=== PATIENT | male | born 1945 | race Caucasian/White ===

== ENCOUNTER 2018-06-25 05:13 | Inpatient (IN) | payer MEDICARE, BC ==
[2018-06-25 06:54] LABS: Hemoglobin 9.8 g/dL (14.0-18.0); Mean Corpuscular HGB CONC 32.8 g/dL (32.0-36.0); Mean Corpuscular Volume 97.6 fL (78.0-98.0); Mean Platelet Volume 9.6 fL (7.4-10.4); Platelet Count 495 thou/uL (130-400); RBC Distribution Width 15.7 % (11.5-14.5); Red Blood Cell (RBC) Count 3.06 mill/uL (4.70-6.10); White Blood Cell (WBC) Count 27.4 thou/uL (4.8-10.8)
[2018-06-25 07:08] LABS: ALT (SGPT) 165 U/L (8-55); AST (SGOT) 358 U/L (5-34); Albumin 3.7 g/dL (3.4-4.8); Alkaline Phosphatase 108 U/L (40-150); Anion Gap 24 mmol/L (10-20); BUN (Urea Nitrogen) 29 mg/dL (8.4-25.7); Bilirubin, Total 0.5 mg/dL (0.2-1.2); CK (CPK) 457 U/L (30-200); Calc. Creatinine Clearance 0 mL/min (70-130); Calcium 10.2 mg/dL (7.8-10.44); Carbon Dioxide 30 mmol/L (23-31); Chloride 92 mmol/L (98-107); Estimated GFR-MDRD 11; Globulin 3.7 g/dL (2.4-3.5); Glucose 159 mg/dL (83-110); Phosphorus 5.4 mg/dL (2.3-4.7); Potassium 4.5 mmol/L (3.5-5.1); Protein, Total 7.4 g/dL (5.8-8.1); Sodium 141 mmol/L (136-145)
[2018-06-25 07:15] LABS: Band 44 % (5-11); Lymphocytes 4 % (21-51); MDiff Complete? YES; Metamyelocyte 3 % (0-0); Monocytes 3 % (0-10); Myelocyte 1 % (0-0); Neutrophil 45 % (42-75); PLT Morphology Comment Appears Increased; Polychromasia SLIGHT = 2-3 cells (100X) (0-2/hpf); Reflex for Review?? YES; Toxic Granulation SLIGHT; Vacuoles MODERATE
[2018-06-25 08:06] LABS: Troponin I 0.036 ng/mL (< 0.028)
[2018-06-25] MEDS ORDERED: Piperacillin/Tazobactam 4.5 GM VIAL ONE (09:25)
[2018-06-25] MEDS ORDERED: Piperacillin/Tazobactam 4.5 GM in Sodium Chloride 0.9% 100 ML IVPB SCH (09:30)
--- NOTE | 2018-06-25 10:07 | RAD ---
PORTABLE UPRIGHT FRONTAL CHEST RADIOGRAPH: 06/25/2018 HISTORY: Fall. COMPARISON: 12/24/2015 FINDINGS: Midline sternotomy wires and mediastinal clips are present. No pneumothorax or pleural fluid is seen . There is no lobar consolidation or alveolar edema. IMPRESSION: No acute findings. POS: [facility]
[2018-06-25 12:21] LABS: Lactic Acid 2.1 mmol/L (0.5-2.2)
[2018-06-25] MEDS ORDERED: Dextrose 5% in Water 1,000 ML IV PRN (14:01)
[2018-06-25] MEDS ORDERED: Dextrose 50% Abboject 50 ML SYRINGE SLOW IVP PRN (14:01)
[2018-06-25] MEDS ORDERED: HumaLOG 300 UNITS/3 ML VIAL SC PRN (14:01)
[2018-06-25] MEDS ORDERED: Acetaminophen 325 MG TAB PO PRN (14:01)
[2018-06-25] MEDS ORDERED: Ondansetron ODT 4 MG TAB PO PRN (14:01)
[2018-06-25] MEDS ORDERED: hydrALAZINE 20 MG/ML VIAL SLOW IVP PRN (14:01)
[2018-06-25] MEDS ORDERED: VANCOMYCIN IVPB PRN (14:08)
--- NOTE | 2018-06-25 14:22 | HP ---
DATE OF ADMISSION: 06/25/2018 PRIMARY CARE PHYSICIAN: Dr. Turcios. CHIEF COMPLAINT: Severe weakness. HISTORY OF PRESENT ILLNESS: Mr. Keller is a pleasant 73-year-old gentleman that has a history of e nd-stage renal disease on hemodialysis. He also has a history of hypertension and diabetes mellitus. He was in his usual state of health until after dialysis. This past dialysis, he felt very weak an d felt like his legs were just going to give out. He says that he had to basically drag himself back into the house. He thought that it might be his blood sugar, so he took some sugar pills, but it di d not improve and he continued to be extremely weak. As a result, he called EMS and they brought him to the hospital for evaluation. In the evaluation, it was found that he had an elevated white blood cell count at 27,000 and also an elevated lactic acid. There was no evidence of any overt infection such as in the chest. He had been having some abdominal discomfort off and on after further bea mcginnis and his workers compensation analyst had some concerns for bacterial peritonitis and apparently took a culture f rom the peritoneal cavity and it sounds like he may have given him antibiotics IV and possibly intrap eritoneal as well. This sounds like this was done about a week ago and he is being admitted for furt her evaluation and treatment. The patient also mentions having some nausea and vomiting off and on a nd he started having diarrhea while here in the emergency room. Prior to that, he was having constip ation and besides that, he does have the extreme fatigue and some occasional dizziness. Otherwise, n o other complaints. REVIEW OF SYSTEMS: All systems were reviewed and are negative except for that mentioned in the histo ry of present illness. PAST MEDICAL HISTORY: Significant for end-stage renal disease on hemodialysis, coronary artery disea se, cerebrovascular disease, hypertension, diabetes mellitus and hypercholesterolemia. PAST SURGICAL HISTORY: He has had a cholecystectomy, rotator cuff tear and he has had bypass surgery . ALLERGIES: No known drug allergies. FAMILY HISTORY: Significant for father who had deep vein thrombosis or thrombophlebitis and fro m this. SOCIAL HISTORY: He is a former smoker. He had smoked 4 packs a day at one time and has a 40-pack-ye ar history of smoking. Occasional alcohol use. No illicit drug use. He is single and never been ma rried. He is retired from the postal service. CODE STATUS: Full code and his sister, Ms. Neda Anton is his surrogate medical decision maker. MEDICATIONS: His medications are taken from the records in the ER and include glipizide 5 mg daily, simvastatin 20 mg daily, gemfibrozil 600 mg twice a day, losartan 100 mg daily, aspirin 81 mg daily, calcium acetate 667 mg 2 tablets 3 times a day with meals, metoprolol 50 mg daily, vitamin D3 5000 un its daily, amlodipine 10 mg once at bedtime, fluticasone nasal spray, isosorbide mononitrate extended release 30 mg daily. PHYSICAL EXAMINATION: GENERAL: He is awake and alert and oriented. He appears to be in no acute distress. VITAL SIGNS: Blood pressure was 101/53, heart rate 84, respiratory rate of 20, temperature is 98.1, O2 sats 92% on room air. HEENT: Pupils are equal, round and reactive. Extraocular muscles are intact. His sclerae are anict salima. Throat, there is no erythema, no exudates. NECK: No adenopathy, no bruits. LUNGS: He has got basilar crackles on both sides and a patch of E to A change on the left in the mid lung zone area. CARDIOVASCULAR: He had a normal S1, S2. There is no S3 or S4. No murmurs, clicks, no rubs. ABDOMEN: Obese, it is soft. There was no tenderness. I was unable to appreciate any organomegaly; however, his abdomen was quite distended. The peritoneal catheter was in place. There was some bernardo r, but reddish fluid from the peritoneal dialysis catheter. There is no erythema around the site. N egative fluid wave. EXTREMITIES: In his lower extremities, there is no edema. His dorsalis pedis pulses were diminished and I was actually unable to palpate any dorsalis pedis on the right. On the left, it was about 1+ and the left foot seemed to be a little bit warmer than on the right; however, there was no cyanosis. He did have some diminished or slow to sluggish capillary refill, but no cuts or lesions. NEUROLOGICAL: The straight leg raises were negative and again there was no weakness in his muscle st rength. LABORATORY RESULTS: His sodium was 141, his potassium was 4.5, chloride is 92, CO2 is 24, BUN of 29, creatinine of 5.05, glucose is 159, bilirubin is 0.5, AST 358, ALT is 165, creatinine kinase was 457 . Troponin was 0.036. White blood cell count 27.4, hemoglobin 9.8, hematocrit is 29.9, platelet cou nt is 495,000. He had 44% bands. ASSESSMENT AND PLAN: 1. This is a pleasant 73-year-old gentleman who comes with generalized weakness in both of his legs, the etiology of which is unclear; however, we suspect that it is likely due to sepsis. He meets sep sis criteria with elevated white blood cell count and generalized weakness as well as an elevated lac tic acid. His LFTs are also elevated as well. He has a history of having a cholecystectomy. It is possible that the LFTs could be elevated due to sepsis as well. The source is possibly from bacteria l peritonitis. He will be admitted and started on IV antibiotics. Cultures have been taken from his workers compensation analyst and therefore, we will contact him and hopefully he can send the results to us so that we can tailor his antibiotics. The workers compensation analyst corporate travel consultant would like to have the PD catheter removed a nd likely we can culture the PD catheter tip. 2. Elevated liver function tests, again likely related to sepsis; however, we will check a hepatitis panel and he has already had his gallbladder removed. He does not appear to have a cholestatic pict ure as his alkaline phosphatase and bilirubin are within normal limits. 3. End-stage renal disease. We will continue hemodialysis and Dr. Rojas has already been notified . 4. Diabetes mellitus. We will start his usual medications as well as sliding scale insulin. We kaleb l also get PT, OT assessment to evaluate his strength. If he continues to have leg weakness, then we will need to entertain alternative diagnosis such as disease in the lumbar spine, etc.
[2018-06-25] MEDS: Heparin 5,000 UNITS/ML VIAL SC SCH ×2 (15:39→20:26)
[2018-06-25 15:45] VITALS: BMI 25.4
[2018-06-25 16:25] LABS: HBCM Index 0.06 S/CO (0-0.79); HBSAg Index 0.21 S/CO (0-0.99); Hep A IgM AB Non-Reactive (NonReactive); Hep A IgM S/CO 0.09 S/CO (0-0.79); Hep B Surf Ag Non-Reactive S/CO (NonReactive); Hep C IgG Ab Non-Reactive (NonReactive); Hep C Index 0.12 S/CO (0-0.79); Hepatitis B Core IGM Abs Non-Reactive (NonReactive)
[2018-06-25] MEDS ORDERED: Vancomycin HCl 500 MG in Sodium Chloride 0.9% 100 ML IVPB SCH (16:30)
[2018-06-25] MEDS ORDERED: HOLD VANCOMYCIN FOR LEVEL >20 FS SCH (16:30)
[2018-06-25] MEDS ORDERED: Vancomycin HCl 1 GM in Premix Bag 1 BAG IVPB SCH (16:30)
[2018-06-25] MEDS ORDERED: Vancomycin HCl 1.25 GM in Sodium Chloride 0.9% 250 ML 250 ML IVPB SCH (16:30)
[2018-06-25] MEDS: Vancomycin HCl 500 MG in Sodium Chloride 0.9% 100 ML IVPB SCH ×2 (18:41→20:21)
[2018-06-25] MEDS: Piperacillin/Tazobactam 2.25 GM in Sodium Chloride 0.9% 100 ML IVPB SCH (21:30)
--- NOTE | 2018-06-26 00:51 | CON ---
DATE OF CONSULTATION: 06/25/2018 CONSULTING PHYSICIAN: Dr. Leopoldo Ordaz. REASON FOR CONSULTATION: End-stage renal disease evaluation and care. REASON FOR ADMISSION: Weakness. HISTORY OF PRESENT ILLNESS: This is a 73-year-old male with a history of end-stage renal disease, co ronary artery disease, cerebrovascular disease, type 2 diabetes, hypertension, came to the hospital w [facility]. He has dialysis Thursday, and Thursday and Dr. Escudero from [facility]. He does not round her and I was asked to see the patient while he is being treated at [facility]. Denies any fever . He was also having leukocytosis and there was concern for peritoniti s. His PD fluid was sent for cultures. He was given vancomycin and gentamicin as outpatient. No ch est pain, palpitation, no nausea, vomiting, or diarrhea. He denies any abdominal pain or back pain. PAST MEDICAL HISTORY: Positive for end-stage renal disease, coronary artery disease, cerebrovascular disease, hypertension, diabetes, hyperlipidemia. PAST SURGICAL HISTORY: Cholecystectomy, rotator cuff surgery, bypass surgery. HOME MEDICATIONS: Glipizide, simvastatin, gemfibrozil, losartan, aspirin, calcium acetate, metoprolo l, vitamin D3, amlodipine, fluticasone, isosorbide mononitrate. ALLERGIES: No known drug allergies. SOCIAL HISTORY: No smoking, alcohol or illicit drug abuse. He is a former smoker. FAMILY HISTORY: Positive for clots. REVIEW OF SYSTEMS: The following complete review of systems was negative, unless otherwise mentioned in the HPI or below: Constitutional: Weight loss or gain, ability to conduct usual activities. Sk in: Rash, itching. Eyes: Double vision, pain. ENT/Mouth: Nose bleeding, neck stiffness, pain, te nderness. Cardiovascular: Palpitations, dyspnea on exertion, orthopnea. Respiratory: Shortness of breath, wheezing, cough, hemoptysis, fever or night sweats. Gastrointestinal: Poor appetite, abdom inal pain, heartburn, nausea, vomiting, constipation, or diarrhea. Genitourinary: Urgency, frequenc y, dysuria, nocturia. Musculoskeletal: Pain, swelling. Neurologic/Psychiatric: Anxiety, depressio n. Allergy/Immunologic: Skin rash, bleeding tendency. PHYSICAL EXAMINATION: GENERAL: This is a well-built male, in no apparent distress. VITAL SIGNS: Temperature 97.5, pulse 80, respiratory rate 16, blood pressure 105/67. HEENT: Atraumatic, normocephalic. Oral mucosa is moist. NECK: Supple, no masses. CARDIOVASCULAR: S1, S2 heard. Rate and rhythm regular. RESPIRATORY: Clear. GASTROINTESTINAL: Abdomen is soft distended and nontender. MUSCULOSKELETAL: 1+ edema. DERMATOLOGIC: No skin rash. NEUROLOGIC: Alert and awake. PSYCHIATRIC: Normal mood and affect. LABORATORY DATA: Hemoglobin is 9.8. Potassium is 4.5, BUN is 29, creatinine is 5.05. ASSESSMENT AND PLAN: 1. End-stage renal disease. Plan is to continue on dialysis Thursday, and Thursday . 2. Edema, controlled. 3. Hypertension, stable. 4. Anemia. We will add Epogen with dialysis. 5. Leukocytosis. PD fluid culture sent from outpatient, followup the results and continue broad spe ctrum antibiotics. We will monitor vancomycin level. We will continue on dialysis Thursday, and Thursday as tolerated. Thank you for the consult.
[2018-06-26] MEDS: Piperacillin/Tazobactam 2.25 GM in Sodium Chloride 0.9% 100 ML IVPB SCH ×3 (03:54→21:16)
[2018-06-26 05:36] LABS: Anion Gap 21 mmol/L (10-20); BUN (Urea Nitrogen) 48 mg/dL (8.4-25.7); Calc. Creatinine Clearance 11 mL/min (70-130); Calcium 9.3 mg/dL (7.8-10.44); Carbon Dioxide 27 mmol/L (23-31); Chloride 98 mmol/L (98-107); Estimated GFR-MDRD 9; Potassium 3.9 mmol/L (3.5-5.1); Sodium 142 mmol/L (136-145)
[2018-06-26 05:40] LABS: Glucose 46 mg/dL (83-110)
[2018-06-26 06:44] LABS: Band 2 % (5-11); Eosinophils 4 % (0-10); Hemoglobin 8.4 g/dL (14.0-18.0); Hypochromia SLIGHT = 6-15 cells (100X) (0-5/hpf); Lymphocytes 17 % (21-51); MDiff Complete? YES; Mean Corpuscular HGB CONC 31.3 g/dL (32.0-36.0); Mean Corpuscular Hemoglobin 30.5 pg (27.0-31.0); Mean Corpuscular Volume 97.4 fL (78.0-98.0); Mean Platelet Volume 10.2 fL (7.4-10.4); Monocytes 9 % (0-10); Neutrophil 68 % (42-75); PLT Morphology Comment Appears Adequate; Platelet Count 372 thou/uL (130-400); RBC Distribution Width 15.8 % (11.5-14.5); Red Blood Cell (RBC) Count 2.77 mill/uL (4.70-6.10); White Blood Cell (WBC) Count 21.3 thou/uL (4.8-10.8)
[2018-06-26 08:54] LABS: Vancomycin, Random 21.2 ug/mL (See Comment)
[2018-06-26] MEDS ORDERED: Vancomycin HCl 1 GM in Premix Bag 1 BAG IVPB SCH (09:00)
[2018-06-26] MEDS: Heparin 5,000 UNITS/ML VIAL SC SCH ×3 (09:00→21:19)
[2018-06-26] MEDS: Epoetin (ESRD) 20,000 UNITS/ML IVP SCH (10:00)
--- NOTE | 2018-06-26 11:41 | PDOC.PN ---
- Subjective Encounter Start Date: 06/26/18 Encounter Start Time: 11:39 Mr. Vazquez was seen today in follow-up of generalized weakness, and possible Peritonitis. - Objective Resuscitation Status: Resuscitation Status FULL:Full Resuscitation MAR Reviewed: Yes Vital Signs & Weight: Vital Signs (12 hours) Temp Pulse Resp BP Pulse Ox 06/26/18 07:10 97.7 F 83 16 98 06/26/18 07:09 97.7 F 83 16 101/64 98 06/26/18 04:00 97.8 F 79 16 113/68 98 06/26/18 00:00 97.9 F 79 16 96/67 95 Weight Weight 167 lb 9 oz Result Diagrams: 06/26/18 04:37 06/26/18 04:37 Additional Labs: Accuchecks 06/26/18 06/26/18 06/25/18 06:26 05:09 19:50 POC Glucose 93 59 L* 147 H 06/25/18 17:02 POC Glucose 108 Phys Exam - Physical Examination HEENT: PERRLA Respiratory: no wheezing, no rales, no rhonchi, clear to auscultation bilateral Cardiovascular: RRR, no significant murmur, no rub Gastrointestinal: soft, non-tender, positive bowel sounds Musculoskeletal: no edema Neurological: non-focal Dx/Plan (1) Sepsis Code(s): A41.9 - SEPSIS, UNSPECIFIED ORGANISM Status: Acute (2) End stage renal disease on dialysis Code(s): N18.6 - END STAGE RENAL DISEASE; Z99.2 - DEPENDENCE ON RENAL DIALYSIS Status: Chronic (3) Hypertension Code(s): I10 - ESSENTIAL (PRIMARY) HYPERTENSION Status: Chronic (4) Diabetes mellitus type 2 in nonobese Code(s): E11.9 - TYPE 2 DIABETES MELLITUS WITHOUT COMPLICATIONS Status: Chronic - Plan * Sepsis- ? related to Bacterial Peritonitis- I spoke with Dr. Jason Escudero his Mill Attendant, who says the PD cultures are still pending, and he expects them back on Thursday * Removal of PD catheter is recommended- will consult General Surgery for this * DM- he had some episodes of hypoglycemia- will need to encourage oral intake * HTN- blood pressure is stable.
--- NOTE | 2018-06-26 11:53 | PRG ---
DATE OF SERVICE: 06/26/2018 SUBJECTIVE: Patient was seen and examined at bedside and overnight events noted. Patient denies any shortness of breath or chest pain or palpitation. No history of nausea or vomiting or diarrhea or f ever or chills or cramps. OBJECTIVE: GENERAL: This is a well-built male in no apparent distress, seen during dialysis. VITAL SIGNS: Temperature 97.7, pulse 82, respirations 16, blood pressure 101/64. HEENT: Atraumatic, normocephalic. Oral mucosa is moist. NECK: Supple. CARDIOVASCULAR: S1, S2 heard. Rate and rhythm regular. RESPIRATORY: Clear to auscultation. GASTROINTESTINAL: Abdomen is soft. MUSCULOSKELETAL: No tenderness, no edema. DERMATOLOGIC: No skin rash. NEUROLOGIC: Alert and awake and oriented x3. No focal neurologic deficits. Moving all the extremit ies. PSYCHIATRIC: Mood and affect normal. LABORATORY DATA: Potassium is 3.9, BUN is 48, creatinine is 6.3. ASSESSMENT AND PLAN: 1. End-stage renal disease, continue on hemodialysis, Thursday, , Thursday as tolerated. 2. Edema, controlled. 3. Hypertension. 4. Anemia. Continue hemodialysis as tolerated.
[2018-06-26] MEDS: Famotidine 20 MG TAB PO SCH (12:32)
--- NOTE | 2018-06-27 00:06 | CON ---
DATE OF CONSULTATION: 06/26/2018 REASON FOR CONSULTATION: Removal of peritoneal dialysis catheter. HISTORY: Mr. Keller is a 73-year-old man with end-stage renal failure. He was previously on perit saenz dialysis, but has transitioned to hemodialysis with a right-sided fistula in place which is fun ctioning well. He states that he last tried to use his peritoneal dialysis catheter 2 weeks ago, but it was painful and would not infuse. He has undergone revision of this already and his surgeon has told him that he does not think that it can be revised farther. His dentofacial orthopedics dentist is concerned that celestine coates has peritonitis since he had some abdominal pain. Peritoneal cultures have been sent, but these re sults are not available on the computer. The patient denies any abdominal pain at the current time a nd has not had any fevers or chills. He came into the hospital because of feeling weak and he is daxa pected to be septic due to his peritonitis, but he is feeling better since getting IV fluids and anti biotics. PAST MEDICAL HISTORY: End-stage renal disease, coronary artery disease, cerebrovascular disease, hyp ertension, diabetes, and hyperlipidemia. PAST SURGICAL HISTORY: Cholecystectomy, peritoneal dialysis catheter placement and revision, rotator cuff tear, bypass surgery and right AV fistula. ALLERGIES: No known drug allergies. OUTPATIENT MEDICATIONS: Amlodipine, aspirin, PhosLo, glipizide, losartan, metoprolol, and simvastati n. INPATIENT MEDICATIONS: Procrit, Pepcid, sliding scale insulin, subcu heparin, sliding scale vancomyc in, and Zosyn. FAMILY HISTORY: Noncontributory. REVIEW OF SYSTEMS: Ten system review of systems is negative except per HPI as well as occasional edward sea and diarrhea. He states that when he tried to use his peritoneal dialysis catheter, it was very painful for him. SOCIAL HISTORY: He does not use illicit drugs and quit smoking many years ago, but used to be a heav y smoker, only social alcohol use. LABORATORY DATA: Chest x-ray did not show any obvious infiltrates and blood cultures are no growth t o date. White count is still elevated, but has gone from 27,000 to 21,000. Hematocrit 27, platelets 372. Glucose has been intermittently low in the 40s and 50s, but was 119 on his most recent check. Electrolytes are unremarkable. BUN and creatinine are 48 and 6.34. Random vancomycin level this mo rning was 21. PHYSICAL EXAMINATION: VITAL SIGNS: The patient has been afebrile since his admission. Heart rate 90, respirations 18, 95% saturated on nasal cannula O2. Blood pressure 129/78, but has been as low as 98/60. GENERAL: Reve als a healthy appearing elderly man in no acute distress. He is not flushed or toxic in appearance. He is not jaundiced or icteric. HEENT: Unremarkable. NECK: Supple, without lymphadenopathy or thyroid nodules. HEART: Regular in its rate and rhythm without murmurs, rubs or gallops. LUNGS: Clear. ABDOMEN: Soft, nontender and nondistended. His PD catheter is in place and there is no discharge or erythema. EXTREMITIES: Warm and well perfused without edema. He has an excellent thrill in his right forearm AV fistula. NEUROLOGIC: No focal deficits. PSYCHIATRIC: Alert, oriented, and appropriate. ASSESSMENT: Suspected sepsis due to peritoneal dialysis catheter-associated peritonitis. His perito evan dialysis catheter is nonfunctional, and he has converted to hemodialysis, and so his nephrologis t has requested removal of the peritoneal dialysis catheter. I have scheduled this for tomorrow. He is on scheduled antibiotics. The procedure and its inherent risks were discussed with the patient. These include, but are not limited to bleeding, infection, risks of anesthesia, damage to nearby str uctures such as intestine, hernia, and wound healing problems. He understands and accepts these risk s and wishes to proceed. All of his questions were answered.
[2018-06-27] MEDS: Piperacillin/Tazobactam 2.25 GM in Sodium Chloride 0.9% 100 ML IVPB SCH ×3 (04:59→20:53)
[2018-06-27] MEDS: Heparin 5,000 UNITS/ML VIAL SC SCH ×3 (09:00→20:54)
[2018-06-27] MEDS ORDERED: Fentanyl 100 MCG/2 ML VIAL ONE (09:06)
[2018-06-27] MEDS ORDERED: Lidocaine 2% Jelly 5 ML TUBE ONE (09:06)
[2018-06-27] MEDS ORDERED: Sodium Chloride 0.9% 0 ML ONE (09:11)
[2018-06-27] MEDS ORDERED: Bupivacaine/Epinephrine 0.25% 30 ML VIAL ONE (09:11)
[2018-06-27] MEDS ORDERED: Lidocaine 2% 10 ML INJ ONE (09:11)
[2018-06-27 09:41] LABS: Anion Gap 15 mmol/L (10-20); BUN (Urea Nitrogen) 26 mg/dL (8.4-25.7); Calc. Creatinine Clearance 16 mL/min (70-130); Calcium 8.9 mg/dL (7.8-10.44); Carbon Dioxide 27 mmol/L (23-31); Chloride 100 mmol/L (98-107); Estimated GFR-MDRD 13; Glucose 127 mg/dL (83-110); Potassium 4.1 mmol/L (3.5-5.1); Sodium 138 mmol/L (136-145)
[2018-06-27] MEDS ORDERED: Ondansetron HCl/PF 4 MG/2 ML Vial IVP PRN (10:27)
[2018-06-27] MEDS ORDERED: Promethazine HCl 25 MG/ML VIAL IM PRN (10:27)
[2018-06-27] MEDS ORDERED: Promethazine HCl 25 MG/ML VIAL SLOW IVP PRN (10:27)
[2018-06-27 11:17] LABS: Band 4 % (5-11); Eosinophils 4 % (0-10); Hemoglobin 9.2 g/dL (14.0-18.0); Hypochromia SLIGHT = 6-15 cells (100X) (0-5/hpf); Lymphocytes 18 % (21-51); MDiff Complete? YES; Mean Corpuscular HGB CONC 32.3 g/dL (32.0-36.0); Mean Corpuscular Hemoglobin 31.6 pg (27.0-31.0); Mean Corpuscular Volume 97.7 fL (78.0-98.0); Mean Platelet Volume 9.9 fL (7.4-10.4); Monocytes 6 % (0-10); Neutrophil 68 % (42-75); PLT Morphology Comment Appears Adequate; Platelet Count 392 thou/uL (130-400); Polychromasia SLIGHT = 2-3 cells (100X) (0-2/hpf); RBC Distribution Width 15.8 % (11.5-14.5); Red Blood Cell (RBC) Count 2.91 mill/uL (4.70-6.10); White Blood Cell (WBC) Count 13.5 thou/uL (4.8-10.8)
[2018-06-27] MEDS: Famotidine 20 MG TAB PO SCH (11:23)
[2018-06-27] MEDS ORDERED: Triple Antibiotic Oint 1 GM Packet TOP PRN (11:28)
--- NOTE | 2018-06-27 13:54 | PRG ---
DATE OF SERVICE: 06/27/2018. SUBJECTIVE: Patient was seen and examined at bedside and overnight events noted. Patient denies any shortness of breath or chest pain or palpitation. No history of nausea or vomiting or diarrhea or f ever or chills or cramps. OBJECTIVE: GENERAL: This is a well-built male in no apparent distress. VITAL SIGNS: Temperature 97.7, pulse 93, respiration 18, blood pressure 122/70. HEENT: Atraumatic, normocephalic. Oral mucosa is moist. NECK: Supple. CARDIOVASCULAR: S1, S2 heard. Rate and rhythm regular. RESPIRATORY: Clear to auscultation. GASTROINTESTINAL: Abdomen is soft. MUSCULOSKELETAL: No tenderness, no edema. DERMATOLOGIC: No skin rash. NEUROLOGIC: Alert and awake and oriented x3. No focal neurologic deficits. Moving all the extremit ies. PSYCHIATRIC: Mood and affect normal. LABORATORY DATA: Potassium is 4.1, BUN 26, creatinine is 4.4. ASSESSMENT AND PLAN: 1. End-stage renal disease. Continue on hemodialysis Thursday, , and Thursday. 2. Edema, . 3. Hypertension, stable. 4. Anemia. Plan is to continue on dialysis as tolerated.
[2018-06-27] MEDS ORDERED: Lidocaine 1% PF 5 ML VIAL ONE (14:19)
[2018-06-27] MEDS ORDERED: Ondansetron HCl/PF 4 MG/2 ML Vial ONE (14:19)
[2018-06-27] MEDS ORDERED: PROPOFOL 200 MG/20 ML VIAL ONE (14:19)
[2018-06-27] MEDS ORDERED: ePHEDrine/0.9% NaCl/PF SYRINGE 50 mg/10 ml ONE (14:19)
[2018-06-27] MEDS ORDERED: PHENYLEPHRINE-NS 100 MCG/ML 10 ML SYRINGE ONE (14:19)
--- NOTE | 2018-06-27 14:57 | PDOC.PN ---
- Subjective Encounter Start Date: 06/27/18 Encounter Start Time: 14:56 Mr. Keller was seen today in follow-up of generalized weakness. He says he is doing better, and has less abdominal pain, and is feeling stronger. - Objective Resuscitation Status: Resuscitation Status FULL:Full Resuscitation MAR Reviewed: Yes Vital Signs & Weight: Vital Signs (12 hours) Temp Pulse Resp BP Pulse Ox 06/27/18 12:00 104/65 06/27/18 11:20 97.7 F 88 18 103/62 94 L 06/27/18 07:20 97.7 F 93 16 96 06/27/18 07:08 97.7 F 93 16 122/70 96 06/27/18 04:44 98.6 F 89 20 95/60 100 Weight Weight 167 lb 9 oz I&O: 06/26/18 06/27/18 06/28/18 06:59 06:59 06:59 Intake Total 1030 Output Total 0 Balance 1030 Result Diagrams: 06/27/18 08:52 06/27/18 08:52 Additional Labs: Accuchecks 06/27/18 06/27/18 06/26/18 11:39 04:47 16:32 POC Glucose 121 H 197 H 119 H Phys Exam - Physical Examination HEENT: PERRLA Respiratory: no wheezing, no rales, no rhonchi, clear to auscultation bilateral Cardiovascular: RRR, no significant murmur, no rub Gastrointestinal: soft, non-tender, positive bowel sounds Musculoskeletal: no edema Dx/Plan (1) Sepsis Code(s): A41.9 - SEPSIS, UNSPECIFIED ORGANISM Status: Acute (2) End stage renal disease on dialysis Code(s): N18.6 - END STAGE RENAL DISEASE; Z99.2 - DEPENDENCE ON RENAL DIALYSIS Status: Chronic (3) Hypertension Code(s): I10 - ESSENTIAL (PRIMARY) HYPERTENSION Status: Chronic (4) Diabetes mellitus type 2 in nonobese Code(s): E11.9 - TYPE 2 DIABETES MELLITUS WITHOUT COMPLICATIONS Status: Chronic - Plan * Sepsis- Presumed from bacterial peritonitis- his WBC count is continuing to go down * Hopefully culture results will be available tomorrow * The PD catheter has been removed * Continue PT/OT * HTN- blood pressure is stable * DM- blood glucose is stable.
[2018-06-28] MEDS: Piperacillin/Tazobactam 2.25 GM in Sodium Chloride 0.9% 100 ML IVPB SCH ×3 (04:59→21:01)
[2018-06-28 06:18] LABS: Anion Gap 20 mmol/L (10-20); BUN (Urea Nitrogen) 36 mg/dL (8.4-25.7); Calc. Creatinine Clearance 12 mL/min (70-130); Calcium 8.4 mg/dL (7.8-10.44); Carbon Dioxide 21 mmol/L (23-31); Chloride 102 mmol/L (98-107); Estimated GFR-MDRD 9; Glucose 130 mg/dL (83-110); Potassium 3.7 mmol/L (3.5-5.1); Sodium 139 mmol/L (136-145)
[2018-06-28 07:06] LABS: Hemoglobin 8.6 g/dL (14.0-18.0); Mean Corpuscular HGB CONC 33.9 g/dL (32.0-36.0); Mean Corpuscular Hemoglobin 33.3 pg (27.0-31.0); Mean Corpuscular Volume 98.2 fL (78.0-98.0); Mean Platelet Volume 9.5 fL (7.4-10.4); Platelet Count 352 thou/uL (130-400); RBC Distribution Width 15.9 % (11.5-14.5); Red Blood Cell (RBC) Count 2.57 mill/uL (4.70-6.10); White Blood Cell (WBC) Count 10.7 thou/uL (4.8-10.8)
[2018-06-28] MEDS: Famotidine 20 MG TAB PO SCH (08:03)
[2018-06-28] MEDS: Heparin 5,000 UNITS/ML VIAL SC SCH ×3 (08:03→21:05)
[2018-06-28 08:07] LABS: Band 5 % (5-11); Eosinophils 7 % (0-10); Lymphocytes 20 % (21-51); MDiff Complete? YES; Metamyelocyte 1 % (0-0); Monocytes 5 % (0-10); Myelocyte 3 % (0-0); Neutrophil 58 % (42-75); PLT Morphology Comment Appears Adequate; Polychromasia MODERATE = 3-4 cells (100X) (0-2/hpf); Promyelocytes 1 % (0-0)
--- NOTE | 2018-06-28 10:51 | PRG ---
DATE OF SERVICE: 06/28/2018 SUBJECTIVE: A 73-year-old gentleman being seen for end-stage renal disease. The patient denies any nausea, vomiting or chest pain. PHYSICAL EXAMINATION: GENERAL: Patient is awake, alert. VITAL SIGNS: Afebrile, pulse 92, breathing 16, blood pressure 146/76. OBJECTIVE: See above. Awake, alert, in no acute distress. GENERAL APPEARANCE AND MENTAL STATUS: Fair. HEAD/NECK: Normocephalic. Atraumatic. EYES: EOMI. No deformity. EARS: Clear. No ulcers. NOSE: Intact. No lesions. MOUTH: Clear. No discharge. THROAT: Clear. No exudate. LUNGS: Clear. No crackles. CARDIAC: S1, S2. No rub. ABDOMEN: Benign. BS+. GENITALIA/RECTUM: Call absent. BACK/EXTREMITIES: Edema 0+ Ulcer- NEUROLOGICAL: Alert and motor intact. SKIN: Rash- Bruise- LYMPHATICS: Edema- Ulcer- LABORATORY: Hemoglobin 8.6. ASSESSMENT AND RECOMMENDATIONS: 1. Stage 6 chronic kidney disease. Plan hemodialysis. 2. Hypertension, stable. 3. Anemia, stable. 4. Medication based on glomerular filtration rate are appropriate.
--- NOTE | 2018-06-28 17:10 | PDOC.PN ---
- Subjective Encounter Start Date: 06/28/18 Encounter Start Time: 17:05 Mr. Keller was seen today in follow-up of Leunocytosis and generalized weakness. He says he feels fine. Much less weak. - Objective Resuscitation Status: Resuscitation Status FULL:Full Resuscitation MAR Reviewed: Yes Vital Signs & Weight: Vital Signs (12 hours) Temp Pulse Resp BP Pulse Ox 06/28/18 16:25 98.6 F 95 18 147/75 H 98 06/28/18 11:36 98.1 F 94 18 138/77 98 06/28/18 08:03 98.3 F 92 20 100 06/28/18 07:16 98.3 F 92 20 146/76 H 100 Weight Weight 167 lb 9 oz I&O: 06/27/18 06/28/18 06/29/18 06:59 06:59 06:59 Intake Total 1030 440 Output Total 0 Balance 1030 440 Result Diagrams: 06/28/18 05:53 06/28/18 05:53 Additional Labs: Accuchecks 06/28/18 06/28/18 06/27/18 10:39 04:28 21:03 POC Glucose 133 H 148 H 166 H Phys Exam - Physical Examination HEENT: PERRLA Respiratory: no wheezing, no rales, no rhonchi, clear to auscultation bilateral Cardiovascular: RRR, no significant murmur, no rub Gastrointestinal: soft, non-tender, positive bowel sounds Musculoskeletal: no edema Dx/Plan (1) Sepsis Code(s): A41.9 - SEPSIS, UNSPECIFIED ORGANISM Status: Acute (2) End stage renal disease on dialysis Code(s): N18.6 - END STAGE RENAL DISEASE; Z99.2 - DEPENDENCE ON RENAL DIALYSIS Status: Chronic (3) Hypertension Code(s): I10 - ESSENTIAL (PRIMARY) HYPERTENSION Status: Chronic (4) Diabetes mellitus type 2 in nonobese Code(s): E11.9 - TYPE 2 DIABETES MELLITUS WITHOUT COMPLICATIONS Status: Chronic - Plan * Leukocytosis and Generalized weakness- I called to speak with Dr. Escudero regarding the Cultures from the dialsylate, and unfortunately they were not revealing in that there was too much blood to run any type of results We are therefore not sure if he actually has/had Peritonitis, and if so what organism. For this reason will obtain an ID consult. * C. Diff screen was negative * HTN - blood pressure is stable * DM- blood glucose is stable
--- NOTE | 2018-06-29 02:42 | PRG ---
DATE OF SERVICE: 06/28/2018 Mr. Keller is postoperative day #1 to removal of his peritoneal dialysis catheter. He is feeling w ell and having minimal pain at incision site. He does have packing and the incision and he is going to follow up in clinic on Thursday for removal of the packing and a wound check. From a surgical [facility], he is ready for discharge.
[2018-06-29] MEDS: Piperacillin/Tazobactam 2.25 GM in Sodium Chloride 0.9% 100 ML IVPB SCH ×3 (05:20→20:17)
--- NOTE | 2018-06-29 07:41 | CON ---
DATE OF CONSULTATION: 06/28/2018 REASON FOR CONSULTATION: Possible peritonitis. HISTORY OF PRESENT ILLNESS: A 73-year-old patient who has a history of coronary artery disease, hype rtension, type 2 diabetes mellitus, and end-stage renal disease, currently on hemodialysis through a right upper extremity AV fistula. The patient had a PD catheter insertion this year at [facility] in [place], had to be revised recently because of entrapment and poor dialytic perf ormance and pain. The surgical report was reviewed. The catheter was flushed at the dialysis center , but was not draining. Also, there was an exudate within the catheter as well noted. The procedure was carried out via laparoscopy. Apparently there was some redness as well around the insertion sit e. During the procedure, there were some adhesions noted encasing the catheter in the lower abdomina l wall and there was an intensive inflammatory reaction around the catheter itself. The small bowel adhesions were bluntly cleared and then the catheter was pulled from where it was and freed completel y. Some fatty exudate was stripped from the catheter and catheter was flushed and placed in the ante rior pelvis. This procedure was carried out on 06/14/2018. After that, the patient felt progressive weakness in lower extremities with inability to maintain his position and bear weight and ambulate. He took some ____ tablets, but that did not fix the symptoms and EMS was activated. The patient de nied any fever or chills. Denied any abdominal pain, no genitourinary symptoms, no diarrhea, no blee ding. No headaches. PAST MEDICAL HISTORY: Interstitial lung disease secondary to type 2 diabetes mellitus, coronary adrienne ry disease, prior CVA, hypertension and previous AV fistula placement, PD catheter placement and repo sitioning and had a cholecystectomy in 09/2017 with a small area of perforation. ALLERGIES: None. FAMILY HISTORY: Venous thrombosis. SOCIAL HISTORY: Former smoker, drinks occasionally and is , lives alone, used to work for [employer]. CURRENT MEDICATIONS: Tylenol, dextrose, Procrit, Pepcid, glucagon, heparin, Apresoline, insulin, van comycin and sliding scale and Zosyn. PHYSICAL EXAMINATION: VITAL SIGNS: The patient has remained afebrile throughout the hospital stay. Blood pressure 140/70, pulse 95, respirations 18, O2 saturation 98%. SKIN: Examination shows the ports where the PD catheter was inserted and removal was accomplished. The patient has a peripheral IV access. No lymphadenopathy. HEENT: Ocular movements are conjugate. Sclerae white. Pupils are equal. Oral cavity normal. NECK: Supple. LUNGS: With symmetric clear breath sounds. HEART: S1, S2, regular rate. Soft aortic murmur. No S3. ABDOMEN: Soft, nontender, nondistended. No bladder distention, no organomegaly, no ascites. EXTREMITIES: No joint inflammatory activity noted. Pulses 1+ in dorsalis pedis. Moves all extremit ies equally. NEUROLOGIC: Cognitive function appears to be intact. LABORATORY DATA: White cell count 27,000 down to 10.7, hemoglobin 9.8, platelets were 495 down to 35 2, 45% neutrophils and 44% bands down to 58 and 5 at this time. Sodium 139, creatinine 5.95, AST 358 , ALT 165, alkaline phosphatase 108. Total bilirubin 0.5. Creatinine kinase 457. TSH was 1.2, albu min 3.7, globulin 3.7. Troponin 0.036. Toxicology with random vancomycin and serology with negative hepatitis serology. Microbiology: Two sets of venous blood samples negative at 48 hours. C. diff antigen toxin negative. I called the dialysis center and there was no samples submitted from the per itoneal dialysis fluid apparently. Imaging studies included chest x-ray with no acute findings. ASSESSMENT: 1. Type 2 diabetes. 2. Coronary artery disease. 3. End-stage renal disease on hemodialysis through an AV fistula. 4. Recently placed PD catheter which had to be repositioned just a few days ago because of malfuncti on with entrapment and adhesions noted during the evaluation. 5. Weakness in lower extremities without fever or abdominal pain which led to admission. 6. Neutrophilia. 7. Previous cholecystectomy in September which had some perforation. DISCUSSION: Differential diagnosis includes intra-abdominal inflammatory process, which was not symp tomatic because of diabetic neuropathy versus an alternate process, for example some form of myopathy causing muscle weakness. Bacteremia from an alternate site appears to be less likely. We will at t his point order a CT of abdomen and pelvis with contrast, oral and IV, repeat CPK to see if there is resolution of the elevation in levels detected. If the patient remains with elevated CPK then we kaleb l have to consider the possible myopathy, if not then it was just a rhabdomyolysis associated with th e acute illness. If the blood cultures remain negative and a CT of the abdomen and pelvis is normal , then I would recommend discontinuation of antimicrobial therapy.
[2018-06-29] MEDS: Heparin 5,000 UNITS/ML VIAL SC SCH ×3 (08:40→20:17)
[2018-06-29] MEDS: Famotidine 20 MG TAB PO SCH (08:40)
[2018-06-29 10:32] LABS: Vancomycin, Trough 13.6 ug/mL
[2018-06-29] MEDS: Vancomycin HCl 750 MG in Sodium Chloride 0.9% 250 ML 250 ML IVPB SCH (11:01)
--- NOTE | 2018-06-29 13:04 | PRG ---
DATE OF SERVICE: 06/29/2018 SUBJECTIVE: This is a 73-year-old gentleman being seen for end-stage renal disease. The patient den ies any nausea, vomiting or chest pain. PHYSICAL EXAMINATION: GENERAL: The patient is awake and alert. VITAL SIGNS: Afebrile, pulse 92, breathing 16, blood pressure ____. GENERAL APPEARANCE AND MENTAL STATUS: Fair. HEAD/NECK: Normocephalic. Atraumatic. EYES: EOMI. No deformity. EARS: Clear. No ulcers. NOSE: Intact. No lesions. MOUTH: Clear. No discharge. THROAT: Clear. No exudate. LUNGS: Clear. No crackles. CARDIAC: S1, S2. No rub. ABDOMEN: Benign. BS+. GENITALIA/RECTUM: Call absent. BACK/EXTREMITIES: Edema 0+. Ulcer-. NEUROLOGICAL: The patient is nonverbal. SKIN: Rash-. Bruise-. LYMPHATICS: Edema-. Ulcer-. LABORATORY DATA: Showed hemoglobin 8.6. ASSESSMENT AND RECOMMENDATIONS: ____ chronic kidney disease. Plan hemodialysis. Hypertension, stab le. Anemia, stable. Medication based on glomerular filtration rate are appropriate.
--- NOTE | 2018-06-29 14:59 | PDOC.PN ---
- Subjective Encounter Start Date: 06/29/18 Encounter Start Time: 14:56 Mr. Keller was seen today in follow-up. He does not have any complaints except that he feels a little weak. - Objective Resuscitation Status: Resuscitation Status FULL:Full Resuscitation MAR Reviewed: Yes Vital Signs & Weight: Vital Signs (12 hours) Temp Pulse Resp BP Pulse Ox 06/29/18 12:59 98.6 F 104 H 16 156/71 H 92 L 06/29/18 08:00 97.7 F 98 16 99 06/29/18 07:22 97.7 F 98 16 152/62 H 99 Weight Weight 167 lb 9 oz I&O: 06/28/18 06/29/18 06/30/18 06:59 06:59 06:59 Intake Total 440 1140 Balance 440 1140 Result Diagrams: 06/28/18 05:53 06/28/18 05:53 Additional Labs: Accuchecks 06/29/18 06/29/18 06/28/18 12:56 05:23 19:59 POC Glucose 95 121 H 130 H 06/28/18 16:24 POC Glucose 135 H Phys Exam - Physical Examination HEENT: PERRLA Respiratory: no wheezing, no rales, no rhonchi, clear to auscultation bilateral Cardiovascular: RRR, no significant murmur Gastrointestinal: soft, no distention, positive bowel sounds Musculoskeletal: no edema Dx/Plan (1) Sepsis Code(s): A41.9 - SEPSIS, UNSPECIFIED ORGANISM Status: Acute (2) End stage renal disease on dialysis Code(s): N18.6 - END STAGE RENAL DISEASE; Z99.2 - DEPENDENCE ON RENAL DIALYSIS Status: Chronic (3) Hypertension Code(s): I10 - ESSENTIAL (PRIMARY) HYPERTENSION Status: Chronic (4) Diabetes mellitus type 2 in nonobese Code(s): E11.9 - TYPE 2 DIABETES MELLITUS WITHOUT COMPLICATIONS Status: Chronic - Plan * Leukocytosis, and Generalized weakness- ? etiology- CT scan of the abdomen has been ordered * Weakness today- likely mildly volume depleted after dialysis * HTN- blood pressure is slightly ed- will monitor * DM- blood glucose -stable.
[2018-06-29] MEDS: Epoetin (ESRD) 20,000 UNITS/ML IVP SCH (15:24)
[2018-06-29] MEDS ORDERED: Epoetin (ESRD) 10,000 UNITS/ML VIAL SC SCH (16:45)
[2018-06-29] MEDS ORDERED: Epoetin (ESRD) 20,000 UNITS/ML SC SCH (17:15)
[2018-06-29] MEDS: HumaLOG 300 UNITS/3 ML VIAL SC PRN (17:35)
--- NOTE | 2018-06-29 20:19 | PDOC.GSPN ---
Surgery Progress Note: Subj - Subjective Narrative: Patient feels fine. He is a little bit sore at his incisions but otherwise is not having any abdominal pain. No nausea vomiting or diarrhea. No fever. White count was 10.7 yesterday. Abdominal exam is benign. No additional drainage from the PD catheter removal sites. He states that he is staying in the hospital because he needs to have a repeat CT, but clinically his abdomen is benign. I will plan on removing the osvaldo tomorrow. From a surgical standpoint he is ready for discharge. Surgery Progress Note: Obj - Vital signs Vital signs: Vital Signs - Most Recent Temp Pulse Resp BP Pulse Ox 98.0 F 104 H 16 168/81 H 97 06/29/18 19:35 06/29/18 19:35 06/29/18 19:35 06/29/18 19:35 06/29/18 19:35 Surgery Progress Note: Results - Labs Result Diagrams: 06/28/18 05:53 06/28/18 05:53 Lab results: Laboratory Results - last 24 hr 06/29/18 06/29/18 06/29/18 10:13 12:56 16:51 POC Glucose 95 205 H Vancomycin Trough 13.6
--- NOTE | 2018-06-29 21:08 | PDOC.OP ---
Operative Note - Operative Note Operative Note: PROCEDURE: Removal of peritoneal dialysis catheter DATE OF PROCEDURE: 06/27/2018 SURGEON: Piero Hope M.D. PREOPERATIVE DIAGNOSES: Peritoneal dialysis catheter associated peritonitis POSTOPERATIVE DIAGNOSIS: Peritoneal dialysis catheter associated peritonitis HISTORY: Patient with malfunctioning peritoneal dialysis catheter which has already been revised once and is not functioning. He has pain with infusion of dialysate and came to the hospital with suspicion of sepsis. His traveling secretary has requested removal of the dialysis catheter. Currently he denies any abdominal pain. PROCEDURE IN DETAIL: After informed consent was obtained and appropriate preoperative antibiotics continued patient was taken to the operating room he was placed in supine position and anesthesia was administered. He was prepped and draped in standard sterile fashion and local anesthesia infused the skin and subcutaneous tissues at the peritoneal dialysis catheter exit site. Dissection was carried down to the subcutaneous cuff which was dissected free. The inner cuff appeared to underlie a scar beneath the umbilicus quite some distance from the exit site so additional local anesthesia was infused at that location and a counterincision made. Dissection was carried down to the internal cuff which was dissected free of the tissues just deep to the rectus sheath. The catheter was withdrawn and discarded. There was no peritoneal fluid within the wound and the catheter was full of clot. The rectus sheath was repaired with Vicryl suture under direct vision. Both wounds were copiously irrigated. Packing was placed into both wounds and the skin incisions were partially closed. Sterile dressings were placed and the patient was taken to recovery room in good condition. Estimated blood loss was minimal. There were no complications. There were no specimens.
[2018-06-30] MEDS: Piperacillin/Tazobactam 2.25 GM in Sodium Chloride 0.9% 100 ML IVPB SCH ×3 (04:21→20:16)
[2018-06-30] MEDS: Heparin 5,000 UNITS/ML VIAL SC SCH ×3 (08:18→20:16)
[2018-06-30] MEDS: Famotidine 20 MG TAB PO SCH (08:18)
--- NOTE | 2018-06-30 09:34 | CT ---
CT ABDOMEN WITH CONTRAST: CT PELVIS WITH CONTRAST: HISTORY: Peritonitis. Dialysis patient. Leukocytosis. COMPARISON: None. TECHNIQUE: CT abdomen and pelvis is performed with IV and oral contrast. Coronal reformatted images are submitt ed. FINDINGS: ABDOMEN: Linear opacities in the lung bases, along with more focal interstitial and alveolar opaciti es are noted. Findings may represent scar and atelectasis with small superimposed alveolar infiltrat es. Heart size is normal. There are coronary calcifications. The descending thoracic aorta and abd ominal aorta demonstrate atherosclerosis. No aneurysm or dissection. No periaortic fat stranding. The portal vein is patent. Absent gallbladder. There is calcification of the splenic artery, as well as branches off the celiac artery, along the co urse of the pancreas. The pancreatic parenchyma, adrenal glands, and spleen are unremarkable. Hypoa ttenuation of the liver due to hepatic steatosis without discrete mass. Symmetric enhancement of the kidneys. Bilaterally, no obstructive uropathy. There are bilateral non obstructing intrarenal calculi. Symmetric attenuation of the psoas muscles. There is a nonspecific, mildly enlarged mesenteric lymph node, measuring 0.8 x 0.8 cm. Additional sc attered mesenteric lymph nodes are noted. No mesenteric mass, lymphadenopathy, or free air. There i s fluid in both paracolic gutters. There is evidence of mesenteric fluid predominantly in the right lower quadrant. There is a peripherally enhancing, centrally hypodense lesion in the right lower cele drant mesentery, measuring 3.3 x 4.1 cm. There is a second focus with peripheral enhancement and thi ckened peripheral soft tissue in the right lower quadrant, measuring 2.9 x 1.8 cm. There is a third focus, measuring 2.7 x 0.8 cm, with similar imaging features. There is subcutaneous fat stranding an d air in the ventral abdominal wall, along the midline and left aspect. There is fullness of the mucosa, involving the posterior gastric cardia, which may represent inadequa te distention. Underlying mass lesion cannot be completely excluded. Nonemergent endoscopy is recom mended. Small bowel loops are mildly prominent and fluid filled. There is mild thickening of the sm all bowel mucosa. The ileocecal junction is normal. A normal caliber appendix is identified. Contr ast and fecal material throughout a nondistended, nondilated colon. Occasional diverticula but no di verticulitis. PELVIS: Small amount of free fluid in the pelvis. No mass, lymphadenopathy, or free air. Unremarkable urinary bladder. Evaluation is limited by lack of complete distention. Remote compression fracture at the L3 level, with sclerosis of the superior endplate. IMPRESSION: 1. At least three discrete, peripherally enhancing, centrally hypodense fluid collections in the rig ht lower quadrant mesentery, compatible with multifocal infected fluid collections/abscesses. Given the intricacy of the lesions, with respect to the adjacent bowel, percutaneous abscess drainage is no t recommended at this time. 2. Scattered mesenteric small lymph nodes, which may, in part, be reactive. 3. Questionable mass in the gastric cardia. Nonemergent endoscopy is recommended. POS: JOVANY
--- NOTE | 2018-06-30 11:20 | PRG ---
DATE OF SERVICE: 06/30/2018 SUBJECTIVE: A 73-year-old male being seen for end-stage renal disease. The patient denies any nause a, vomiting or chest pain. PHYSICAL EXAMINATION: GENERAL: Awake, alert. VITAL SIGNS: Afebrile, pulse 91, breathing 16, blood pressure 167/81. OBJECTIVE: See above. Awake, alert, in no acute distress. GENERAL APPEARANCE AND MENTAL STATUS: Fair. HEAD/NECK: Normocephalic. Atraumatic. EYES: EOMI. No deformity. EARS: Clear. No ulcers. NOSE: Intact. No lesions. MOUTH: Clear. No discharge. THROAT: Clear. No exudate. LUNGS: Clear. No crackles. CARDIAC: S1, S2. No rub. ABDOMEN: Benign. BS+. GENITALIA/RECTUM: Call absent. BACK/EXTREMITIES: Edema 0+ Ulcer- NEUROLOGICAL: Alert and motor intact. SKIN: Rash- Bruise- LYMPHATICS: Edema- Ulcer- LABORATORY: Hemoglobin 8.6. ASSESSMENT AND PLAN: 1. Stage 6 chronic kidney disease. We will plan hemodialysis. 2. Hypertension, stable. 3. Anemia, stable. 4. Medication based on glomerular filtration rate are appropriate.
[2018-06-30] MEDS: HumaLOG 300 UNITS/3 ML VIAL SC PRN (12:48)
--- NOTE | 2018-06-30 14:29 | PDOC.PN ---
- Subjective Encounter Start Date: 06/30/18 (f/u sepsis) Encounter Start Time: 14:27 Subjective: Pt reports he's ready to go home. Some weakness -: but walking around. Some pain in the right lower abdomen. -: 3-4 loose stools per day. - Objective Resuscitation Status: Resuscitation Status FULL:Full Resuscitation Vital Signs & Weight: Vital Signs (12 hours) Temp Pulse Resp BP Pulse Ox 06/30/18 08:17 98.0 F 91 16 167/81 H 100 06/30/18 08:00 98.0 F 91 16 100 Weight Weight 167 lb 9 oz I&O: 06/29/18 06/30/18 07/01/18 06:59 06:59 06:59 Intake Total 1140 540 Output Total 4000 Balance 1140 -3460 Result Diagrams: 06/28/18 05:53 06/28/18 05:53 Additional Labs: Accuchecks 06/30/18 06/30/18 06/29/18 11:37 04:19 19:40 POC Glucose 193 H 110 83 06/29/18 16:51 POC Glucose 205 H Phys Exam - Physical Examination Constitutional: NAD Respiratory: no wheezing, no rales, no rhonchi, clear to auscultation bilateral Cardiovascular: RRR, no significant murmur Gastrointestinal: soft, non-tender, no distention, positive bowel sounds Musculoskeletal: no edema Neurological: non-focal, moves all 4 limbs Psychiatric: normal affect Skin: no rash Dx/Plan (1) Sepsis Code(s): A41.9 - SEPSIS, UNSPECIFIED ORGANISM Status: Acute Qualifiers: Sepsis type: sepsis due to unspecified organism Qualified Code(s): A41.9 - Sepsis, unspecified organism (2) Anemia Code(s): D64.9 - ANEMIA, UNSPECIFIED Status: Chronic Qualifiers: Anemia type: due to chronic kidney disease Chronic kidney disease stage: on chronic dialysis Qualified Code(s): N18.6 - End stage renal disease; D63.1 - Anemia in chronic kidney disease; D63.1 - Anemia in chronic kidney disease; Z99.2 - Dependence on renal dialysis; Z99.2 - Dependence on renal dialysis; Z99.2 - Dependence on renal dialysis; Z99.2 - Dependence on renal dialysis (3) Dyslipidemia Code(s): E78.5 - HYPERLIPIDEMIA, UNSPECIFIED Status: Chronic (4) Neuropathy Code(s): G62.9 - POLYNEUROPATHY, UNSPECIFIED Status: Chronic (5) Coronary artery disease Code(s): I25.10 - ATHSCL HEART DISEASE OF [place] CORONARY ARTERY W/O ANG PCTRS Status: Chronic (6) History of stroke Code(s): Z86.73 - PRSNL HX OF TIA (TIA), AND CEREB INFRC W/O RESID DEFICITS Status: Chronic (7) Elevated liver function tests Code(s): R94.5 - ABNORMAL RESULTS OF LIVER FUNCTION STUDIES Status: Acute (8) Diabetes mellitus type 2 in nonobese Code(s): E11.9 - TYPE 2 DIABETES MELLITUS WITHOUT COMPLICATIONS Status: Chronic (9) End stage renal disease on dialysis Code(s): N18.6 - END STAGE RENAL DISEASE; Z99.2 - DEPENDENCE ON RENAL DIALYSIS Status: Chronic (10) Hypertension Code(s): I10 - ESSENTIAL (PRIMARY) HYPERTENSION Status: Chronic - Plan * Appreciate Gen Surg - CT obtained which shows fluid collections in the RLQ - will await Dr. Willett's assessment for this * Apprecite ID - pt is on Vanc and Zosyn, add probiotic * Appreciate Nephro - HD on T, Th, Sat * * bp not controlled - add back home metoprolol and half dose of home amlodipine with hold parameters for each. * * Diarrhea - add probiotic, c diff was negative * * dvt prophy - heparin * gi prophy - not indicated * code status full * * discussed with patient that CT abnormality needs to be addressed in addition to determination on antibiotics before considering discharge. He demonstratyes understanding and agrees * * pt remains at high risk in current condition.
--- NOTE | 2018-06-30 14:54 | PDOC.GSPN ---
Surgery Progress Note: Subj - Subjective Narrative: Patient feels fine. His dressings were changed and the packing removed today. He has minimal sada-incisional tenderness and only serosanguineous drainage from the packing sites. He is to leave the Tegaderm dressing on for 2 or 3 days and then can remove it and just place antibiotic ointment and a Band-Aid at the 2 incisions. He did have several small isolated intra-abdominal abscesses on his CT scan today, but given his benign abdominal exam and stable clinical status I think that these can be treated with antibiotics alone. The largest one was 3.3 x 4.1 cm. If he deteriorates clinically then laparoscopic drainage could be considered but he may well have significant adhesions from his recent peritoneal dialysis and he would be at higher risk for needing an open procedure so I think that the risks outweigh the benefits currently. I will leave the choice of antibiotics and induration to Dr. Ventura. He can follow up with me in a couple weeks or with his established dialysis surgeon. Surgery Progress Note: Obj - Vital signs Vital signs: Vital Signs - Most Recent Temp Pulse Resp BP Pulse Ox 98.0 F 91 16 167/81 H 100 06/30/18 08:17 06/30/18 08:17 06/30/18 08:17 06/30/18 08:17 06/30/18 08:17 Surgery Progress Note: Results - Labs Result Diagrams: 06/28/18 05:53 06/28/18 05:53 Lab results: Laboratory Results - last 24 hr 06/30/18 06/30/18 04:19 11:37 POC Glucose 110 193 H
--- NOTE | 2018-06-30 17:18 | PRG ---
DATE OF SERVICE: 06/30/2018 SUBJECTIVE: Mr. Keller is feeling a little bit of pain in the right lower quadrant of his abdomen. No headaches, no respiratory symptoms, no vomiting, no diarrhea. PHYSICAL EXAMINATION: VITAL SIGNS: T-max 98 to 99.2, blood pressure 167/81, pulse 91, respirations 16. GENERAL: Appears in no distress. Awake and oriented. LUNGS: Clear. HEART: S1, S2, regular rate. No S3, S4. ABDOMEN: Soft with mild tenderness in the right lower quadrant. No ascites. No organomegaly. LABORATORY DATA: White cell count 10.7, hemoglobin 8.6, platelets 352,000. Microbiology with no new findings. IMAGING: Abdomen and pelvis CT, 3 discrete peripheral enhancing hypodense fluid collections in the r ight lower quadrant in the mesentery. ASSESSMENT AND DISCUSSION: Type 2 diabetes, coronary artery disease and end-stage renal disease with hemodialysis. Previously placed PD catheter with complications. Repositioning in [place], now entrapment and fever, chills, weakness. The patient now has had the PD catheter removed and in v iew of the fluid collections, would continue antimicrobials with vancomycin as well as oral ciproflox acin and vancomycin sliding scale. Continue treatment course for another 2-3 weeks. May need to fol lowup CT scan to verify resolution.
[2018-06-30] MEDS: Calcium Acetate 667 MG CAP PO SCH (17:27)
[2018-06-30] MEDS: Metoprolol Tartrate 50 MG TAB PO SCH (20:16)
[2018-06-30] MEDS ORDERED: Amlodipine 5 MG TAB PO SCH (21:00)
[2018-06-30] MEDS ORDERED: Atorvastatin Calcium 10 MG TAB PO SCH (21:00)
[2018-07-01] MEDS: Piperacillin/Tazobactam 2.25 GM in Sodium Chloride 0.9% 100 ML IVPB SCH ×2 (04:59→13:01)
[2018-07-01 07:22] LABS: Hemoglobin 9.2 g/dL (14.0-18.0); Mean Corpuscular HGB CONC 34.9 g/dL (32.0-36.0); Mean Corpuscular Hemoglobin 33.1 pg (27.0-31.0); Mean Corpuscular Volume 94.9 fL (78.0-98.0); Platelet Count 366 thou/uL (130-400); RBC Distribution Width 16.3 % (11.5-14.5); Red Blood Cell (RBC) Count 2.77 mill/uL (4.70-6.10); White Blood Cell (WBC) Count 14.5 thou/uL (4.8-10.8)
[2018-07-01 07:24] VITALS: BP 148/72; TEMP 98.9
[2018-07-01 07:37] LABS: Anion Gap 25 mmol/L (10-20); BUN (Urea Nitrogen) 32 mg/dL (8.4-25.7); Calc. Creatinine Clearance 10 mL/min (70-130); Calcium 8.8 mg/dL (7.8-10.44); Carbon Dioxide 17 mmol/L (23-31); Chloride 101 mmol/L (98-107); Estimated GFR-MDRD 8; Glucose 101 mg/dL (83-110); Potassium 4.1 mmol/L (3.5-5.1); Sodium 139 mmol/L (136-145)
[2018-07-01 07:47] LABS: Band 3 % (5-11); Eosinophils 9 % (0-10); Large Platelets SLIGHT; Lymphocytes 21 % (21-51); MDiff Complete? YES; Metamyelocyte 1 % (0-0); Monocytes 2 % (0-10); Myelocyte 2 % (0-0); Neutrophil 62 % (42-75); PLT Morphology Comment Appears Adequate; Polychromasia SLIGHT = 2-3 cells (100X) (0-2/hpf)
[2018-07-01] MEDS: Famotidine 20 MG TAB PO SCH (08:01)
[2018-07-01] MEDS: Heparin 5,000 UNITS/ML VIAL SC SCH (08:02)
[2018-07-01] MEDS: Metoprolol Tartrate 50 MG TAB PO SCH (08:02)
[2018-07-01] MEDS: Calcium Acetate 667 MG CAP PO SCH ×2 (08:07→13:01)
[2018-07-01] MEDS ORDERED: Triple Antibiotic Oint 1 GM Packet TOP SCH (09:00)
[2018-07-01] MEDS ORDERED: Saccharomyces boulardii 250 MG CAP PO SCH (09:00)
[2018-07-01] MEDS ORDERED: Aspirin 81 mg Enteric Coated Tablet PO SCH (09:00)
[2018-07-01] MEDS: Epoetin (ESRD) 20,000 UNITS/ML IVP SCH (09:45)
[2018-07-01 10:02] LABS: Vancomycin, Trough 13.2 ug/mL
[2018-07-01] MEDS: Vancomycin HCl 750 MG in Sodium Chloride 0.9% 250 ML 250 ML IVPB SCH (10:59)
--- NOTE | 2018-07-01 11:42 | PRG ---
DATE OF SERVICE: 07/01/2018 SUBJECTIVE: This is a 73-year-old gentleman being seen for end-stage renal disease. The patient den ies any nausea, vomiting or chest pain. OBJECTIVE: GENERAL: The patient is awake and alert. VITAL SIGNS: Afebrile, pulse 77, breathing at 16, blood pressure 140/77. HEAD/NECK: Normocephalic. Atraumatic. EYES: EOMI. No deformity. EARS: Clear. No ulcers. NOSE: Intact. No lesions. MOUTH: Clear. No discharge. THROAT: Clear. No exudate. LUNGS: Clear. No crackles. CARDIAC: S1, S2. No rub. ABDOMEN: Benign. BS+. GENITALIA/RECTUM: Call absent. BACK/EXTREMITIES: Edema 0+ Ulcer-. NEUROLOGICAL: Alert and motor intact. SKIN: Rash- Bruise- LYMPHATICS: Edema- Ulcer-. LABORATORY DATA: Show hemoglobin 9.2. ASSESSMENT AND RECOMMENDATIONS: 1. Stage 6 chronic kidney disease, stable. 2. Hypertension, stable. 3. Anemia, stable. Discharge planning is in progress.
--- NOTE | 2018-07-02 00:55 | DIS ---
DATE OF ADMISSION: 06/25/2018 DATE OF DISCHARGE: 07/01/2018 CONSULTANTS: 1. Dr. Hope of General Surgery. 2. Dr. Ventura of Infectious Disease. 3. Dr. Carlson of Nephrology. PROCEDURES PERFORMED: 1. Removal of peritoneal dialysis catheter. 2. Hemodialysis. FINAL DIAGNOSES: 1. Sepsis secondary to intra-abdominal abscess in the right lower quadrant. 2. End-stage renal disease, on hemodialysis. 3. Hypertension. 4. Diabetes mellitus. 5. Chronic normocytic anemia. 6. History of stroke 7. Elevated liver function tests 8. Neuropathy MEDICATIONS: Reconciled at discharge. NEW MEDICATIONS: 1. Ciprofloxacin 250 mg b.i.d., prescription provided for 28 days. 2. Florastor 1 capsule daily, prescription provided for 60 days. MEDICATIONS TO CONTINUE: 1. Norvasc 10 mg at night. 2. Aspirin 81 mg daily. 3. PhosLo 667 mg capsule 2 capsules t.i.d. with meals. 4. Losartan 100 mg daily. 5. Metoprolol tartrate 50 mg b.i.d. 6. Simvastatin 20 mg at bedtime. 7. Glipizide 5 mg daily. FOLLOWUP: 1. Follow up with Dr. Hope in 2 weeks for reevaluation of the wound, and ordering of the follow up CT scan in 3 weeks. 2. Follow up with hemodialysis as scheduled for tomorrow. He will receive IV vancomycin with hemodialysis for the next 4 weeks. 3. Follow up with Dr. Escudero at [facility] as previously directed. 4. Follow up with the primary care provider within 2 weeks to review this hospitalization and address any other needs. WOUND CARE: Triple antibiotic for the next 10 days and cover with a Band-Aid. Follow up with Dr. Hope as noted above. DIET: Renal prudent diet and carbohydrate consistent . HISTORY OF PRESENT ILLNESS: Mr. Keller is a 73-year-old male who presented to the emergency room after feeling weak after dialysis. He thought it might be his blood sugar and took some sugar pills; however, did not improve. EMS was called, and in the ER, he was found to have a white count of 27,000 and elevated lactic acid. He had a peritoneal dialysis catheter in place, was started on IV antibiotics and Hospitalist called for admission. HOSPITAL COURSE: The patient has been managed with Zosyn and vancomycin, following the blood cultures are negative at 5 days. He has had loose stools and C. diff study was performed that was also negative. He underwent a CT of the abdomen and pelvis on 06/30 which showed at least three discrete peripheral enhancing hypodense fluid collections in the right lower quadrant, compatible with multifocal infected fluid collections/abscess. Percutaneous drainage was not recommended. In discussion with Dr. Hope of General Surgery, Surgery was also not recommended, patient should be treated with IV antibiotics. The hemodialysis catheter; however, was removed and patient tolerated this well. The patient is overall feeling well, reports his strength is back, is having loose stools, but states that it is tolerable. He does meet criteria for discharge to home. In discussion with Dr. Ventura, he will have 4 weeks of oral ciprofloxacin, vancomycin IV, sliding scale with dialysis. He will need a repeat CT scan in 3 weeks, which Dr. Hope states that she can order a followup as well as followup with Dr. Ventura in the clinic after treatment. No medication change in the patient's usual medications, which were continued in the hospital. PHYSICAL EXAMINATION: VITAL SIGNS: On day of discharge, his blood pressure 148/72, temperature 98.9, pulse 77, respirations 16, saturation 100% on room air. GENERAL: Awake, alert, responsive, in no apparent distress, able to speak in regular sentences. LUNGS: Clear to auscultation bilateral. HEART: Normal S1, S2, regular rate and rhythm, no audible murmurs. ABDOMEN: Soft with present bowel sounds. Mild tenderness to palpation in the right lower quadrant. No rebound or guarding. EXTREMITIES: No clubbing, cyanosis, or edema. CALLE FINDINGS AND TEST RESULTS: 1. CBC today 14.5, 9.2, 26.3, 366. Of note, white blood cell count was 27.4 on 06/25/2018. 2. Chemistry today 139, 4.1, 101, 17, 32, 6.71, 101. 3. Hepatitis screen was negative. 4. CT abdomen and pelvis performed yesterday showed the three peripheral enhancing hypodense fluid collections in the right lower quadrant mesenteric compatible with multifocal infected fluid collection/abscess. With respect to the adjacent bowel percutaneous abscess, drain is not recommended, scattered mesenteric small lymph nodes, questionable mass in the gastric cardia nonemergent, endoscopy is recommended. 5. Chest x-ray performed on 06/25/2018 negative. 6. Blood cultures 06/25/2018 x 2 negative. 7. Clostridium difficile testing negative. CODE STATUS: FULL. DISCHARGE DISPOSITION: Home. I reviewed with the patient this hospitalization, the new medications, the return for care precautions, and the importance of followup. He demonstrates understanding. Total time coordinating discharge is 40 minutes. FRANCISCO
--- NOTE | 2018-07-02 09:30 | PQF ---
JACKMAKAYLA FINLEY [id number] CLINICAL DOCUMENTATION CLARIFICATION FORM: POST DISCHARGE DATE: 07/02/2018 ATTN: Dr. Slater Please exercise your independent, professional judgment in responding to the clarification form. Clinical indicators are provided on the bottom of this form for your review Please check appropriate box(es): [ x ] Sepsis due to: ( ] Intra-abdominal abscess due to peritoneal dialysis catheter [ ] Intra-abdominal abscess only [ ] Other (please specify) [ x ] Unable to determine if dialysis catheter was the source [ ] Other diagnosis (please specify) [ ] Unable to determine In addition, please specify: Present on Admission (POA): [ ] Yes [ ] No [ ] Unable to determine For continuity of documentation, please document condition throughout progress notes and discharge summary. Thank You. CLINICAL INDICATORS - SIGNS / SYMPTOMS / LABS Per H&P: Sepsis with source possibly from bacterial peritonitis. Severe weakness. Per discharge summary: Sepsis secondary to intra-abdominal abscess in the right lower quadrant. CT of the abdomen/pelvis on 06/30 showed three discrete peripheral enhancing hypodense fluid collections in the right lower quadrant compatible with multifocal infected fluid collections/abscess. RISK FACTORS (per H&P/progress notes) Peritoneal dialysis catheter. TREATMENTS: (per procedure note/consultation/medications/microbiology) Removal of peritoneal dialysis catheter 06/27. . Blood cultures ID Consult IV Zosyn. IV Vancomycin. IV Fluids (This form is maintained as a part of the permanent medical record) 2014 [employer]. All Rights Reserved [email or web address] [phone] FRANCISCO
== END 2018-07-01 16:01 | disposition home or self-care (01) | DRG 853 ==
LOC: ERS 05:13 → ERHOLD 10:14 → T4-A 13:59
PROVIDERS: ADMIT Internal Medicine; ATTEND Internal Medicine
PROC: 5A1D70Z Performance of Urinary Filtration, Intermittent, Less than 6 Hours Per Day (ICD-10-PCS; 2018-06-26)
PROC: 0WPG03Z Removal of Infusion Device from Peritoneal Cavity, Open Approach (ICD-10-PCS; principal; 2018-06-27)
PROC: 5A1D70Z Performance of Urinary Filtration, Intermittent, Less than 6 Hours Per Day (ICD-10-PCS; 2018-06-29)
PROC: 5A1D70Z Performance of Urinary Filtration, Intermittent, Less than 6 Hours Per Day (ICD-10-PCS; 2018-07-01)
DX: A41.9 Sepsis, unspecified organism (principal); K65.1 Peritoneal abscess; N18.6 End stage renal disease; I12.0 Hypertensive chronic kidney disease with stage 5 chronic kidney disease or end stage renal disease; E11.22 Type 2 diabetes mellitus with diabetic chronic kidney disease; E11.42 Type 2 diabetes mellitus with diabetic polyneuropathy; E11.649 Type 2 diabetes mellitus with hypoglycemia without coma; D63.1 Anemia in chronic kidney disease; I25.10 Atherosclerotic heart disease of native coronary artery without angina pectoris; E78.5 Hyperlipidemia, unspecified; R94.5 Abnormal results of liver function studies; Z99.2 Dependence on renal dialysis; Z86.73 Personal history of transient ischemic attack (TIA), and cerebral infarction without residual deficits; Z87.891 Personal history of nicotine dependence; Z79.84 Long term (current) use of oral hypoglycemic drugs; Z79.82 Long term (current) use of aspirin; Z79.899 Other long term (current) drug therapy
CPT/HCPCS: 36415; 36416; 71045; 74177; 80048; 80053; 80074; 80202; 82550; 83605; 83735; 84100; 84443; 84484; 85025; 85060; 87040; 87324; 87449; 90935; 93005; 96361; 96365; 96367; A4216; G0257; G8978-GP-CJ; G8979-GP-CJ; G8980-GP-CJ; G8987-GO-CI; G8988-GO-CI; G8989-GO-CI; J1642; J1644; J2001; J2405; J2543; J2704; J3010; J3370; J7050; Q4081

== ENCOUNTER 2020-01-05 12:47 | Inpatient (IN) | payer MEDICARE, BC ==
[2020-01-05] MEDS ORDERED: Ketamine 50 MG/ML (10ML VIAL) ONE (12:53)
[2020-01-05] MEDS ORDERED: Rocuronium Bromide 10 MG/ML (10ML VIAL) ONE (12:54)
[2020-01-05] MEDS ORDERED: EPINEPHrine 1 MG/10 ML Abboject SYRINGE ONE (12:58)
[2020-01-05 13:27] LABS: Mean Corpuscular HGB CONC 31.9 g/dL (32.0-36.0); Mean Corpuscular Hemoglobin 32.3 pg (27.0-31.0); Mean Platelet Volume 12.5 fL (7.4-10.4); Platelet Count 222 thou/uL (130-400); RBC Distribution Width 13.6 % (11.5-14.5); Red Blood Cell (RBC) Count 2.78 mill/uL (4.70-6.10); White Blood Cell (WBC) Count 11.4 thou/uL (4.8-10.8)
[2020-01-05 13:33] LABS: PTT 32.1 SEC (22.9-36.1); Prothrombin Time 22.6 SEC (12.0-14.7)
[2020-01-05 13:40] LABS: Actual Bicarbonate (HCO3a) 12.7 mEq/L (22-28); Analyzer IN Cardio ER; Base Excess (BEa) -14.3 mEq/L (-2.0 to +3.0); CO2 Tension 33.5 mmHg (35.0-45.0); Calcium, Ionized 1.05 mmol/L (1.12-1.30); Carboxyhemoglobin (COHb) 0.3 gm% (0.0-3.0); Hemoglobin (Hb) 9.3 g/dL (14.0-18.0); O2 Tension (PaO2) 137.1 mmHg (> 70.0); Potassium - ABG Lab 6.04 mmol/L (3.70-5.30)
--- NOTE | 2020-01-05 13:41 | RAD ---
XR Chest 1 View Portable HISTORY: Respiratory failure, dyspnea COMPARISON: 06/25/2018 FINDINGS: There are changes of median sternotomy. Endotracheal tube tip at the level of the clavicula r heads. A left internal jugular central venous catheter is seen with tip in the projection of the SVC. The heart size normal. The lungs are expanded without lobar consolidation, pneumothoraces or lar ge effusions.
[2020-01-05 13:42] LABS: ALV-art Gradient 227.435 (0-20); Puncture Site RBA
[2020-01-05 13:49] LABS: Band 31 % (5-11); Large Platelets SLIGHT; Lymphocytes 7 % (21-51); MDiff Complete? YES; Macrocytosis SLIGHT = 6-15 cells (100X) (0-5/hpf); Monocytes 7 % (0-10); Neutrophil 55 % (42-75); Platelet Morphology Comment Appears Adequate; Polychromasia SLIGHT = 2-3 cells (100X) (0-2/hpf)
[2020-01-05 13:52] LABS: ALT (SGPT) 55 U/L (8-55); AST (SGOT) 94 U/L (5-34); Alkaline Phosphatase 64 U/L (40-110); Anion Gap 37 mmol/L (10-20); BUN (Urea Nitrogen) 123 mg/dL (8.4-25.7); Bilirubin, Total 0.6 mg/dL (0.2-1.2); Calc. Creatinine Clearance 0 mL/min (70-130); Calcium 8.3 mg/dL (7.8-10.44); Carbon Dioxide 11 mmol/L (23-31); Chloride 104 mmol/L (98-107); Estimated GFR-MDRD 5; Globulin 2.8 g/dL (2.4-3.5); Glucose 94 mg/dL (83-110); Potassium 6.3 mmol/L (3.5-5.1); Protein, Total 5.8 g/dL (5.8-8.1); Sodium 146 mmol/L (136-145)
[2020-01-05 14:15] LABS: CKMB 18.3 ng/mL (0-6.6)
--- NOTE | 2020-01-05 14:29 | CT ---
CT OF BRAIN PERFORMED WITHOUT CONTRAST ENHANCEMENT: Date: 01/05/2020 HISTORY: Altered mental status. COMPARISON: 12/24/2015 exam. FINDINGS: There is generalized ventricular and sulcal prominence. Encephalomalacia change to the left occipital lobe is again noted. There are no signs of intracerebral hemorrhage or extra-axial fluid collections . Mastoid air cells are clear. There is mucosal change within the ethmoid air cells. IMPRESSION: No acute intracranial abnormalities. Stable exam. POS: JOVANY
[2020-01-05] MEDS ORDERED: fentaNYL Citrate/PF 2,000 MCG in Sodium Chloride 0.9% 60 ML IV SCH ×2 (14:32→17:46)
--- NOTE | 2020-01-05 14:41 | RAD ---
Exam: 1 view abdomen HISTORY: Evaluate OG tube placement. FINDINGS: Orogastric tube appears to be in the left hemithorax/left hemiabdomen. Exact position canno t be confirmed on this exam. Additional imaging is recommended. IMPRESSION: Additional imaging is recommended. Results discussed with Dr. Jaeger on 01/05/2020 at 2:40 PM Code CR Transcribed Date/Time: 01/05/2020 2:42 PM
--- NOTE | 2020-01-05 15:34 | PDOC.HHP ---
Hospitalist HPI - History of Present Illness Altered Mental Status History of Present Illness: Mr. Engel is a 74 year old man with a PMHx of ESRD, T2DM, CAD, CVA, HTN & HLD who is brought to the ED by EMS with Altered Mental Status. EMS reports that the patient had been missing for several days before his family called the police to do a wellness check in the patient's home because his dialysis clinic reported that he had missed two days of dialysis. Police broke through the window and found the patient on the ground breathing but unresponsive and with vomit around his mouth and in his airway. At this time his GCS was 4 (open eyes) , BP was 85/60, HR was 150, Glucose was 40 and Temp was 95 F. The patient was intubated and underwent synchronized cardioversion with conversion to sinus rhythm with a pulse of 104. ED Course: The patient underwent placement of a central line. EKG showed peaked T waves. Troponin was 0.191. Labs were significant for WBC 11.4, Hb 9, Na 146, potassium 6.3, creatinine 10.58, BNP of 293,troponin of 0.191, CKMB 18.3, lactate of 7.6. ABG showed pH of 7.2, pCO2 of 33. The patient received sodium bicarb, calcium chloride and D50 which increased his blood glucose to 81. He was intubated with ketamine, rocuronium and given 1L normal saline. Nephrology was consulted who plan to do emergent dialysis. Chest X ray showed no acute disease. CT brain showed no acute abnormalities. Abdominal X ray for OG tube placement was inadequate. Hospitalist ROS - Review of Systems ROS unobtainable: due to endotracheal tube Hospitalist History - Past Medical History Source: old records Cardiac: reports: CAD, HTN Pulmonary: reports: CVA/TIA/stroke ROLLING ATTENDANT: reports: CVA Heme/Onc: reports: Anemia NOS Renal/: reports: Other (ESRD) Endocrine: reports: Diabetes (T2) - Past Surgical History Other Surgical History: Rotator cuff tear CABG Cholecystectomy - Family History Other Family History: Per chart review, father had DVT and thrombophlebitis - Social History Smoking Status: Former smoker (40 pack year history of smoking in the past) - Exam General - other findings: Unresponsive on ventilator. Off sedation Eye: PERRL. negative: anicteric sclera ENT: normocephalic atraumatic ENT - other findings: Vomit present around mouth Neck: supple, no JVD, no carotid bruit Heart: RRR, no murmur, no gallops, no rubs, normal peripheral pulses Respiratory: CTAB Respiratory - other findings: On ventilator Gastrointestinal: soft, non-tender, non-distended, no palpable masses Extremities: no cyanosis, no clubbing, no edema Skin: normal turgor, no lesions, no rashes Hospitalist Results - Labs Result Diagrams: 01/05/20 12:50 01/05/20 12:50 Lab results: WBC 11.4 thou/uL (4.8-10.8) H 01/05/20 12:50 Hgb 9.0 g/dL (14.0-18.0) L 01/05/20 12:50 Hct 28.1 % (42.0-52.0) L 01/05/20 12:50 MCV 101.0 fL (78.0-98.0) H 01/05/20 12:50 Plt Count 222 thou/uL (130-400) 01/05/20 12:50 Band Neuts % (Manual) 31 % (5-11) H 01/05/20 12:50 ABG pH 7.20 (7.35-7.45) L* 01/05/20 13:32 ABG pCO2 33.5 mmHg (35.0-45.0) L 01/05/20 13:32 ABG pO2 137.1 mmHg (> 70.0) H 01/05/20 13:32 Sodium 146 mmol/L (136-145) H 01/05/20 12:50 Potassium 6.3 mmol/L (3.5-5.1) H 01/05/20 12:50 Chloride 104 mmol/L (98-107) 01/05/20 12:50 Carbon Dioxide 11 mmol/L (23-31) L 01/05/20 12:50 BUN 123 mg/dL (8.4-25.7) H 01/05/20 12:50 Creatinine 10.58 mg/dL (0.7-1.3) H 01/05/20 12:50 Glucose 94 mg/dL (83-110) 01/05/20 12:50 Lactic Acid 7.6 mmol/L (0.5-2.2) H* 01/05/20 12:50 Calcium 8.3 mg/dL (7.8-10.44) 01/05/20 12:50 Total Bilirubin 0.6 mg/dL (0.2-1.2) 01/05/20 12:50 AST 94 U/L (5-34) H 01/05/20 12:50 ALT 55 U/L (8-55) 01/05/20 12:50 Alkaline Phosphatase 64 U/L (40-110) 01/05/20 12:50 CK-MB (CK-2) 18.3 ng/mL (0-6.6) H* 01/05/20 12:50 Troponin I 0.191 ng/mL (< 0.028) H 01/05/20 12:50 B-Natriuretic Peptide 293.8 pg/mL (0-100) H 01/05/20 12:50 Serum Total Protein 5.8 g/dL (5.8-8.1) 01/05/20 12:50 Albumin 3.0 g/dL (3.4-4.8) L 01/05/20 12:50 - EKG Interpretation EKG: EKG: SVT, inferior subendocardial injury, possibly anterolateral subendocardial injury Hospitalist H&P A/P - Plan Plan: Chest X ray: no acute disease CT brain: no acute disease Abdominal X ray: no acute disease This is a 74 year old male wit history of ESRD on dialysis who was found unresponsive at home after missing dialysis for a few days #Acute encephalopathy secondary to severe metabolic acidosis from missed dialysis #Respiratory acidosis #Hypernatremai #Hyperkalemia - s/p intubation. ABG showed PH 7.2, bicarb 10, pCo2 of 33. Patient is currently doing well with current vent settings. Will continue, repeat blood gas after dialysis - sodium was 146, likely hypervolemic from missed dialysis - potassium 6.3, s/p bicarbonate and calcium chloride. Will recheck BMP after dialysis - currently weaned off sedation #CAD s/p CABG #Hypertension - continue metoprolol - hold malodipine, losartan due to relative hypotension - continue statin #Type II diabetes - will do fingersticks q6 hours - insulin sliding scale Elevated troponin - likely from missed dialysis - will check ECHO - continue to trend troponin #Leukocytosis - WBC of 11, blood cultures sent - on IV zosyn empirically - chest Xray normal - will monitor #Macrocytic anemia - Hb 9, MCV 101, check B12/folate/TSH in the am Code status: assume full code DVT prophylaxis: heparin SC
[2020-01-05] MEDS ORDERED: Dextrose 5% in Water 1,000 ML IV PRN (15:43)
[2020-01-05] MEDS ORDERED: Dextrose 50% Abboject 50 ML SYRINGE SLOW IVP PRN (15:43)
[2020-01-05 16:47] LABS: Lactic Acid 1.7 mmol/L (0.5-2.2)
[2020-01-05] MEDS ORDERED: Ampicillin/Sulbactam 3 GM in Sodium Chloride 0.9% 100 ML IVPB SCH ×2 (17:00→22:00)
[2020-01-05 17:14] LABS: Troponin I 0.367 ng/mL (< 0.028)
[2020-01-05] MEDS ORDERED: Ventilator Sedation Protocol 1 EACH FS SCH (17:30)
[2020-01-05] MEDS ORDERED: CCU Electrolyte Replacement 1 EACH IVPB ONE (17:30)
[2020-01-05] MEDS ORDERED: Propofol BOLUS 1,000 MG/100 ML VIAL IV PRN (17:46)
[2020-01-05] MEDS ORDERED: Lorazepam 2 MG/ML VIAL SLOW IVP PRN (17:46)
[2020-01-05] MEDS ORDERED: Fentanyl BOLUS 250 ML IVPB PRN (17:46)
[2020-01-05] MEDS ORDERED: Morphine 2 MG/ML SYRINGE SLOW IVP PRN ×2 (17:46→18:27)
[2020-01-05] MEDS ORDERED: DISCONTINUE PREVIOUS NARCOTIC PAIN MEDICATIONS AND BENZODIAZEPINES FS SCH (17:46)
[2020-01-05] MEDS ORDERED: Propofol 1,000 MG/100 ML VIAL IV PRN (17:46)
--- NOTE | 2020-01-05 17:48 | CON ---
DATE OF CONSULTATION: 01/05/2020 CONSULTING PHYSICIAN: Dr. Jaeger. REASON FOR CONSULTATION: End-stage renal disease, altered mentation, hyperkalemia. REASON FOR ADMISSION: Found down. HISTORY OF PRESENT ILLNESS: This is a 74-year-old male with history of end-stage renal disease, type-2 diabetes, coronary artery disease, CVA, came to the hospital with altered mentation. The patient was actually found down at home. The patient missed dialysis for few days and had a wellness check and police found him down at his home and vomitus around and was brought to the hospital. The patient is currently in ICU, intubated. He was found to have potassium of 6.3, BUN of 123, unresponsive, and Nephrology consulted. The patient does get regular dialysis at [facility] under the care of Dr. Escudero from [facility], and since they are not covering the [facility], we were called to arrange his dialysis and manage his end-stage renal disease. PAST MEDICAL HISTORY: Positive for; 1. End-stage renal disease, on hemodialysis. 2. Type-2 diabetes. 3. Coronary artery disease. 4. CVA. 5. Hypertension. 6. Hyperlipidemia. PAST SURGICAL HISTORY: Dialysis access placement. HOME MEDICATIONS: Reviewed. ALLERGIES: NO KNOWN DRUG ALLERGIES. SOCIAL HISTORY: Not available. FAMILY HISTORY: Not available. REVIEW OF SYSTEMS: Could not be obtained as he is intubated. PHYSICAL EXAMINATION: GENERAL: This is a well-built male, seen in ICU, intubated. VITAL SIGNS: Temperature 95.5, pulse 89, respiratory rate 18, blood pressure 119/50. HEENT: Intubated. CV: S1, S2 heard. RESPIRATORY: Clear. GI: Abdomen is soft. MUSCULOSKELETAL: No edema. DERMATOLOGIC: No skin rash. NEUROLOGIC: Intubated. LABORATORY DATA: Hemoglobin is 9.0. Potassium is 6.3, BUN is 123, creatinine is 10.5. ASSESSMENT AND PLAN: 1. End-stage renal disease, on hemodialysis. Plan is to do emergent dialysis for hyperkalemia, severe acidosis, and severe hyperkalemia. 2. Hypernatremia. 3. Anemia. 4. Leukocytosis. 5. Acute hypoxic respiratory failure, intubated. 6. Hypoalbuminemia. 7. Hypertension. 8. Lactic acidosis, we will monitor. Plan is to do emergent dialysis, dialysis nurse notified. We will use 2K bath and run for 4 hours. Plan to have emergent dialysis. Thank you for the consult. We will follow the case along with you. Job ID: [id number]
[2020-01-05] MEDS ORDERED: Digoxin 0.5 MG/2 ML AMP SLOW IVP SCH (20:00)
[2020-01-05] MEDS ORDERED: Amiodarone 450 MG, Admixture Fee 1 EACH in Dextrose 5% in Water 250 ML IVPB SCH (20:00)
[2020-01-05] MEDS: Piperacillin/Tazobactam 2.25 GM in Sodium Chloride 0.9% 100 ML IVPB SCH (21:29)
[2020-01-05] MEDS: Atorvastatin Calcium 10 MG TAB PO SCH (21:40)
[2020-01-05] MEDS: Heparin 5,000 UNITS/ML VIAL SC SCH (21:40)
[2020-01-05] MEDS: Metoprolol Tartrate 50 MG TAB PO SCH (21:40)
[2020-01-05] MEDS: Amlodipine 10 MG TAB PO SCH (21:40)
[2020-01-05] MEDS: Doxazosin 2 MG TAB PO SCH (21:41)
[2020-01-05 21:45] LABS: CKMB 32.3 ng/mL (0-6.6)
[2020-01-06] MEDS ORDERED: Sodium Chloride 0.9% 500 ML IV SCH (01:30)
[2020-01-06] MEDS: Piperacillin/Tazobactam 2.25 GM in Sodium Chloride 0.9% 100 ML IVPB SCH ×3 (03:07→20:02)
[2020-01-06 03:53] LABS: Anion Gap 28 mmol/L (10-20); BUN (Urea Nitrogen) 79 mg/dL (8.4-25.7); Calc. Creatinine Clearance 10 mL/min (70-130); Calcium 8.1 mg/dL (7.8-10.44); Carbon Dioxide 19 mmol/L (23-31); Chloride 99 mmol/L (98-107); Estimated GFR-MDRD 8; Glucose 99 mg/dL (83-110); Potassium 5.5 mmol/L (3.5-5.1); Sodium 140 mmol/L (136-145)
[2020-01-06 06:47] LABS: Actual Bicarbonate (HCO3a) 18.6 mEq/L (22-28); Base Excess (BEa) -5.1 mEq/L (-2.0 to +3.0); CO2 Tension 29.8 mmHg (35.0-45.0); Calcium, Ionized 0.99 mmol/L (1.12-1.30); Hemoglobin (Hb) 10.8 g/dL (14.0-18.0); O2 Tension (PaO2) 72.9 mmHg (> 70.0); Potassium - ABG Lab 5.47 mmol/L (3.70-5.30); pH, Arterial 7.41 (7.35-7.45)
[2020-01-06 06:56] LABS: Puncture Site RBRACH
[2020-01-06] MEDS: Gemfibrozil 600 MG TAB PO SCH ×2 (08:40→17:10)
[2020-01-06] MEDS: Calcium Acetate 667 MG CAP PO SCH ×3 (08:40→17:10)
--- NOTE | 2020-01-06 09:01 | PRG ---
DATE OF SERVICE: 01/06/2020 SUBJECTIVE: The patient was seen and examined in ICU, intubated, and blood pressure is better. OBJECTIVE: GENERAL: This is a well-built male, intubated, seen in ICU. VITAL SIGNS: Temperature 98.0, pulse 64, respiratory rate 19, and blood pressure 119/35. HEENT: Intubated. CARDIOVASCULAR: S1 and S2 heard. RESPIRATORY: Clear anteriorly. GASTROINTESTINAL: Abdomen is soft. MUSCULOSKELETAL: No edema. DERMATOLOGIC: No skin rash. NEUROLOGICAL: Intubated. LABORATORY DATA: Hemoglobin 9.0. Potassium 5.5, BUN is 79, and creatinine is 7.01. ASSESSMENT AND PLAN: 1. End-stage renal disease, had a partial dialysis yesterday and could not tolerate very well due to tachycardia. Seems to be in much stable condition today. Blood pressure is also stable. Plan is to have another 3 hours of dialysis with low blood flow rate of 300 mL/minute. We will attempt not to have any ultrafiltration given the previous experience. We will continue to follow. We will also try to use albumin if he have any hemodynamic instability during dialysis. 2. Hypernatremia, better. 3. Hyperkalemia, severe, but is much better. 4. Anemia. 5. Leukocytosis. 6. Acute hypoxic respiratory failure, intubated. 7. Hypoalbuminemia. 8. Hypertension. 9. Lactic acidosis. Overall seems to be stable to have dialysis today and given hyperkalemia, plan to have a gentle dialysis today. We will follow if not able to have ultrafiltration. Job ID: [id number]
[2020-01-06] MEDS: Sevelamer Carbonate 800 MG TAB PO SCH ×3 (09:17→17:29)
[2020-01-06] MEDS: Aspirin 81 mg Enteric Coated Tablet PO SCH (09:19)
[2020-01-06] MEDS: Metoprolol Tartrate 50 MG TAB PO SCH ×2 (09:19→20:53)
[2020-01-06] MEDS: Heparin 5,000 UNITS/ML VIAL SC SCH ×3 (09:19→20:03)
[2020-01-06] MEDS: Famotidine/PF 20 mg/2ml Vial SLOW IVP SCH (09:19)
--- NOTE | 2020-01-06 10:07 | RAD ---
PORTABLE CHEST: Date: 01/06/2020 PROVIDED CLINICAL HISTORY: Respiratory insufficiency. FINDINGS: Comparison with 01/05/2020. There has been interval removal of the external defibrillator pad overlying the right upper chest. Th ere is parenchymal opacity in the right upper lung zone, now apparent. Lungs appear otherwise clear. Additional significant interval change with respect to the prior examination is not apparent. IMPRESSION: Right upper lung zone parenchymal opacity is now apparent. Findings may reflect pneumonia. Other etio logies are not excluded. Follow-up is recommended. POS: OFF
--- NOTE | 2020-01-06 10:57 | PDOC.HOSPP ---
- Subjective Encounter Date: 01/06/20 Encounter Time: 10:54 Subjective: THe patient is still on the ventilator. He opens his eyes to name and squeezed on left hand, but got fatigued on right hand. - Objective Vital Signs & Weight: Vital Signs (12 hours) Temp Pulse Resp BP Pulse Ox 01/06/20 10:00 23 H 01/06/20 08:00 98.7 F 23 H 100 01/06/20 07:24 64 01/06/20 06:23 72 01/06/20 06:00 23 H 01/06/20 04:00 98.0 F 23 H 01/06/20 02:33 72 83/41 L 01/06/20 02:00 23 H 01/06/20 00:00 98.2 F 24 H Weight Weight 154 lb 5.177 oz Most Recent Monitor Data Heart Rate from ECG 62 NIBP 112/43 NIBP BP-Mean 66 Respiration from ECG 23 SpO2 100 I&O: 01/05/20 01/06/20 01/07/20 06:59 06:59 06:59 Intake Total 793.5 629.1 Output Total 475 30 Balance 318.5 599.1 Result Diagrams: 01/06/20 11:15 01/06/20 03:00 Additional Labs: Accuchecks 01/06/20 01/06/20 01/05/20 09:44 01:48 20:31 POC Glucose 104 89 106 01/05/20 01/05/20 17:21 12:55 POC Glucose 110 81 Hospitalist ROS - Review of Systems ROS unobtainable: due to endotracheal tube - Medication Medications: Active Medications Generic Name Dose Route Start Last Admin Trade Name Lashonda PRN Reason Stop Dose Admin Albumin Human 12.5 gm 01/06/20 09:00 01/06/20 09:16 Albumin 5% IVPB 01/07/20 12:00 12.5 gm NOW LESTER Administration Amlodipine Besylate 10 mg 01/05/20 21:00 01/05/20 21:40 Norvasc PO 10 mg HS LESTER Administration Aspirin 81 mg 01/06/20 09:00 01/06/20 09:19 Ecotrin PO 81 mg DAILY LESTER Administration Atorvastatin Calcium 10 mg 01/05/20 21:00 01/05/20 21:40 Lipitor PO 10 mg HS LESTER Administration Calcium Acetate 667 mg 01/06/20 08:00 01/06/20 08:40 Phoslo PO 667 mg TID-WM LESTER Administration Doxazosin Mesylate 2 mg 01/05/20 21:00 01/05/20 21:41 Cardura PO 2 mg HS LESTER Administration Famotidine 20 mg 01/06/20 09:00 01/06/20 09:19 Pepcid SLOW IVP 20 mg DAILY LESTER Administration Gemfibrozil 600 mg 01/06/20 07:30 01/06/20 08:40 Lopid PO 600 mg BID-AC LESTER Administration Heparin Sodium (Porcine) 5,000 units 01/05/20 21:00 01/06/20 09:19 Heparin SC 5,000 units TID LESTER Administration Piperacillin Sod/Tazobactam 100 mls @ 200 mls/hr 01/05/20 20:00 01/06/20 03: 07 Sod 2.25 gm/ Sodium Chloride IVPB 100 mls 0400,1200,2000 LESTER Administration Metoprolol Tartrate 50 mg 01/05/20 21:00 01/06/20 09:19 Lopressor PO Not Given BID LESTER Sevelamer Carbonate 800 mg 01/06/20 08:00 01/06/20 09:17 Renvela PO Not Given TID-WM LESTER - Exam General - other findings: intubated, not responsive Eye: PERRL ENT: normocephalic atraumatic, no oropharyngeal lesions Neck: supple, no JVD Heart: RRR, no murmur, no gallops, no rubs Respiratory: CTAB, no wheezes, no rales, no ronchi Gastrointestinal: soft, non-tender, non-distended, normal bowel sounds Extremities: no cyanosis, no clubbing, no edema Skin: normal turgor, no lesions, no rashes Neurological: cranial nerve grossly intact, no focal deficits, no new deficit Neurological - other findings: patient squeezes on left hand, but was weak on right due to fatigue. Hosp A/P - Plan This is a 74 year old male with history of ESRD on dialysis who was found unresponsive at home after missing dialysis for a few days #Acute encephalopathy secondary to severe metabolic acidosis from missed dialysis - improving #Respiratory acidosis - resolved #Hypernatremia - resolved #Hyperkalemia - s/p intubation. ABG showed PH 7.2, bicarb 10, pCo2 of 33. Repeat blood gas shows improvement - hypernatremia resolved with dialysis - potassium down to 5.5, plan to do another dialysis session today without ultrafiltration. Repeat BMP after #CAD s/p CABG #Hypertension - continue metoprolol and amlodipine - hold a losartan due to relative hypotension - continue statin #Type II diabetes - fingersticks q6 hours - insulin sliding scale Elevated troponin - likely from missed dialysis, type II NSTEMI - will check ECHO - troponin are still trending up and CKMB elevated - cardiology is consulted, continue supportive care #Leukocytosis - WBC of 11, blood cultures are negative - on IV zosyn empirically with improvement . Charles - chest Xray normal - will monitor #Macrocytic anemia - Hb 9, MCV 101, B12 normal - check folate in am and TSH
[2020-01-06 11:29] LABS: Hemoglobin 8.6 g/dL (14.0-18.0); Mean Corpuscular HGB CONC 33.4 g/dL (32.0-36.0); Mean Corpuscular Hemoglobin 32.7 pg (27.0-31.0); Mean Corpuscular Volume 98.1 fL (78.0-98.0); Mean Platelet Volume 11.1 fL (7.4-10.4); Platelet Count 168 thou/uL (130-400); RBC Distribution Width 13.5 % (11.5-14.5); Red Blood Cell (RBC) Count 2.62 mill/uL (4.70-6.10); White Blood Cell (WBC) Count 5.8 thou/uL (4.8-10.8)
[2020-01-06] MEDS ORDERED: Refresh Lacri-lube Opth Oint 7 GM TUBE EA EYE PRN (12:22)
[2020-01-06 12:31] LABS: CKMB 23.7 ng/mL (0-6.6)
[2020-01-06 12:32] LABS: HBSAg Index 0.23 S/CO (0-0.99); Hep B Surf Ag Non-Reactive S/CO (NonReactive)
--- NOTE | 2020-01-06 15:48 | CON ---
DATE OF CONSULTATION: 01/06/2020 REASON FOR CONSULTATION: Elevated troponin. HISTORY OF PRESENT ILLNESS: Mr. Keller is a 74-year-old gentleman who was found down while at home. The history is not obtainable. He has no and no children. History is obtained from his brother and sister who both live out of town. Apparently, he did undergo dialysis on Thursday with missed dialysis on Thursday and . I felt he was likely down since that time. Police were summoned. The patient was once found. He is currently not responsive to voice or following commands. PAST MEDICAL HISTORY: Diabetes mellitus, CVA, hypertension, end-stage renal disease. ALLERGIES: NONE. SOCIAL HISTORY: Unobtainable. CURRENT MEDICATIONS: 1. Losartan. 2. Amlodipine. 3. Hydralazine. 4. Metoprolol. 5. Zocor. 6. Renvela. 7. Imdur. 8. Gemfibrozil. 9. Glipizide. 10. PhosLo. 11. Cardura. 12. Aspirin. REVIEW OF SYSTEMS: Unobtainable. PHYSICAL EXAMINATION: GENERAL: The patient is intubated and sedated. Not following commands. VITAL SIGNS: Blood pressure 122/34, pulse 68, and respirations 20. NEUROLOGIC: The patient is alert and oriented x3 with no focal neurologic deficits. HEENT: Sclerae without icterus. Mouth has moist mucous membranes with normal pallor. NECK: No JVD. Carotid upstroke brisk. No bruits bilaterally. LUNGS: Clear to auscultation with unlabored respirations. BACK: No scoliosis or kyphosis. CARDIAC: Regular rate and rhythm with normal S1 and S2. No S3 or S4 noted. No significant rubs, murmurs, thrills, or gallops noted throughout the precordium. PMI is not displaced. There is no parasternal heave. ABDOMEN: Soft, nontender, nondistended. No peritoneal signs present. No hepatosplenomegaly. No abnormal striae. EXTREMITIES: 2+ femoral and 2+ dorsalis pedis pulses. No cyanosis, clubbing, or edema. SKIN: No gross abnormalities. PERTINENT LABORATORY DATA: Hemoglobin 8.6, creatinine 7.0, troponin 2.1, CK-MB of 23. EKG, no acute ST-T wave changes noted. IMPRESSION: 1. Elevated troponin. 2. [id number] arrest. 3. Respiratory failure. 4. End-stage renal disease. 5. Hyperkalemia. RECOMMENDATIONS: Details of the recent demise are unknown. At this point, we will continue current course. He is currently on antibiotic therapy. He is undergoing dialysis. He likely has underlying coronary artery disease. Elevated troponin, likely type 2 PA from recent arrest. At this point, we will continue with conservative therapy. Discussed this with the family and they understand. May consider other options if Mr. Keller does improve neurologically, but otherwise we will treat conservatively. Continue heparin over 24 hours. Job ID: [id number]
[2020-01-06] MEDS: SYSTANE 3.5 GM TUBE EA EYE PRN (19:11)
[2020-01-06 19:15] LABS: Anion Gap 22 mmol/L (10-20); BUN (Urea Nitrogen) 41 mg/dL (8.4-25.7); Calc. Creatinine Clearance 16 mL/min (70-130); Calcium 8.3 mg/dL (7.8-10.44); Carbon Dioxide 23 mmol/L (23-31); Chloride 101 mmol/L (98-107); Estimated GFR-MDRD 15; Glucose 82 mg/dL (83-110); Potassium 4.5 mmol/L (3.5-5.1); Sodium 141 mmol/L (136-145)
[2020-01-06] MEDS: Atorvastatin Calcium 10 MG TAB PO SCH (20:02)
[2020-01-06] MEDS: Amlodipine 10 MG TAB PO SCH (20:53)
[2020-01-06] MEDS: Doxazosin 2 MG TAB PO SCH (20:53)
[2020-01-07] MEDS: Piperacillin/Tazobactam 2.25 GM in Sodium Chloride 0.9% 100 ML IVPB SCH ×3 (03:55→21:04)
[2020-01-07 04:11] LABS: Hemoglobin 8.4 g/dL (14.0-18.0); Mean Corpuscular HGB CONC 33.7 g/dL (32.0-36.0); Mean Corpuscular Hemoglobin 33.4 pg (27.0-31.0); Mean Platelet Volume 11.6 fL (7.4-10.4); Platelet Count 173 thou/uL (130-400); RBC Distribution Width 13.5 % (11.5-14.5); Red Blood Cell (RBC) Count 2.53 mill/uL (4.70-6.10); White Blood Cell (WBC) Count 7.1 thou/uL (4.8-10.8)
[2020-01-07 07:05] LABS: Actual Bicarbonate (HCO3a) 20.3 mEq/L (22-28); Base Excess (BEa) -3.3 mEq/L (-2.0 to +3.0); Calcium, Ionized 1.08 mmol/L (1.12-1.30); Carboxyhemoglobin (COHb) 1.5 gm% (0.0-3.0); Hemoglobin (Hb) 8.4 g/dL (14.0-18.0); O2 Tension (PaO2) 83.4 mmHg (> 70.0); Potassium - ABG Lab 4.38 mmol/L (3.70-5.30); pH, Arterial 7.44 (7.35-7.45)
[2020-01-07 07:07] LABS: Puncture Site LB
[2020-01-07] MEDS: Gemfibrozil 600 MG TAB PO SCH ×2 (08:28→16:13)
[2020-01-07] MEDS: SYSTANE 3.5 GM TUBE EA EYE PRN (08:29)
[2020-01-07] MEDS: Heparin 5,000 UNITS/ML VIAL SC SCH ×3 (08:32→21:04)
[2020-01-07] MEDS: Famotidine/PF 20 mg/2ml Vial SLOW IVP SCH (08:32)
[2020-01-07] MEDS: Aspirin 81 mg Enteric Coated Tablet PO SCH (08:33)
[2020-01-07] MEDS: Calcium Acetate 667 MG CAP PO SCH ×3 (08:33→16:13)
[2020-01-07] MEDS: Sevelamer Carbonate 800 MG TAB PO SCH ×3 (08:33→17:08)
[2020-01-07] MEDS: Metoprolol Tartrate 50 MG TAB PO SCH ×2 (08:34→21:06)
[2020-01-07 11:37] LABS: #Lymphocytes 0.6 thou/uL (1.20-3.40); #Monocytes 0.9 thou/uL (0.11-0.59); #Neutrophils 6.4 thou/uL (1.40-6.50); %Eosinophils 0.3 % (0.0-10.0); %Monocytes 10.9 % (0.0-10.0); %Neutrophils 80.8 % (42.0-75.0); Hemoglobin 8.4 g/dL (14.0-18.0); Mean Corpuscular HGB CONC 32.9 g/dL (32.0-36.0); Mean Corpuscular Hemoglobin 33.3 pg (27.0-31.0); Mean Platelet Volume 11.7 fL (7.4-10.4); Platelet Count 166 thou/uL (130-400); RBC Distribution Width 13.5 % (11.5-14.5); Red Blood Cell (RBC) Count 2.52 mill/uL (4.70-6.10); White Blood Cell (WBC) Count 7.9 thou/uL (4.8-10.8)
[2020-01-07 11:53] LABS: Anion Gap 23 mmol/L (10-20); BUN (Urea Nitrogen) 58 mg/dL (8.4-25.7); Calc. Creatinine Clearance 13 mL/min (70-130); Calcium 8.4 mg/dL (7.8-10.44); Carbon Dioxide 20 mmol/L (23-31); Chloride 101 mmol/L (98-107); Estimated GFR-MDRD 11; Glucose 85 mg/dL (83-110); Potassium 4.6 mmol/L (3.5-5.1); Sodium 139 mmol/L (136-145)
--- NOTE | 2020-01-07 12:44 | PDOC.CPN ---
- Subjective Date: 01/07/20 Time: 12:44 Interval history: Still intubated. Following commands this am - Objective Allergies/Adverse Reactions: Allergies Allergy/AdvReac Type Severity Reaction Status Date / Time No Known Allergies Allergy Verified 06/25/18 15:47 Visit Medications: Current Medications Amlodipine Besylate (Norvasc) 10 mg PO HS [facility] Last Admin: 01/06/20 20:53 Dose: Not Given Aspirin (Ecotrin) 81 mg PO DAILY [facility] Last Admin: 01/07/20 08:33 Dose: 81 mg Atorvastatin Calcium (Lipitor) 10 mg PO HS [facility] Last Admin: 01/06/20 20:02 Dose: 10 mg Calcium Acetate (Phoslo) 667 mg PO TID-[facility] Last Admin: 01/07/20 08:33 Dose: 667 mg Dextrose/Water (Dextrose 50%) 25 gm SLOW IVP PRN PRN PRN Reason: Hypoglycemia Doxazosin Mesylate (Cardura) 2 mg PO [facility] Last Admin: 01/06/20 20:53 Dose: Not Given Famotidine (Pepcid) 20 mg SLOW IVP DAILY [facility] Last Admin: 01/07/20 08:32 Dose: 20 mg Gemfibrozil (Lopid) 600 mg PO BID-AC [facility] Last Admin: 01/07/20 08:28 Dose: 600 mg Glucagon (Glucagon) 1 mg IM PRN PRN PRN Reason: Hypoglycemia Heparin Sodium (Porcine) (Heparin) 5,000 units SC TID [facility] Last Admin: 01/07/20 08:32 Dose: 5,000 units Dextrose/Water (D5w) 1,000 mls @ 0 mls/hr IV .Q0M PRN PRN Reason: Hypoglycemia Fentanyl Citrate 2,000 mcg/ (Sodium Chloride) 100 mls @ 0 mls/hr IV INF [facility]; Protocol Stop: 02/04/20 17:46 Fentanyl Citrate (Fentanyl Bolus) 250 mls @ 0 mls/hr IVPB PRN PRN PRN Reason: Breakthrough pain/agitation Stop: 02/04/20 17:46 Piperacillin Sod/Tazobactam (Sod 2.25 gm/ Sodium Chloride) 100 mls @ 200 mls/ hr IVPB 0400,1200,2000 [facility] Last Admin: 01/07/20 03:55 Dose: 100 mls Amiodarone HCl 450 mg/Miscellaneous Medication 1 each/ Dextrose/Water 259 mls @ 0 mls/hr IVPB INF [facility]; Protocol Insulin Human Lispro (Humalog) 0 units SC .MILD SLIDING SCALE PRN PRN Reason: Mild Correctional Scale Lorazepam (Ativan) 2 mg SLOW IVP Q1H PRN PRN Reason: Breakthrough agitation Stop: 02/04/20 17:46 Metoprolol Tartrate (Lopressor) 50 mg PO BID [facility] Last Admin: 01/07/20 08:34 Dose: Not Given Mineral Oil/White Petrolatum (Systane Nighttime Eye Ointment) 0 gm EA EYE Q6H PRN PRN Reason: Dry Eyes Last Admin: 01/07/20 08:29 Dose: 1 each Morphine Sulfate (Morphine) 2 mg SLOW IVP Q4H PRN PRN Reason: Moderate Pain (4-6) Discontinue Previous Narcotic Pain Medications And Benzodiazepines 1 each FS .ONE [facility] Stop: 02/04/20 17:46 Propofol (Diprivan) 1,000 mg IV INF PRN; Protocol PRN Reason: TO ACHIEVE GOAL RASS Stop: 02/04/20 17:46 Propofol (Diprivan Bolus) 20 mg IV Q5MIN PRN PRN Reason: BREAKTHROUGH AGITATION Stop: 02/04/20 17:46 Sevelamer Carbonate (Renvela) 800 mg PO TID-WM [facility] Last Admin: 01/07/20 08:33 Dose: Not Given Sodium Chloride (Flush - Normal Saline) 10 ml IVF PRN PRN PRN Reason: Saline Flush Vital Signs & Weight: Vital Signs Temp Pulse Resp BP Pulse Ox 01/07/20 10:00 20 01/07/20 07:43 100 01/07/20 07:39 18 01/07/20 07:00 98.9 F 01/07/20 06:46 69 130/42 L 01/07/20 06:00 20 01/07/20 04:00 98.3 F 17 01/07/20 02:25 70 117/48 L 01/07/20 02:00 16 01/07/20 00:00 98.6 F 17 Admit Weight 165 lb 12.602 oz Weight 157 lb 6.561 oz - Physical Exam General: no apparent distress Neck: no masses Cardiac: no murmur, regular rate, regular rhythm Lungs: normal exam Abdomen: soft Musculoskeletal: no pain - Labs Result Diagrams: 01/07/20 11:16 01/07/20 11:16 Troponin/CKMB CK-MB (CK-2) 23.7 ng/mL (0-6.6) H* 01/06/20 11:15 Troponin I 2.139 ng/mL (< 0.028) H* 01/06/20 11:15 - Assessment/Plan Assessment/Plan: Respiraotry arrest ESRD Hyperkalemia Neurologically improving slowly No new CV changes K level normalized after dialysis Elevated troponin secondary to demand ishcemia Will follow
--- NOTE | 2020-01-07 13:12 | PRG ---
DATE OF SERVICE: 01/07/2020 SUBJECTIVE: Patient was seen and examined in ICU, intubated. OBJECTIVE: GENERAL: This is a well-built male, intubated. VITAL SIGNS: Temperature 95. Pulse 82. Respiratory rate 18. Blood pressure 117/56. HEENT: Intubated. CARDIOVASCULAR: S1, S2 heard. RESPIRATORY: Clear. GASTROINTESTINAL: Abdomen is soft. MUSCULOSKELETAL: No edema. DERMATOLOGIC: No skin rash. NEUROLOGIC: Intubated. LABORATORY DATA: Hemoglobin is 8.4, potassium 4.6, BUN is 58, and creatinine is 5.9. ASSESSMENT AND PLAN: 1. End-stage renal disease. Plan to have dialysis today. 2. Hypernatremia. 3. Hyperkalemia, better. 4. Leukocytosis. 5. Acute hypoxic respiratory failure, intubated. 6. Hypoalbuminemia. 7. Hypertension. 8. Lactic acidosis. 9. Plan to have dialysis today as tolerated. We will plan for 3 hours today and then continue TTS as tolerated. Limit fluid intake. Job ID: [id number]
--- NOTE | 2020-01-07 14:51 | PDOC.HOSPP ---
- Subjective Encounter Date: 01/07/20 Subjective: Non-verbal. Intubated. Discussed with nurse and patient's brother. He has been increasingly awake. Following commands. - Objective Vital Signs & Weight: Vital Signs (12 hours) Temp Pulse Resp BP Pulse Ox 01/07/20 13:48 86 108/53 L 01/07/20 12:00 98.5 F 14 01/07/20 10:00 20 01/07/20 07:43 100 01/07/20 07:39 18 01/07/20 07:00 98.9 F 01/07/20 06:46 69 130/42 L 01/07/20 06:00 20 01/07/20 04:00 98.3 F 17 Weight Admit Weight 165 lb 12.602 oz Weight 157 lb 6.561 oz Most Recent Monitor Data Heart Rate from ECG 68 NIBP 117/56 NIBP BP-Mean 76 Respiration from ECG 0 SpO2 99 I&O: 01/06/20 01/07/20 01/08/20 06:59 06:59 06:59 Intake Total 793.5 3349.9 440 Output Total 475 70 10 Balance 318.5 3279.9 430 Result Diagrams: 01/07/20 11:16 01/07/20 11:16 Additional Labs: Accuchecks 01/07/20 01/07/20 01/07/20 11:25 08:08 03:57 POC Glucose 92 84 78 01/07/20 01/06/20 01/06/20 00:10 20:03 17:28 POC Glucose 85 78 93 Hospitalist ROS - Medication Medications: Active Medications Generic Name Dose Route Start Last Admin Trade Name Lashonda PRN Reason Stop Dose Admin Amlodipine Besylate 10 mg 01/05/20 21:00 01/06/20 20:53 Norvasc PO Not Given HS [facility] Aspirin 81 mg 01/06/20 09:00 01/07/20 08:33 Ecotrin PO 81 mg DAILY [facility] Administration Atorvastatin Calcium 10 mg 01/05/20 21:00 01/06/20 20:02 Lipitor PO 10 mg HS [facility] Administration Calcium Acetate 667 mg 01/06/20 08:00 01/07/20 11:28 Phoslo PO 667 mg TID-WM [facility] Administration Doxazosin Mesylate 2 mg 01/05/20 21:00 01/06/20 20:53 Cardura PO Not Given HS [facility] Famotidine 20 mg 01/06/20 09:00 01/07/20 08:32 Pepcid SLOW IVP 20 mg DAILY [facility] Administration Gemfibrozil 600 mg 01/06/20 07:30 01/07/20 08:28 Lopid PO 600 mg BID-AC [facility] Administration Heparin Sodium (Porcine) 5,000 units 01/05/20 21:00 01/07/20 08:32 Heparin SC 5,000 units TID [facility] Administration Piperacillin Sod/Tazobactam 100 mls @ 200 mls/hr 01/05/20 20:00 01/07/20 11: 26 Sod 2.25 gm/ Sodium Chloride IVPB 100 mls 0400,1200,2000 [facility] Administration Metoprolol Tartrate 50 mg 01/05/20 21:00 01/07/20 08:34 Lopressor PO Not Given BID [facility] Mineral Oil/White Petrolatum 0 gm 01/06/20 15:30 01/07/20 08:29 Systane Nighttime Eye Ointment EA EYE 1 each Q6H PRN Administration Dry Eyes Sevelamer Carbonate 800 mg 01/06/20 08:00 01/07/20 11:27 Renvela PO Not Given TID-WM [facility] - Exam General Appearance: NAD, awake alert Heart: RRR, no murmur, no gallops, no rubs, normal peripheral pulses, II/IV Respiratory: CTAB, no wheezes, no rales, no ronchi, normal chest expansion, no tachypnea, normal percussion Gastrointestinal: soft, non-tender, non-distended, normal bowel sounds, no palpable masses, no hepatomegaly, no splenomegaly, no bruit Skin: normal turgor Hosp A/P (1) Acute metabolic encephalopathy Code(s): G93.41 - METABOLIC ENCEPHALOPATHY Status: Acute (2) Acute respiratory failure with hypoxia Code(s): J96.01 - ACUTE RESPIRATORY FAILURE WITH HYPOXIA Status: Acute (3) Hyperkalemia Code(s): E87.5 - HYPERKALEMIA Status: Acute (4) Metabolic acidosis Code(s): E87.2 - ACIDOSIS Status: Acute (5) Coronary artery disease Code(s): I25.10 - ATHSCL HEART DISEASE OF [place] CORONARY ARTERY W/O ANG PCTRS Status: Chronic (6) End stage renal disease on dialysis Code(s): N18.6 - END STAGE RENAL DISEASE; Z99.2 - DEPENDENCE ON RENAL DIALYSIS Status: Chronic (7) Hypertension Code(s): I10 - ESSENTIAL (PRIMARY) HYPERTENSION Status: Chronic (8) Anemia Code(s): D64.9 - ANEMIA, UNSPECIFIED Status: Chronic Qualifiers: Anemia type: due to chronic kidney disease Chronic kidney disease stage: on chronic dialysis Qualified Code(s): N18.6 - End stage renal disease; D63.1 - Anemia in chronic kidney disease; D63.1 - Anemia in chronic kidney disease; Z99.2 - Dependence on renal dialysis; Z99.2 - Dependence on renal dialysis; Z99.2 - Dependence on renal dialysis; Z99.2 - Dependence on renal dialysis - Plan Daily dialysis with ultrafiltration per nephrology. Seems to be cognitively improving. Sedation being weaned. Following commands. Mobilizing secretions. Metabolically improved.
[2020-01-07] MEDS: EPOETIN ALFA-EPBX (ESRD) 10,000 UNIT/ML VIAL IVP SCH (17:44)
[2020-01-07] MEDS: Atorvastatin Calcium 10 MG TAB PO SCH (21:04)
[2020-01-07] MEDS: Doxazosin 2 MG TAB PO SCH (21:05)
[2020-01-07] MEDS: Amlodipine 10 MG TAB PO SCH (21:05)
[2020-01-08] MEDS: Piperacillin/Tazobactam 2.25 GM in Sodium Chloride 0.9% 100 ML IVPB SCH ×3 (04:18→20:53)
[2020-01-08] MEDS: HumaLOG 300 UNITS/3 ML VIAL SC PRN ×2 (04:26→18:41)
[2020-01-08 04:32] LABS: #Eosinphils 0.1 thou/uL (0.0-0.7); #Lymphocytes 0.9 thou/uL (1.20-3.40); #Monocytes 0.9 thou/uL (0.11-0.59); #Neutrophils 7.2 thou/uL (1.40-6.50); %Eosinophils 0.7 % (0.0-10.0); %Lymphocytes 9.7 % (21.0-51.0); %Monocytes 10.1 % (0.0-10.0); %Neutrophils 79.5 % (42.0-75.0); Hemoglobin 8.1 g/dL (14.0-18.0); Mean Corpuscular HGB CONC 34.1 g/dL (32.0-36.0); Mean Corpuscular Hemoglobin 33.6 pg (27.0-31.0); Mean Corpuscular Volume 98.5 fL (78.0-98.0); Mean Platelet Volume 11.6 fL (7.4-10.4); Platelet Count 164 thou/uL (130-400); RBC Distribution Width 13.2 % (11.5-14.5); Red Blood Cell (RBC) Count 2.41 mill/uL (4.70-6.10)
[2020-01-08 04:50] LABS: Anion Gap 16 mmol/L (10-20); BUN (Urea Nitrogen) 36 mg/dL (8.4-25.7); Calc. Creatinine Clearance 18 mL/min (70-130); Calcium 8.6 mg/dL (7.8-10.44); Carbon Dioxide 28 mmol/L (23-31); Chloride 100 mmol/L (98-107); Estimated GFR-MDRD 17; Glucose 153 mg/dL (83-110); Potassium 3.7 mmol/L (3.5-5.1); Sodium 140 mmol/L (136-145)
[2020-01-08 07:40] LABS: Actual Bicarbonate (HCO3a) 27.1 mEq/L (22-28); Base Excess (BEa) 4.1 mEq/L (-2.0 to +3.0); CO2 Tension 33.7 mmHg (35.0-45.0); Calcium, Ionized 1.09 mmol/L (1.12-1.30); Carboxyhemoglobin (COHb) 1.7 gm% (0.0-3.0); O2 Tension (PaO2) 70.7 mmHg (> 70.0); Potassium - ABG Lab 3.42 mmol/L (3.70-5.30); pH, Arterial 7.52 (7.35-7.45)
[2020-01-08 07:48] LABS: ALV-art Gradient 51.165 (0-20); Puncture Site LB
[2020-01-08] MEDS: Heparin 5,000 UNITS/ML VIAL SC SCH ×3 (08:19→20:54)
[2020-01-08] MEDS: Calcium Acetate 667 MG CAP PO SCH ×3 (08:19→17:10)
[2020-01-08] MEDS: Gemfibrozil 600 MG TAB PO SCH ×2 (08:19→17:10)
[2020-01-08] MEDS: Sevelamer Carbonate 800 MG TAB PO SCH ×3 (08:20→17:10)
[2020-01-08] MEDS: Aspirin 81 mg Enteric Coated Tablet PO SCH (08:20)
[2020-01-08] MEDS: Famotidine/PF 20 mg/2ml Vial SLOW IVP SCH (08:20)
--- NOTE | 2020-01-08 08:42 | PDOC.CPN ---
- Subjective Date: 01/08/20 Time: 08:38 Interval history: Pt is more awake today but still with metabolic encephalopathy - Objective Allergies/Adverse Reactions: Allergies Allergy/AdvReac Type Severity Reaction Status Date / Time No Known Allergies Allergy Verified 06/25/18 15:47 Visit Medications: Current Medications Amlodipine Besylate (Norvasc) 10 mg PO HS [facility] Last Admin: 01/07/20 21:05 Dose: Not Given Aspirin (Ecotrin) 81 mg PO DAILY [facility] Last Admin: 01/08/20 08:20 Dose: 81 mg Atorvastatin Calcium (Lipitor) 10 mg PO HS [facility] Last Admin: 01/07/20 21:04 Dose: 10 mg Calcium Acetate (Phoslo) 667 mg PO TID-WM [facility] Last Admin: 01/08/20 08:19 Dose: 667 mg Dextrose/Water (Dextrose 50%) 25 gm SLOW IVP PRN PRN PRN Reason: Hypoglycemia Doxazosin Mesylate (Cardura) 2 mg PO [facility] Last Admin: 01/07/20 21:05 Dose: Not Given Epoetin Tab-epbx (Retacrit) 10,000 unit IVP TuTa [facility] Last Admin: 01/07/20 17:44 Dose: 10,000 unit Famotidine (Pepcid) 20 mg SLOW IVP DAILY [facility] Last Admin: 01/08/20 08:20 Dose: 20 mg Gemfibrozil (Lopid) 600 mg PO BID-AC [facility] Last Admin: 01/08/20 08:19 Dose: 600 mg Glucagon (Glucagon) 1 mg IM PRN PRN PRN Reason: Hypoglycemia Heparin Sodium (Porcine) (Heparin) 5,000 units SC TID [facility] Last Admin: 01/08/20 08:19 Dose: 5,000 units Dextrose/Water (D5w) 1,000 mls @ 0 mls/hr IV .Q0M PRN PRN Reason: Hypoglycemia Fentanyl Citrate 2,000 mcg/ (Sodium Chloride) 100 mls @ 0 mls/hr IV INF [facility]; Protocol Stop: 02/04/20 17:46 Fentanyl Citrate (Fentanyl Bolus) 250 mls @ 0 mls/hr IVPB PRN PRN PRN Reason: Breakthrough pain/agitation Stop: 02/04/20 17:46 Piperacillin Sod/Tazobactam (Sod 2.25 gm/ Sodium Chloride) 100 mls @ 200 mls/ hr IVPB 0400,1200,2000 [facility] Last Admin: 01/08/20 04:18 Dose: 100 mls Amiodarone HCl 450 mg/Miscellaneous Medication 1 each/ Dextrose/Water 259 mls @ 0 mls/hr IVPB INF [facility]; Protocol Insulin Human Lispro (Humalog) 0 units SC .MILD SLIDING SCALE PRN PRN Reason: Mild Correctional Scale Last Admin: 01/08/20 04:26 Dose: 2 unit Lorazepam (Ativan) 2 mg SLOW IVP Q1H PRN PRN Reason: Breakthrough agitation Stop: 02/04/20 17:46 Metoprolol Tartrate (Lopressor) 50 mg PO BID [facility] Last Admin: 01/07/20 21:06 Dose: Not Given Mineral Oil/White Petrolatum (Systane Nighttime Eye Ointment) 0 gm EA EYE Q6H PRN PRN Reason: Dry Eyes Last Admin: 01/07/20 08:29 Dose: 1 each Morphine Sulfate (Morphine) 2 mg SLOW IVP Q4H PRN PRN Reason: Moderate Pain (4-6) Discontinue Previous Narcotic Pain Medications And Benzodiazepines 1 each FS .ONE [facility] Stop: 02/04/20 17:46 Propofol (Diprivan) 1,000 mg IV INF PRN; Protocol PRN Reason: TO ACHIEVE GOAL RASS Stop: 02/04/20 17:46 Propofol (Diprivan Bolus) 20 mg IV Q5MIN PRN PRN Reason: BREAKTHROUGH AGITATION Stop: 02/04/20 17:46 Sevelamer Carbonate (Renvela) 800 mg PO TID-WM [facility] Last Admin: 01/08/20 08:20 Dose: 800 mg Sodium Chloride (Flush - Normal Saline) 10 ml IVF PRN PRN PRN Reason: Saline Flush Vital Signs & Weight: Vital Signs Temp Pulse Resp BP 01/08/20 08:00 100.6 F H 01/08/20 07:19 94 152/74 H 01/08/20 06:00 18 01/08/20 04:00 98.6 F 21 H 01/08/20 02:54 98 93/48 L 01/08/20 02:00 17 01/08/20 00:00 98.6 F 15 01/07/20 22:18 102 H 113/54 L 02/08/20 22:00 17 01/07/20 21:05 117 H 147/62 H Admit Weight 165 lb 12.602 oz Weight 156 lb 8.451 oz - Physical Exam General: no apparent distress Neck: no masses, no bruit Cardiac: regular rate, regular rhythm Lungs: normal exam Neuro: grossly intact Abdomen: no masses - Labs Result Diagrams: 01/08/20 04:24 01/08/20 04:24 Troponin/CKMB CK-MB (CK-2) 23.7 ng/mL (0-6.6) H* 01/06/20 11:15 Troponin I 2.139 ng/mL (< 0.028) H* 01/06/20 11:15 - Assessment/Plan Assessment/Plan: Respiraotry arrest ESRD Hyperkalemia PLAN 01/08 See below Slowly improving May need angio prior to DC vs stress testing Neurologically improving slowly No new CV changes K level normalized after dialysis Elevated troponin secondary to demand ishcemia Will follow
[2020-01-08] MEDS: Metoprolol Tartrate 50 MG TAB PO SCH ×2 (09:37→22:43)
[2020-01-08] MEDS ORDERED: DC Sedation Protocol FS ONE (09:53)
--- NOTE | 2020-01-08 10:14 | RAD ---
EXAM: Portable chest PROVIDED CLINICAL HISTORY: Respiratory insufficiency COMPARISON: None FINDINGS: Left IJ central catheter tip is now directed cephalad, and overlies expected location of brachiocepha lic confluence. Additional significant interval change with respect to the prior examination is not apparent. IMPRESSION: As above.
--- NOTE | 2020-01-08 10:26 | PRG ---
DATE OF SERVICE: 01/08/2020 SUBJECTIVE: Brandon Keller is a 74-year-old gentleman, who remains encephalopathic in the ICU, but his brother says he is a little bit more responsive. OBJECTIVE: VITAL SIGNS: His pulse 106, blood pressure 144/68, saturations 100%, and respirations 18. CHEST: Decreased breath sounds. No wheezing. CARDIAC: Normal S1 and S2. No gallops. ABDOMEN: No masses. LABORATORY DATA: White count 9000, H and H 8 and 23, and platelet count 163. PO2 of 70, pCO2 33, pH 7.52 at a rate of 8. His creatinine is 3. ASSESSMENT: Metabolic encephalopathy, renal failure, congestive heart failure, aspiration pneumonia, and severe deconditioning. PLAN: Wean and extubate. Continue amiodarone. Discontinue sedation. Dialysis tomorrow. One-half hour of critical care time. Job ID: [id number]
--- NOTE | 2020-01-08 11:42 | PDOC.HOSPP ---
- Subjective Encounter Date: 01/08/20 Subjective: Extubated this morning a little over an hour ago. Still a little encephalopathic and non-verbal. - Objective Vital Signs & Weight: Vital Signs (12 hours) Temp Pulse Resp BP Pulse Ox 01/08/20 10:21 100 01/08/20 10:18 103 H 20 100 01/08/20 08:00 100.6 F H 01/08/20 07:19 94 152/74 H 01/08/20 06:00 18 01/08/20 04:00 98.6 F 21 H 01/08/20 02:54 98 93/48 L 01/08/20 02:00 17 01/08/20 00:00 98.6 F 15 Weight Admit Weight 165 lb 12.602 oz Weight 156 lb 8.451 oz Most Recent Monitor Data Heart Rate from ECG 103 NIBP 148/63 NIBP BP-Mean 91 Respiration from ECG 25 SpO2 99 I&O: 01/07/20 01/08/20 01/09/20 06:59 06:59 06:59 Intake Total 3349.9 1493.1 120 Output Total 70 97 10 Balance 3279.9 1396.1 110 Result Diagrams: 01/08/20 04:24 01/08/20 04:24 Additional Labs: Accuchecks 01/08/20 01/08/20 01/07/20 04:20 00:32 20:23 POC Glucose 163 H 141 H 115 H 01/07/20 16:24 POC Glucose 124 H Hospitalist ROS - Medication Medications: Active Medications Generic Name Dose Route Start Last Admin Trade Name Freq PRN Reason Stop Dose Admin Amlodipine Besylate 10 mg 01/05/20 21:00 01/07/20 21:05 Norvasc PO Not Given HS [facility] Aspirin 81 mg 01/06/20 09:00 01/08/20 08:20 Ecotrin PO 81 mg DAILY [facility] Administration Atorvastatin Calcium 10 mg 01/05/20 21:00 01/07/20 21:04 Lipitor PO 10 mg HS [facility] Administration Calcium Acetate 667 mg 01/06/20 08:00 01/08/20 08:19 Phoslo PO 667 mg TID-WM [facility] Administration Doxazosin Mesylate 2 mg 01/05/20 21:00 01/07/20 21:05 Cardura PO Not Given HS [facility] Epoetin Tab-epbx 10,000 unit 01/07/20 12:45 01/07/20 17:44 Retacrit IVP 10,000 unit TuThSa [facility] Administration Famotidine 20 mg 01/06/20 09:00 01/08/20 08:20 Pepcid SLOW IVP 20 mg DAILY [facility] Administration Gemfibrozil 600 mg 01/06/20 07:30 01/08/20 08:19 Lopid PO 600 mg BID-AC [facility] Administration Heparin Sodium (Porcine) 5,000 units 01/05/20 21:00 01/08/20 08:19 Heparin SC 5,000 units TID [facility] Administration Piperacillin Sod/Tazobactam 100 mls @ 200 mls/hr 01/05/20 20:00 01/08/20 04: 18 Sod 2.25 gm/ Sodium Chloride IVPB 100 mls 0400,1200,2000 [facility] Administration Insulin Human Lispro 0 units 01/05/20 15:43 01/08/20 04:26 Humalog SC 2 unit .MILD SLIDING SCALE PRN Administration Mild Correctional Scale Metoprolol Tartrate 50 mg 01/05/20 21:00 01/08/20 09:37 Lopressor PO Not Given BID [facility] Mineral Oil/White Petrolatum 0 gm 01/06/20 15:30 01/07/20 08:29 Systane Nighttime Eye Ointment EA EYE 1 each Q6H PRN Administration Dry Eyes Sevelamer Carbonate 800 mg 01/06/20 08:00 01/08/20 08:20 Renvela PO 800 mg TID-WM [facility] Administration - Exam General Appearance: NAD General - other findings: Awake. Encephalopathic. Heart: RRR, no gallops, no rubs, normal peripheral pulses, II/IV Respiratory: CTAB, no wheezes, no rales, no ronchi Respiratory - other findings: Upper airway rales. Gastrointestinal: soft, non-tender, non-distended, normal bowel sounds, no palpable masses, no hepatomegaly, no splenomegaly, no bruit Extremities - other findings: Puffy edema of hands. Musculoskeletal: generalized weakness Psychiatric - other findings: Encephalpathic. Hosp A/P (1) Acute metabolic encephalopathy Code(s): G93.41 - METABOLIC ENCEPHALOPATHY Status: Acute (2) Acute respiratory failure with hypoxia Code(s): J96.01 - ACUTE RESPIRATORY FAILURE WITH HYPOXIA Status: Acute (3) Hyperkalemia Code(s): E87.5 - HYPERKALEMIA Status: Acute (4) Metabolic acidosis Code(s): E87.2 - ACIDOSIS Status: Acute (5) Coronary artery disease Code(s): I25.10 - ATHSCL HEART DISEASE OF [place] CORONARY ARTERY W/O ANG PCTRS Status: Chronic (6) End stage renal disease on dialysis Code(s): N18.6 - END STAGE RENAL DISEASE; Z99.2 - DEPENDENCE ON RENAL DIALYSIS Status: Chronic (7) Hypertension Code(s): I10 - ESSENTIAL (PRIMARY) HYPERTENSION Status: Chronic (8) Anemia Code(s): D64.9 - ANEMIA, UNSPECIFIED Status: Chronic Qualifiers: Anemia type: due to chronic kidney disease Chronic kidney disease stage: on chronic dialysis Qualified Code(s): N18.6 - End stage renal disease; D63.1 - Anemia in chronic kidney disease; D63.1 - Anemia in chronic kidney disease; Z99.2 - Dependence on renal dialysis; Z99.2 - Dependence on renal dialysis; Z99.2 - Dependence on renal dialysis; Z99.2 - Dependence on renal dialysis - Plan Likely uremic encephalopathy. Dialysis with ultrafiltration per nephrology. Skippping today. Seems to be cognitively improving overall. Not much better today. Did not follow commands for me, but did for his brother. Mobilizing secretions, but poorly. Metabolically improved. Give a little more time off the vent to see how his mentation improves. Does not appear to localize and neuro deficits. If he does not improve significantly, may need MRI when more stable.
[2020-01-08] MEDS ORDERED: Acetaminophen 650 MG/20.3 ML UDCUP PER TUBE PRN (15:45)
[2020-01-08] MEDS: Atorvastatin Calcium 10 MG TAB PO SCH (20:53)
[2020-01-08] MEDS: Amlodipine 10 MG TAB PO SCH (22:43)
[2020-01-08] MEDS: Doxazosin 2 MG TAB PO SCH (22:43)
[2020-01-09] MEDS: Amlodipine 10 MG TAB PO SCH ×2 (00:05→21:15)
[2020-01-09] MEDS: Piperacillin/Tazobactam 2.25 GM in Sodium Chloride 0.9% 100 ML IVPB SCH ×3 (04:44→21:35)
[2020-01-09] MEDS: HumaLOG 300 UNITS/3 ML VIAL SC PRN ×3 (06:06→21:16)
[2020-01-09 06:15] LABS: #Eosinphils 0.1 thou/uL (0.0-0.7); #Lymphocytes 0.8 thou/uL (1.20-3.40); #Neutrophils 9.6 thou/uL (1.40-6.50); %Basophils 0.1 % (0.0-1.0); %Eosinophils 0.6 % (0.0-10.0); %Lymphocytes 6.5 % (21.0-51.0); %Monocytes 8.6 % (0.0-10.0); %Neutrophils 84.2 % (42.0-75.0); Mean Corpuscular HGB CONC 34.6 g/dL (32.0-36.0); Mean Corpuscular Hemoglobin 33.9 pg (27.0-31.0); Mean Platelet Volume 10.7 fL (7.4-10.4); Platelet Count 154 thou/uL (130-400); RBC Distribution Width 13.5 % (11.5-14.5); Red Blood Cell (RBC) Count 2.35 mill/uL (4.70-6.10); White Blood Cell (WBC) Count 11.4 thou/uL (4.8-10.8)
[2020-01-09 06:34] LABS: Anion Gap 18 mmol/L (10-20); BUN (Urea Nitrogen) 55 mg/dL (8.4-25.7); Calc. Creatinine Clearance 12 mL/min (70-130); Calcium 8.6 mg/dL (7.8-10.44); Carbon Dioxide 27 mmol/L (23-31); Chloride 102 mmol/L (98-107); Estimated GFR-MDRD 11; Glucose 163 mg/dL (83-110); Potassium 3.6 mmol/L (3.5-5.1); Sodium 143 mmol/L (136-145)
[2020-01-09] MEDS: Metoprolol Tartrate 50 MG TAB PO SCH ×2 (08:05→21:14)
[2020-01-09] MEDS: Sevelamer Carbonate 800 MG TAB PO SCH ×3 (08:05→16:42)
[2020-01-09] MEDS: Aspirin 81 mg Enteric Coated Tablet PO SCH (08:05)
[2020-01-09] MEDS: Calcium Acetate 667 MG CAP PO SCH ×3 (08:05→16:42)
[2020-01-09] MEDS: Heparin 5,000 UNITS/ML VIAL SC SCH ×3 (08:06→21:15)
[2020-01-09] MEDS: Famotidine 20 MG TAB PER TUBE SCH (08:09)
--- NOTE | 2020-01-09 08:18 | PRG ---
DATE OF SERVICE: 01/07/2020 SUBJECTIVE: Brandon Keller is a 74-year-old gentleman left intubated on the vent. Dialyzed yesterday. He is on low-dose sedation. OBJECTIVE: VITAL SIGNS: His pulse is 82, blood pressure is 111/72, sats are 99%, and respirations 14. CHEST: Decreased breath sounds. No wheezing. CARDIAC: Normal S1 and S2. No gallops. ABDOMEN: No masses. LABORATORY DATA: His PO2 is 83, pCO2 of 31, pH 7.44. White count 7000. hemoglobin 8, hematocrit 25. Chemistries show creatinine 3.96. His chemistry shows creatinine of 3.96. IMPRESSION: [id number] cardiopulmonary arrest, respiratory failure, end-stage renal disease, encephalopathy, possibly hypoxic. PLAN: Hold sedation. Continue dialysis. We will wean and extubate if he is stable in the meantime, empiric antibiotics and supportive care. One-half hour of critical time. Job ID: [id number]
[2020-01-09] MEDS: Gemfibrozil 600 MG TAB PO SCH ×2 (08:23→16:42)
--- NOTE | 2020-01-09 11:19 | PRG ---
DATE OF SERVICE: 01/08/2020 SUBJECTIVE: The patient was seen at 7 ICU. His family was at the bedside. The patient was extubated this morning, but remains not very responsive, somewhat gurgling sounds. OBJECTIVE: GENERAL: This is a well-built male, still not very responsive. VITAL SIGNS: Temperature 100.6, pulse 103, respiratory rate 25, blood pressure 148/63. HEENT: Atraumatic, normocephalic. NECK: Supple. CVS: S1-S2 heard. RESPIRATORY: Clear. GI: Abdomen is soft. MUSCULOSKELETAL: DERMATOLOGIC: NEUROLOGIC: Somnolent. Potassium 3.7, BUN is 36, and creatinine is 3.5. ASSESSMENT AND PLAN: 1. End-stage renal disease. No acute indication for dialysis. We will continue dialysis Thursday, , and Thursday. 2. Fluid overload, better. Limit fluid intake and salt due to his edema. 3. History of hypertension. 4. Hyperkalemia, better. Overall, the patient got extubated, neurological status is being evaluated and monitored. We will continue dialysis as tolerated. Job ID: [id number]
--- NOTE | 2020-01-09 11:44 | PRG ---
DATE OF SERVICE: 01/09/2020 SUBJECTIVE: This is a 74-year-old gentleman, being seen for end-stage renal disease. The patient remains confused. OBJECTIVE: GENERAL: The patient is resting. VITAL SIGNS: Pulse 85, breathing 16, blood pressure 130/61. GENERAL APPEARANCE AND MENTAL STATUS: Fair. HEAD/NECK: Normocephalic. Atraumatic. EYES: EOMI. No deformity. EARS: Clear. No ulcers. NOSE: Intact. No lesions. MOUTH: Clear. No discharge. THROAT: Clear. No exudate. LUNGS: Clear. No crackles. CARDIAC: S1, S2. No rub. ABDOMEN: Benign. Bowel sounds positive. GENITALIA/RECTUM: Call absent. BACK/EXTREMITIES: Edema 0+. NEUROLOGICAL: The patient is resting. SKIN: LYMPHATICS: LABORATORY DATA: Reviewed. ASSESSMENT AND PLAN: 1. Stage 6 chronic kidney disease. Plan dialysis today. 2. Hypertension, stable. 3. Anemia, stable. 4. Medication based on GFR, appropriate. 5. Prognosis is poor. Job ID: [id number]
--- NOTE | 2020-01-09 13:26 | PRG ---
DATE OF SERVICE: 01/09/2020 SERVICE: Pulmonary Medicine. INTERVAL HISTORY: The patient is doing okay overnight. He tolerated extubation just fine. Yesterday morning, he was completely obtunded and sleepy. In the afternoon, he woke up, was conversive. He was able to follow all commands, neurologically he was intact. Overnight, he did not sleep very well and this morning, he is once again super sleepy. That being said, vital signs and hemodynamics remained stable. He has been weaned down to room air and there has been no interval change in his condition otherwise. PHYSICAL EXAMINATION: VITAL SIGNS: Afebrile currently with a T-max of 100.6 yesterday morning. Pulse is 78, blood pressure 135/56, respirations 18, and saturation 100%, currently on room air. GENERAL: The patient is somnolent. He follows some simple commands. He looks like he is in no apparent distress. HEENT: Normocephalic and atraumatic. Sclerae white. Conjunctivae pink. Oral mucosa is moist without lesions. LUNGS: Decent air entry. Minimal rhonchi are present. He has a good cough. Crackles are not appreciated in bibasilar regions. HEART: Normal rate. Regular. ABDOMEN: Soft, nontender, and nondistended. Bowel sounds are positive. MUSCULOSKELETAL: No cyanosis or clubbing. No pitting in the bilateral lower extremities. NEUROLOGIC: Grossly nonfocal. He moves all 4 extremities to command, and withdraws from noxious stimuli. He sticks out his tongue, which is midline. Cranial nerves 2 through 12 are grossly intact. LABORATORY DATA: WBC 11.4, hemoglobin 8.0, platelets 154,000. Neutrophil count is 84%. INR 2.0. Creatinine 5.26 and gently up trending. BUN 55, improved dramatically compared to presentation. Basic metabolic profile is otherwise unremarkable. Blood cultures x2 are negative. ASSESSMENT: 1. Acute hypoxic respiratory failure, resolved. 2. Metabolic encephalopathy. 3. Delirium, suspected. 4. End-stage renal disease, on dialysis. DISCUSSION AND PLAN: Supportive care will be continued. Call catheter will be removed. We will continue empiric antibiotics for the time being, but can likely deescalate in 24 hours should all culture results be negative. At this point, he is stable for transition out of the ICU to the telemetry unit. Wound care will be involved as he has an unstageable lesion on his backside which was present on admission. Pulmonary will follow. Job ID: [id number]
[2020-01-09 15:10] LABS: Hematocrit 32.6 % (37.5-51.0); RBC Folate Test Component 1491 ng/mL (>498)
--- NOTE | 2020-01-09 16:26 | MRI ---
EXAM: MRI of the brain without contrast HISTORY: Found down after missing dialysis. History of stroke. COMPARISON: 01/09/2003 TECHNIQUE: Multiplanar multisequence MR images were obtained of the brain without IV contrast. FINDINGS: Encephalomalacia seen in the left occipital lobe. No restricted diffusion. No hydronephrosis. No extra-axial fluid collection or intracranial hemorrhage. The expected flow voids are present. Corpus callosum, pituitary, and craniocervical junction are within normal limits. The calvarium and overlying soft tissues are unremarkable. Fluid is seen in the bilateral mastoid air cells. Mucosal thickening is seen in the left maxillary an d ethmoid sinuses. IMPRESSION: Remote left [employer] distribution infarction without acute intracranial abnormality
--- NOTE | 2020-01-09 16:54 | PDOC.HOSPP ---
- Subjective Encounter Date: 01/09/20 Subjective: Doing about the same per nurse. Slightly less responsive today. - Objective Vital Signs & Weight: Vital Signs (12 hours) Temp Pulse Ox 01/09/20 12:00 99.0 F 01/09/20 08:00 99.7 F H 98 01/09/20 07:43 100 Weight Admit Weight 165 lb 12.602 oz Weight 159 lb 2.78 oz Most Recent Monitor Data Heart Rate from ECG 85 NIBP 145/79 NIBP BP-Mean 101 Respiration from ECG 12 SpO2 97 I&O: 01/08/20 01/09/20 01/10/20 06:59 06:59 06:59 Intake Total 1493.1 1732 150 Output Total 97 415 241 Balance 1396.1 1317 -91 Result Diagrams: 01/09/20 06:00 01/09/20 06:00 Additional Labs: Accuchecks 01/09/20 01/09/20 01/09/20 11:56 06:08 00:01 POC Glucose 165 H 179 H 149 H 01/08/20 18:44 POC Glucose 156 H Hospitalist ROS - Medication Medications: Active Medications Generic Name Dose Route Start Last Admin Trade Name Freq PRN Reason Stop Dose Admin Amlodipine Besylate 10 mg 01/05/20 21:00 01/09/20 00:05 Norvasc PO 10 mg HS [facility] Administration Aspirin 81 mg 01/06/20 09:00 01/09/20 08:05 Ecotrin PO 81 mg DAILY [facility] Administration Atorvastatin Calcium 10 mg 01/05/20 21:00 01/08/20 20:53 Lipitor PO 10 mg HS [facility] Administration Calcium Acetate 667 mg 01/06/20 08:00 01/09/20 16:42 Phoslo PO 667 mg TID-WM [facility] Administration Doxazosin Mesylate 2 mg 01/05/20 21:00 01/08/20 22:43 Cardura PO Not Given HS [facility] Epoetin Tab-epbx 10,000 unit 01/07/20 12:45 01/07/20 17:44 Retacrit IVP 10,000 unit TuThSa [facility] Administration Famotidine 20 mg 01/09/20 09:00 01/09/20 08:09 Pepcid PER TUBE 20 mg DAILY [facility] Administration Gemfibrozil 600 mg 01/06/20 07:30 01/09/20 16:42 Lopid PO 600 mg BID-AC [facility] Administration Heparin Sodium (Porcine) 5,000 units 01/05/20 21:00 01/09/20 14:20 Heparin SC 5,000 units TID [facility] Administration Piperacillin Sod/Tazobactam 100 mls @ 200 mls/hr 01/05/20 20:00 01/09/20 11: 45 Sod 2.25 gm/ Sodium Chloride IVPB 100 mls 0400,1200,2000 [facility] Administration Insulin Human Lispro 0 units 01/05/20 15:43 01/09/20 11:53 Humalog SC 2 unit .MILD SLIDING SCALE PRN Administration Mild Correctional Scale Metoprolol Tartrate 75 mg 01/08/20 21:00 01/09/20 08:05 Lopressor PO 75 mg BID [facility] Administration Mineral Oil/White Petrolatum 0 gm 01/06/20 15:30 01/07/20 08:29 Systane Nighttime Eye Ointment EA EYE 1 each Q6H PRN Administration Dry Eyes Sevelamer Carbonate 800 mg 01/06/20 08:00 01/09/20 16:42 Renvela PO 800 mg TID-WM [facility] Administration - Exam General Appearance: NAD, awake alert Heart: RRR, no murmur, no gallops, no rubs, normal peripheral pulses Respiratory: CTAB, no wheezes, no rales, no ronchi, normal chest expansion, no tachypnea, normal percussion Gastrointestinal: soft, non-tender, non-distended, normal bowel sounds, no palpable masses, no hepatomegaly, no splenomegaly, no bruit Extremities - other findings: Generalized edema of the extremities. Skin: normal turgor Psychiatric: lethargic Psychiatric - other findings: Does not follow commands. Does move ext spontaneously, but not much. Hosp A/P (1) Acute metabolic encephalopathy Code(s): G93.41 - METABOLIC ENCEPHALOPATHY Status: Acute (2) Acute respiratory failure with hypoxia Code(s): J96.01 - ACUTE RESPIRATORY FAILURE WITH HYPOXIA Status: Acute (3) Hyperkalemia Code(s): E87.5 - HYPERKALEMIA Status: Acute (4) Metabolic acidosis Code(s): E87.2 - ACIDOSIS Status: Resolved (5) Coronary artery disease Code(s): I25.10 - ATHSCL HEART DISEASE OF [place] CORONARY ARTERY W/O ANG PCTRS Status: Chronic (6) End stage renal disease on dialysis Code(s): N18.6 - END STAGE RENAL DISEASE; Z99.2 - DEPENDENCE ON RENAL DIALYSIS Status: Chronic (7) Hypertension Code(s): I10 - ESSENTIAL (PRIMARY) HYPERTENSION Status: Chronic (8) Anemia Code(s): D64.9 - ANEMIA, UNSPECIFIED Status: Chronic Qualifiers: Anemia type: due to chronic kidney disease Chronic kidney disease stage: on chronic dialysis Qualified Code(s): N18.6 - End stage renal disease; D63.1 - Anemia in chronic kidney disease; D63.1 - Anemia in chronic kidney disease; Z99.2 - Dependence on renal dialysis; Z99.2 - Dependence on renal dialysis; Z99.2 - Dependence on renal dialysis; Z99.2 - Dependence on renal dialysis - Plan Likely uremic encephalopathy. Dialysis with ultrafiltration per nephrology. Skipping again today. Seems to be cognitively worsening. Did not follow commands for me. Less responsive. MRI brain. Neurology consult. Mobilizing secretions, but poorly. Metabolically improved.
[2020-01-09] MEDS: Atorvastatin Calcium 10 MG TAB PO SCH (21:15)
[2020-01-09] MEDS: Doxazosin 2 MG TAB PO SCH (21:15)
[2020-01-10] MEDS: Piperacillin/Tazobactam 2.25 GM in Sodium Chloride 0.9% 100 ML IVPB SCH ×3 (04:38→21:44)
[2020-01-10 06:01] LABS: Anion Gap 18 mmol/L (10-20); BUN (Urea Nitrogen) 77 mg/dL (8.4-25.7); Calc. Creatinine Clearance 10 mL/min (70-130); Calcium 8.8 mg/dL (7.8-10.44); Carbon Dioxide 25 mmol/L (23-31); Chloride 102 mmol/L (98-107); Estimated GFR-MDRD 9; Glucose 191 mg/dL (83-110); Potassium 3.5 mmol/L (3.5-5.1); Sodium 141 mmol/L (136-145)
[2020-01-10 06:22] LABS: Hemoglobin 8.1 g/dL (14.0-18.0); Mean Corpuscular HGB CONC 34.2 g/dL (32.0-36.0); Mean Corpuscular Volume 99.2 fL (78.0-98.0); Mean Platelet Volume 11.7 fL (7.4-10.4); Platelet Count 167 thou/uL (130-400); RBC Distribution Width 13.7 % (11.5-14.5); Red Blood Cell (RBC) Count 2.39 mill/uL (4.70-6.10); White Blood Cell (WBC) Count 12.8 thou/uL (4.8-10.8)
[2020-01-10] MEDS: HumaLOG 300 UNITS/3 ML VIAL SC PRN ×2 (06:37→19:14)
[2020-01-10 06:39] LABS: Band 1 % (5-11); Eosinophils 1 % (0-10); Lymphocytes 7 % (21-51); MDiff Complete? YES; Metamyelocyte 1 % (0-0); Monocytes 6 % (0-10); Neutrophil 84 % (42-75); Platelet Morphology Comment Appears Adequate
--- NOTE | 2020-01-10 08:21 | PDOC.CPN ---
- Subjective Date: 01/10/20 Time: 13:52 Interval history: No changes noted. Pt continues with metabolic encephalopathy - Objective Allergies/Adverse Reactions: Allergies Allergy/AdvReac Type Severity Reaction Status Date / Time No Known Allergies Allergy Verified 06/25/18 15:47 Visit Medications: Current Medications Acetaminophen (Tylenol Elixir) 650 mg PER TUBE Q6H PRN PRN Reason: TEMP >/= 100.3 Amlodipine Besylate (Norvasc) 10 mg PO [facility] Last Admin: 01/09/20 21:15 Dose: 10 mg Aspirin (Ecotrin) 81 mg PO DAILY [facility] Last Admin: 01/09/20 08:05 Dose: 81 mg Atorvastatin Calcium (Lipitor) 10 mg PO HS [facility] Last Admin: 01/09/20 21:15 Dose: 10 mg Calcium Acetate (Phoslo) 667 mg PO TID-[facility] Last Admin: 01/09/20 16:42 Dose: 667 mg Dextrose/Water (Dextrose 50%) 25 gm SLOW IVP PRN PRN PRN Reason: Hypoglycemia Doxazosin Mesylate (Cardura) 2 mg PO [facility] Last Admin: 01/09/20 21:15 Dose: 2 mg Epoetin Tab-epbx (Retacrit) 10,000 unit IVP TuThSa [facility] Last Admin: 01/07/20 17:44 Dose: 10,000 unit Famotidine (Pepcid) 20 mg PER TUBE DAILY [facility] Last Admin: 01/09/20 08:09 Dose: 20 mg Gemfibrozil (Lopid) 600 mg PO BID-AC [facility] Last Admin: 01/09/20 16:42 Dose: 600 mg Glucagon (Glucagon) 1 mg IM PRN PRN PRN Reason: Hypoglycemia Heparin Sodium (Porcine) (Heparin) 5,000 units SC TID [facility] Last Admin: 01/09/20 21:15 Dose: 5,000 units Dextrose/Water (D5w) 1,000 mls @ 0 mls/hr IV .Q0M PRN PRN Reason: Hypoglycemia Piperacillin Sod/Tazobactam (Sod 2.25 gm/ Sodium Chloride) 100 mls @ 200 mls/ hr IVPB 0400,1200,2000 [facility] Last Admin: 01/10/20 04:38 Dose: 100 mls Insulin Human Lispro (Humalog) 0 units SC .MILD SLIDING SCALE PRN PRN Reason: Mild Correctional Scale Last Admin: 01/10/20 06:37 Dose: 2 unit Metoprolol Tartrate (Lopressor) 75 mg PO BID [facility] Last Admin: 01/09/20 21:14 Dose: 75 mg Mineral Oil/White Petrolatum (Systane Nighttime Eye Ointment) 0 gm EA EYE Q6H PRN PRN Reason: Dry Eyes Last Admin: 01/07/20 08:29 Dose: 1 each Sevelamer Carbonate (Renvela) 800 mg PO TID-WM [facility] Last Admin: 01/09/20 16:42 Dose: 800 mg Sodium Chloride (Flush - Normal Saline) 10 ml IVF PRN PRN PRN Reason: Saline Flush Vital Signs & Weight: Vital Signs Temp Pulse BP 01/10/20 08:06 98.2 F 01/10/20 04:00 97.9 F 01/09/20 23:28 98.4 F 01/09/20 21:15 84 144/61 H Admit Weight 165 lb 12.602 oz Weight 161 lb 9.6 oz - Physical Exam General: no apparent distress HEENT: normocephaly Neck: no masses, no bruit Cardiac: regular rate, regular rhythm Lungs: normal exam, no wheezes Extremities: no clubbing, no edema - Labs Result Diagrams: 01/10/20 04:36 01/10/20 04:36 Troponin/CKMB CK-MB (CK-2) 23.7 ng/mL (0-6.6) H* 01/06/20 11:15 Troponin I 2.139 ng/mL (< 0.028) H* 01/06/20 11:15 - Assessment/Plan Assessment/Plan: Respiraotry arrest ESRD Hyperkalemia PLAN 01/10 Pt with metabolic encephalopathy EF 45-50% Recent demise unknown and may have been related to ischemia vs hyperkalemia Peak troponin of 2.1 At this point, it may take weeks for pt to recover neurologically. Recommend continued medical therapy for now If neurologic stus improves significantly, so too would be the pts clinical management Rhythm has been stable since hospitalization Pt with previous h/o CAD s/p CABG PLAN 01/08 See below Slowly improving May need angio prior to DC vs stress testing Neurologically improving slowly No new CV changes K level normalized after dialysis Elevated troponin secondary to demand ishcemia Will follow
--- NOTE | 2020-01-10 09:42 | RAD ---
EXAM: Single view of the chest HISTORY: Leukocytosis COMPARISON: 01/08/2020 FINDINGS: Single view of the chest shows a normal sized cardiomediastinal silhouette. The patient is status post sternotomy. The endotracheal tube has been removed. The NG tube is seen in the stomach. The IJ still courses up the right innominate vein. There is no evidence of consolidation, m ass, or pleural effusion. The bones are unremarkable. IMPRESSION: Stable exam status post extubation.
[2020-01-10] MEDS: Famotidine 20 MG TAB PER TUBE SCH (09:51)
[2020-01-10] MEDS: Gemfibrozil 600 MG TAB PO SCH ×2 (09:51→17:47)
[2020-01-10] MEDS: Calcium Acetate 667 MG CAP PO SCH ×3 (09:51→17:11)
[2020-01-10] MEDS: Sevelamer Carbonate 800 MG TAB PO SCH ×3 (09:52→17:11)
[2020-01-10] MEDS: Heparin 5,000 UNITS/ML VIAL SC SCH ×3 (09:52→21:50)
[2020-01-10] MEDS: Metoprolol Tartrate 50 MG TAB PO SCH ×2 (09:52→21:50)
[2020-01-10] MEDS: Aspirin 81 mg Enteric Coated Tablet PO SCH (09:52)
[2020-01-10] MEDS: EPOETIN ALFA-EPBX (ESRD) 10,000 UNIT/ML VIAL IVP SCH (13:46)
[2020-01-10] MEDS ORDERED: predniSONE 5 MG TAB PO SCH (14:30)
--- NOTE | 2020-01-10 14:37 | PRG ---
DATE OF SERVICE: 01/10/2020 SERVICE: Pulmonary Medicine. INTERVAL HISTORY: The patient is doing fine from respiratory standpoint. Remains on room air. He demonstrates a decent cough. It is really not that rhonchorous. He is able to follow some simple commands. Today, with gentle stimulation, he wakes up appropriately. He still appears to be quite weak and a little bit encephalopathic, but is clearing day-by-day. He is currently on dialysis. Otherwise, there were no overnight events. PHYSICAL EXAMINATION: VITAL SIGNS: Afebrile, pulse 88, blood pressure 123/51, respirations 22, saturation 100%, currently on room air. GENERAL: The patient is awake and alert, in no apparent distress. LUNGS: Decent air entry without any prolonged expiratory phase or wheezing present. HEART: Normal rate. Regular. ABDOMEN: Soft, nontender, and nondistended. Bowel sounds are positive. MUSCULOSKELETAL: No cyanosis or clubbing. No pitting in the bilateral lower extremities. NEUROLOGIC: Grossly nonfocal. LABORATORY DATA: WBC 12.8, hemoglobin 8.1 and stable, platelets 167,000. Creatinine 6.28, BUN 77 and gently uptrending. Basic metabolic profile is otherwise unremarkable. Blood cultures x2 are negative. IMAGING STUDIES: MRI demonstrates no acute intracranial abnormality. Chest x-ray demonstrates status post extubation. No evidence of consolidation, mass, or effusion is present. ASSESSMENT: 1. Acute hypoxic respiratory failure, resolved. 2. Metabolic encephalopathy. 3. End-stage renal disease. 4. Delirium. DISCUSSION AND PLAN: The patient is doing fantastic from a respiratory standpoint. He can be considered for transition out of the ICU to the telemetry unit given his elevated troponin. At this point, he has no further requirements for inpatient Pulmonary or Critical Care opinion, and I will sign off. I will continue efforts at mobilizing the patient and minimize interventions through time if possible. Physical Therapy and Occupational Therapy consultations will be placed. Job ID: [id number]
--- NOTE | 2020-01-10 17:51 | PRG ---
DATE OF SERVICE: 01/10/2020 SUBJECTIVE: A 74-year-old gentleman, being seen for end-stage kidney disease. The patient is resting. OBJECTIVE: CONSTITUTIONAL: Awake, alert, in no acute distress. VITAL SIGNS: Afebrile, pulse 87, breathing 16, blood pressure 130/64. GENERAL APPEARANCE AND MENTAL STATUS: Fair. HEAD/NECK: Normocephalic. Atraumatic. EYES: EOMI. No deformity. EARS: Clear. No ulcers. NOSE: Intact. No lesions. MOUTH: Clear. No discharge. THROAT: Clear. No exudate. LUNGS: Clear. No crackles. CARDIAC: S1, S2. No rub. ABDOMEN: Benign. Bowel sounds positive. GENITALIA/RECTUM: Call absent. BACK/EXTREMITIES: Edema 0+. NEUROLOGICAL: Alert and motor intact. SKIN: LYMPHATICS: LABORATORY DATA: Reviewed. ASSESSMENT AND PLAN: 1. Stage 6 chronic kidney disease. Plan dialysis. 2. Hypertension, stable. 3. Anemia, stable. 4. Altered mental status, management per primary team. Job ID: [id number]
[2020-01-10 18:48] LABS: Free T4 (Free Thyroxine) 0.76 ng/dL (0.70-1.48)
[2020-01-10] MEDS: Amlodipine 10 MG TAB PO SCH (21:50)
[2020-01-10] MEDS: Atorvastatin Calcium 10 MG TAB PO SCH (21:50)
[2020-01-10] MEDS: Doxazosin 2 MG TAB PO SCH (21:50)
--- NOTE | 2020-01-10 22:27 | PDOC.HOSPP ---
- Subjective Encounter Date: 01/10/20 Subjective: Verbalizes, but incomprehensible. - Objective Vital Signs & Weight: Vital Signs (12 hours) Temp Pulse Pulse Pulse Resp BP BP 01/10/20 19:20 99.2 F 87 20 01/10/20 16:30 100.6 F H 87 18 01/10/20 16:06 01/10/20 14:55 87 91 136/70 133/67 01/10/20 12:23 98.2 F BP Pulse Ox Pulse Ox 01/10/20 19:20 148/67 H 93 L 01/10/20 16:30 134/64 94 L 01/10/20 16:06 136/70 01/10/20 14:55 97 01/10/20 12:23 Weight Admit Weight 165 lb 12.602 oz Weight 161 lb 9.6 oz Most Recent Monitor Data Heart Rate from ECG 91 NIBP 133/67 NIBP BP-Mean 89 Respiration from ECG 20 SpO2 97 I&O: 01/09/20 01/10/20 01/11/20 06:59 06:59 06:59 Intake Total 1732 1334 Output Total 394 133 6322 Balance 1317 1063 -1300 Result Diagrams: 01/10/20 04:36 01/10/20 04:36 Additional Labs: Accuchecks 01/10/20 01/10/20 01/10/20 21:52 18:16 12:06 POC Glucose 147 H 216 H 128 H 01/10/20 01/10/20 01/10/20 09:00 06:39 04:03 POC Glucose 171 H 198 H 181 H 01/09/20 23:56 POC Glucose 146 H Hospitalist ROS - Medication Medications: Active Medications Generic Name Dose Route Start Last Admin Trade Name Freq PRN Reason Stop Dose Admin Acetaminophen 650 mg 01/08/20 15:45 01/10/20 17:23 Tylenol Elixir PER TUBE 650 mg Q6H PRN Administration TEMP >/= 100.3 Amlodipine Besylate 10 mg 01/05/20 21:00 01/09/20 21:15 Norvasc PO 10 mg HS [facility] Administration Aspirin 81 mg 01/06/20 09:00 01/10/20 09:52 Ecotrin PO 81 mg DAILY [facility] Administration Atorvastatin Calcium 10 mg 01/05/20 21:00 01/10/20 21:50 Lipitor PO 10 mg HS [facility] Administration Calcium Acetate 667 mg 01/06/20 08:00 01/10/20 17:11 Phoslo PO 667 mg TID-WM [facility] Administration Doxazosin Mesylate 2 mg 01/05/20 21:00 01/10/20 21:50 Cardura PO 2 mg HS [facility] Administration Epoetin Tab-epbx 10,000 unit 01/07/20 12:45 01/10/20 13:46 Retacrit IVP 10,000 unit TuThSa [facility] Administration Famotidine 20 mg 01/09/20 09:00 01/10/20 09:51 Pepcid PER TUBE 20 mg DAILY [facility] Administration Gemfibrozil 600 mg 01/06/20 07:30 01/10/20 17:47 Lopid PO 600 mg BID-AC [facility] Administration Heparin Sodium (Porcine) 5,000 units 01/05/20 21:00 01/10/20 21:50 Heparin SC 5,000 units TID [facility] Administration Piperacillin Sod/Tazobactam 100 mls @ 200 mls/hr 01/05/20 20:00 01/10/20 21: 44 Sod 2.25 gm/ Sodium Chloride IVPB 100 mls 0400,1200,2000 [facility] Administration Insulin Human Lispro 0 units 01/05/20 15:43 01/10/20 19:14 Humalog SC 3 unit .MILD SLIDING SCALE PRN Administration Mild Correctional Scale Metoprolol Tartrate 75 mg 01/08/20 21:00 01/10/20 21:50 Lopressor PO 75 mg BID [facility] Administration Mineral Oil/White Petrolatum 0 gm 01/06/20 15:30 01/07/20 08:29 Systane Nighttime Eye Ointment EA EYE 1 each Q6H PRN Administration Dry Eyes Sevelamer Carbonate 800 mg 01/06/20 08:00 01/10/20 17:11 Renvela PO 800 mg TID-WM [facility] Administration - Exam General Appearance: NAD Heart: RRR, no gallops, no rubs, normal peripheral pulses, III/IV Respiratory: CTAB, no wheezes, no rales, no ronchi, normal chest expansion, no tachypnea, normal percussion Gastrointestinal: soft, non-tender, non-distended, normal bowel sounds, no palpable masses, no hepatomegaly, no splenomegaly, no bruit Extremities: no cyanosis, no clubbing Extremities - other findings: Puffy edema Neurological: no focal deficits Neurological - other findings: Encephalopathic. Follows commands. Psychiatric: lethargic Psychiatric - other findings: Encephalopathic Hosp A/P (1) Acute metabolic encephalopathy Code(s): G93.41 - METABOLIC ENCEPHALOPATHY Status: Acute (2) Acute respiratory failure with hypoxia Code(s): J96.01 - ACUTE RESPIRATORY FAILURE WITH HYPOXIA Status: Acute (3) Hyperkalemia Code(s): E87.5 - HYPERKALEMIA Status: Acute (4) Metabolic acidosis Code(s): E87.2 - ACIDOSIS Status: Resolved (5) Coronary artery disease Code(s): I25.10 - ATHSCL HEART DISEASE OF [place] CORONARY ARTERY W/O ANG PCTRS Status: Chronic (6) End stage renal disease on dialysis Code(s): N18.6 - END STAGE RENAL DISEASE; Z99.2 - DEPENDENCE ON RENAL DIALYSIS Status: Chronic (7) Hypertension Code(s): I10 - ESSENTIAL (PRIMARY) HYPERTENSION Status: Chronic (8) Anemia Code(s): D64.9 - ANEMIA, UNSPECIFIED Status: Chronic Qualifiers: Anemia type: due to chronic kidney disease Chronic kidney disease stage: on chronic dialysis Qualified Code(s): N18.6 - End stage renal disease; D63.1 - Anemia in chronic kidney disease; D63.1 - Anemia in chronic kidney disease; Z99.2 - Dependence on renal dialysis; Z99.2 - Dependence on renal dialysis; Z99.2 - Dependence on renal dialysis; Z99.2 - Dependence on renal dialysis - Plan Likely uremic encephalopathy. Dialysis with ultrafiltration per nephrology. Has had a waxing and waning encephalopathy. A little worse yesterday and better today. Following commands again today. MRI brain negative. Neurology consult pending. Mobilizing secretions, but poorly. Metabolically improved. Will need time, PT/OT.
--- NOTE | 2020-01-10 22:39 | CON ---
DATE OF CONSULTATION: 01/10/2020 CONSULTING PHYSICIAN: Hospitalist Service. IMPRESSION: Metabolic encephalopathy, which appears to be clearing. PLAN: Check free T4, B12, cortisols, vitamin B1 levels for completeness. HISTORY OF PRESENT ILLNESS: Mr. Keller is a 74-year-old gentleman, who has end-stage renal disease on hemodialysis. He has a past history of occipital stroke. He was admitted with respiratory difficulties. He was in the ICU for a period of time, but has moved to the floor now. He continued to have some lethargy during the ICU admission. Yesterday, Pulmonary commented that his level of responsiveness had improved. He currently is without any complaints of pain, shortness of breath or lateralized weakness or numbness. He had an MRI of the brain done, which did not show any acute ischemic changes. His echocardiogram showed normal ejection fraction around 50%. His lab work showed azotemia, but was otherwise unremarkable. PAST MEDICAL HISTORY: As listed above. ALLERGIES: PER CHART. SOCIAL HISTORY: No tobacco or illicit drug use. FAMILY HISTORY: Noncontributory. REVIEW OF SYSTEMS: Ten-system review of systems is otherwise negative. PHYSICAL EXAMINATION: GENERAL: He is a thin elderly man, sitting up in bed with a nasogastric tube in place. VITAL SIGNS: Have been stable. He is afebrile. HEENT: Pupils are equal. Conjunctivae clear. Oropharynx clear. Cranium, normocephalic and atraumatic. NECK: No lymphadenopathy. EXTREMITIES: No cyanosis or edema. NEUROLOGIC: He was awake. His speech was weak, but he answers questions appropriately. Follow commands reasonably well. He has symmetric appearing face. He had equal digital camera technician strength. No abnormal movements were seen. Gait was not testable. Sensation was symmetric to light touch. Visual brady were grossly intact. SUMMARY: This elderly man with renal failure, who has been through an ICU stay and is likely just clearing his head related to medications in ICU psychosis. Nothing focal on his exam or MRI of the brain. I think that his prognosis for recovery is good. Job ID: [id number]
[2020-01-11] MEDS: Piperacillin/Tazobactam 2.25 GM in Sodium Chloride 0.9% 100 ML IVPB SCH ×3 (04:14→21:30)
[2020-01-11] MEDS: Gemfibrozil 600 MG TAB PO SCH ×2 (06:19→17:06)
[2020-01-11] MEDS ORDERED: predniSONE 5 MG TAB PO SCH (08:00)
[2020-01-11] MEDS: Metoprolol Tartrate 50 MG TAB PO SCH ×2 (09:19→21:39)
[2020-01-11] MEDS: Aspirin 81 mg Enteric Coated Tablet PO SCH (09:19)
[2020-01-11] MEDS: Calcium Acetate 667 MG CAP PO SCH ×3 (09:19→17:06)
[2020-01-11] MEDS: Famotidine 20 MG TAB PER TUBE SCH (09:20)
[2020-01-11] MEDS: Sevelamer Carbonate 800 MG TAB PO SCH ×3 (09:20→17:06)
[2020-01-11] MEDS: Heparin 5,000 UNITS/ML VIAL SC SCH ×3 (09:20→21:41)
--- NOTE | 2020-01-11 10:55 | PDOC.HOSPP ---
- Subjective Encounter Date: 01/11/20 Encounter Time: 07:15 non-verbal Subjective: Patient seen and examined. No overnight events - Objective Vital Signs & Weight: Vital Signs (12 hours) Temp Pulse Resp BP Pulse Ox 01/11/20 07:24 98.3 F 86 19 125/58 L 93 L 01/11/20 03:30 99.3 F 83 18 130/60 94 L 01/10/20 23:10 99.6 F 81 18 127/58 L 94 L Weight Admit Weight 165 lb 12.602 oz Weight 161 lb 4 oz Most Recent Monitor Data Heart Rate from ECG 91 NIBP 133/67 NIBP BP-Mean 89 Respiration from ECG 20 SpO2 97 I&O: 01/10/20 01/11/20 01/12/20 06:59 06:59 06:59 Intake Total 1334 Output Total 271 1300 Balance 1063 -1300 Result Diagrams: 01/10/20 04:36 01/10/20 04:36 Additional Labs: Accuchecks 01/11/20 01/11/20 01/11/20 10:12 06:09 02:08 POC Glucose 228 H 208 H 179 H 01/10/20 01/10/20 01/10/20 21:52 18:16 12:06 POC Glucose 147 H 216 H 128 H Radiology Reviewed by me: Yes EKG Reviewed by me: Yes Hospitalist ROS - Review of Systems ROS unobtainable: due to mental status - Medication Medications: Active Medications Generic Name Dose Route Start Last Admin Trade Name Freq PRN Reason Stop Dose Admin Acetaminophen 650 mg 01/08/20 15:45 01/10/20 17:23 Tylenol Elixir PER TUBE 650 mg Q6H PRN Administration TEMP >/= 100.3 Amlodipine Besylate 10 mg 01/05/20 21:00 01/10/20 21:50 Norvasc PO 10 mg HS LESTER Administration Aspirin 81 mg 01/06/20 09:00 01/11/20 09:19 Ecotrin PO 81 mg DAILY LESTER Administration Atorvastatin Calcium 10 mg 01/05/20 21:00 01/10/20 21:50 Lipitor PO 10 mg HS LESTER Administration Calcium Acetate 667 mg 01/06/20 08:00 01/11/20 09:19 Phoslo PO 667 mg TID-WM LESTER Administration Doxazosin Mesylate 2 mg 01/05/20 21:00 01/10/20 21:50 Cardura PO 2 mg HS LESTER Administration Epoetin Tab-epbx 10,000 unit 01/07/20 12:45 01/10/20 13:46 Retacrit IVP 10,000 unit TuThSa LESTER Administration Famotidine 20 mg 01/09/20 09:00 01/11/20 09:20 Pepcid PER TUBE 20 mg DAILY LESTER Administration Gemfibrozil 600 mg 01/06/20 07:30 01/11/20 06:19 Lopid PO 600 mg BID-AC LESTER Administration Heparin Sodium (Porcine) 5,000 units 01/05/20 21:00 01/11/20 09:20 Heparin SC 5,000 units TID LESTER Administration Piperacillin Sod/Tazobactam 100 mls @ 200 mls/hr 01/05/20 20:00 01/11/20 04: 14 Sod 2.25 gm/ Sodium Chloride IVPB 100 mls 0400,1200,2000 LESTER Administration Insulin Human Lispro 0 units 01/05/20 15:43 01/10/20 19:14 Humalog SC 3 unit .MILD SLIDING SCALE PRN Administration Mild Correctional Scale Metoprolol Tartrate 75 mg 01/08/20 21:00 01/11/20 09:19 Lopressor PO 75 mg BID LESTER Administration Mineral Oil/White Petrolatum 0 gm 01/06/20 15:30 01/07/20 08:29 Systane Nighttime Eye Ointment EA EYE 1 each Q6H PRN Administration Dry Eyes Prednisone 10 mg 01/11/20 08:00 01/11/20 09:19 Prednisone PO 01/14/20 08:01 10 mg QAM-WM [facility] Administration Sevelamer Carbonate 800 mg 01/06/20 08:00 01/11/20 09:20 Renvela PO 800 mg TID-WM [facility] Administration - Exam General Appearance: NAD, awake alert Eye: PERRL, anicteric sclera ENT: normocephalic atraumatic, no oropharyngeal lesions Neck: supple, symmetric, no JVD, no thyromegaly Heart: RRR, no gallops, no rubs, murmur present Respiratory: CTAB, no wheezes, no rales, no ronchi Gastrointestinal: soft, non-tender, non-distended, normal bowel sounds Extremities: no cyanosis, no clubbing, no edema Skin: normal turgor, no lesions Musculoskeletal: normal tone, normal strength Psychiatric: normal affect, normal behavior Hosp A/P (1) Acute metabolic encephalopathy Code(s): G93.41 - METABOLIC ENCEPHALOPATHY Status: Acute (2) Acute respiratory failure with hypoxia Code(s): J96.01 - ACUTE RESPIRATORY FAILURE WITH HYPOXIA Status: Resolved (3) Hyperkalemia Code(s): E87.5 - HYPERKALEMIA Status: Resolved (4) Metabolic acidosis Code(s): E87.2 - ACIDOSIS Status: Resolved (5) Elevated liver function tests Code(s): R94.5 - ABNORMAL RESULTS OF LIVER FUNCTION STUDIES Status: Acute (6) Sepsis Code(s): A41.9 - SEPSIS, UNSPECIFIED ORGANISM Status: Acute Qualifiers: Sepsis type: sepsis due to unspecified organism Qualified Code(s): A41.9 - Sepsis, unspecified organism (7) Anemia Code(s): D64.9 - ANEMIA, UNSPECIFIED Status: Chronic Qualifiers: Anemia type: due to chronic kidney disease Chronic kidney disease stage: on chronic dialysis Qualified Code(s): N18.6 - End stage renal disease; D63.1 - Anemia in chronic kidney disease; D63.1 - Anemia in chronic kidney disease; Z99.2 - Dependence on renal dialysis; Z99.2 - Dependence on renal dialysis; Z99.2 - Dependence on renal dialysis; Z99.2 - Dependence on renal dialysis (8) Coronary artery disease Code(s): I25.10 - ATHSCL HEART DISEASE OF [place] CORONARY ARTERY W/O ANG PCTRS Status: Chronic (9) Diabetes mellitus type 2 in nonobese Code(s): E11.9 - TYPE 2 DIABETES MELLITUS WITHOUT COMPLICATIONS Status: Chronic (10) Dyslipidemia Code(s): E78.5 - HYPERLIPIDEMIA, UNSPECIFIED Status: Chronic (11) End stage renal disease on dialysis Code(s): N18.6 - END STAGE RENAL DISEASE; Z99.2 - DEPENDENCE ON RENAL DIALYSIS Status: Chronic (12) History of stroke Code(s): Z86.73 - PRSNL HX OF TIA (TIA), AND CEREB INFRC W/O RESID DEFICITS Status: Chronic (13) Hypertension Code(s): I10 - ESSENTIAL (PRIMARY) HYPERTENSION Status: Chronic (14) Neuropathy Code(s): G62.9 - POLYNEUROPATHY, UNSPECIFIED Status: Chronic - Plan old records reviewed/req, plan discussed w/ family, rizzo catheter, continue antibiotics, PT/OT, social problems specialist, speech therapy, DVT proph w/heparin Consults: Palliative Care 01/11/20 pt has NG tube, doubt he will pass swallow, he will need peg tube, I discussed with sister who is decision maker, agreed with peg will consult GI continue zosyn HD as per nephro palliative care discharge planning prognosis guarded
--- NOTE | 2020-01-11 11:23 | PRG ---
DATE OF SERVICE: 01/11/2020 SUBJECTIVE: A 74-year-old gentleman being seen for end-stage renal disease. The patient remained somnolent. OBJECTIVE: See above. GENERAL: The patient is resting. VITAL SIGNS: Afebrile, pulse 86, breathing 16, blood pressure 130/60. GENERAL APPEARANCE AND MENTAL STATUS: Fair. HEAD/NECK: Normocephalic. Atraumatic. EYES: EOMI. No deformity. EARS: Clear. No ulcers. NOSE: Intact. No lesions. MOUTH: Clear. No discharge. THROAT: Clear. No exudate. LUNGS: Clear. No crackles. CARDIAC: S1, S2. No rub. ABDOMEN: Benign. Bowel sounds positive. GENITALIA/RECTUM: Call absent. BACK/EXTREMITIES: Edema 0+. NEUROLOGICAL: The patient is resting. SKIN: LYMPHATICS: LABORATORY DATA: Reviewed. ASSESSMENT AND PLAN: 1. Stage 6 chronic kidney disease. No indication for dialysis. 2. Hypertension, stable. 3. Anemia, stable. 4. Altered mental status. Management per primary team. Overall prognosis is poor. I would recommend family discussion and possible palliative care evaluation. Job ID: [id number]
[2020-01-11] MEDS: HumaLOG 300 UNITS/3 ML VIAL SC PRN ×2 (12:30→17:06)
[2020-01-11 19:40] LABS: Actual Bicarbonate (HCO3a) 28.2 mEq/L (22-28); Base Excess (BEa) 4.3 mEq/L (-2.0 to +3.0); CO2 Tension 39.7 mmHg (35.0-45.0); Calcium, Ionized 1.18 mmol/L (1.12-1.30); Carboxyhemoglobin (COHb) 1.8 gm% (0.0-3.0); Hemoglobin (Hb) 9.2 g/dL (14.0-18.0); O2 Tension (PaO2) 69.7 mmHg (> 70.0); Potassium - ABG Lab 3.83 mmol/L (3.70-5.30); pH, Arterial 7.47 (7.35-7.45)
[2020-01-11 19:49] LABS: ALV-art Gradient 30.405 (0-20); Puncture Site LBRACH
--- NOTE | 2020-01-11 20:35 | RAD ---
PORTABLE AP ABDOMINAL RADIOGRAPH: 01/11/20 HISTORY: Nasogastric tube placement. COMPARISON: 01/05/2020. FINDINGS: Nasogastric tube is again noted in place with tip overlying the expected location of the proximal bod y of the stomach. Postsurgical changes related to CABG are seen. Demonstration of lung bases demonstr ate partial visualization of what appears to be a central venous catheter on the left which courses a cross the midline with tip overlying the medial right lung apex and unchanged in position. Vascular c alcifications are seen in the upper abdomen involving the thoracic and visualized abdominal aorta. Kessler rgical clips overlie the right upper quadrant. IMPRESSION: Nasogastric tube noted in place with tip overlying expected location of the proximal body of the stom ach. POS: SULEMAN
[2020-01-11] MEDS: Amlodipine 10 MG TAB PO SCH (21:34)
[2020-01-11] MEDS: Atorvastatin Calcium 10 MG TAB PO SCH (21:41)
[2020-01-11] MEDS ORDERED: Doxazosin 2 MG TAB PO SCH (21:45)
[2020-01-11] MEDS: Doxazosin 2 MG TAB PO SCH ×2 (21:55→23:31)
--- NOTE | 2020-01-11 22:20 | CON ---
DATE OF CONSULTATION: 01/11/2020 CHIEF COMPLAINT: Somnolence and inability to take nutrition by mouth. HISTORY OF PRESENT ILLNESS: Mr. Keller is a 74-year-old man, who has been on chronic hemodialysis for end-stage renal disease. He was brought to the emergency room after he had been found down at home. He had been missing from dialysis for few days and his family called and the police did a wellness check on him and found that he was unresponsive. The patient was intubated and underwent synchronized cardioversion. He was admitted to the ICU and ultimately was extubated. He has remained somnolent. He has had some improvement in his mental status and that he wake up and groan, and at some point communicated his name to other providers. He has been evaluated by Neurology and no focal stroke was identified. He was thought to have metabolic encephalopathy. The patient was independent and completely functional prior to this episode. He has remained somnolent and has been unable to take oral feeding safely. He has had an NG tube and is receiving feeds through the NG tube, which he has tolerated well to this point. PAST MEDICAL HISTORY: End-stage renal disease on hemodialysis, diabetes mellitus type 2, coronary artery disease, history of prior stroke, hypertension, and hyperlipidemia. PAST SURGICAL HISTORY: Shoulder surgery, coronary artery bypass graft, cholecystectomy. FAMILY HISTORY: Negative for GI malignancy. SOCIAL HISTORY: No alcohol or drugs. He quit smoking decades ago. The history is from the chart as the patient is unable to contribute to this and he does not have family with him currently. ALLERGIES: NO KNOWN DRUG ALLERGIES. MEDICATIONS: Currently include: 1. Amlodipine. 2. Aspirin. 3. Atorvastatin. 4. Calcium acetate. 5. Epoetin. 6. Famotidine. 7. Gemfibrozil. 8. Heparin subcutaneously. 9. Metoprolol. 10. Zosyn. 11. Prednisone 10 mg q.a.m. 12. Renvela. REVIEW OF SYSTEMS: Unobtainable. PHYSICAL EXAMINATION: VITAL SIGNS: Temperature is 98.9, pulse 75, blood pressure 131/62. GENERAL: He will wake up and groan when I talk to him and stimulate him. However, he is unable to respond in any meaningful way currently. HEENT: His eyes have no scleral icterus. Oropharynx is clear without lesions. He has an NG tube in place. No cervical or supraclavicular lymphadenopathy. LUNGS: Clear to auscultation bilaterally. HEART: Regular rate and rhythm without murmur. ABDOMEN: Soft, nontender, and nondistended. Bowel sounds present. EXTREMITIES: No lower extremity edema. LABORATORY DATA: White blood cell count 12.8, hemoglobin 8.1, platelets 167. INR was 2.0 on 01/05/2020. Creatinine 6.28. BUN is 77. He did have an elevated troponin back on 01/06 to 2.1. Bilirubin 0.6, AST 94, ALT 55, alkaline phosphatase 64, albumin 3.0. His labs were from 01/05. IMPRESSION: 1. Metabolic encephalopathy. 2. End-stage renal disease, on hemodialysis. 3. Anemia secondary to chronic renal disease most likely. 4. Elevated troponins earlier in the hospital stay thought to be due to demand ischemia by Cardiology evaluation. 5. Respiratory failure on admission, resolved and the patient is breathing well on his own now. RECOMMENDATIONS: 1. He is tolerating NG tube feeds well currently. 2. We will plan for EGD with percutaneous endoscopic gastrostomy tube placement once we are able to get consent. 3. I have called the patient's sister this evening, but she is at work and not answering her phone and will try again tomorrow regarding consent. 4. We will need to recheck his INR. This was elevated at 2.0 on presentation. There are no updated coags. 5. We would hold the heparin the morning of procedure when it is done, possibly Thursday. Job ID: [id number]
[2020-01-12] MEDS: Piperacillin/Tazobactam 2.25 GM in Sodium Chloride 0.9% 100 ML IVPB SCH ×3 (03:58→22:02)
[2020-01-12 04:55] LABS: INR-International Normal Ratio 1.1
[2020-01-12] MEDS: HumaLOG 300 UNITS/3 ML VIAL SC PRN ×2 (07:27→18:25)
[2020-01-12] MEDS ORDERED: Ondansetron PF 4 MG/2 ML Vial IVP PRN (07:36)
[2020-01-12] MEDS ORDERED: Metoclopramide HCl 10 MG/2 ML VIAL IVP PRN (07:36)
[2020-01-12] MEDS ORDERED: Acetaminophen 650 MG Suppository PR PRN (07:36)
[2020-01-12] MEDS ORDERED: Artificial Tears 18 DROP/0.9 ML EA EYE PRN (07:36)
[2020-01-12] MEDS ORDERED: Sodium Chloride 0.65% Nasal 44 ML BOT EA NARE PRN (07:36)
[2020-01-12] MEDS ORDERED: Bisacodyl 10 MG SUPP PR PRN (07:36)
[2020-01-12] MEDS ORDERED: hydrALAZINE 20 MG/ML VIAL SLOW IVP PRN (07:36)
[2020-01-12] MEDS ORDERED: Senokot S 8.6-50 MG TAB PER TUBE PRN (07:36)
[2020-01-12 08:10] LABS: #Eosinphils 0.4 thou/uL (0.0-0.7); #Lymphocytes 0.8 thou/uL (1.20-3.40); #Monocytes 0.6 thou/uL (0.11-0.59); #Neutrophils 8.5 thou/uL (1.40-6.50); %Basophils 0.2 % (0.0-1.0); %Eosinophils 3.7 % (0.0-10.0); %Lymphocytes 7.3 % (21.0-51.0); %Monocytes 6.1 % (0.0-10.0); %Neutrophils 82.8 % (42.0-75.0); Hemoglobin 7.5 g/dL (14.0-18.0); Mean Corpuscular HGB CONC 33.7 g/dL (32.0-36.0); Mean Corpuscular Hemoglobin 33.4 pg (27.0-31.0); Mean Corpuscular Volume 98.9 fL (78.0-98.0); Platelet Count 163 thou/uL (130-400); RBC Distribution Width 13.8 % (11.5-14.5); Red Blood Cell (RBC) Count 2.24 mill/uL (4.70-6.10); White Blood Cell (WBC) Count 10.3 thou/uL (4.8-10.8)
[2020-01-12 08:25] LABS: Anion Gap 15 mmol/L (10-20); BUN (Urea Nitrogen) 62 mg/dL (8.4-25.7); Calc. Creatinine Clearance 13 mL/min (70-130); Calcium 8.8 mg/dL (7.8-10.44); Carbon Dioxide 27 mmol/L (23-31); Chloride 103 mmol/L (98-107); Estimated GFR-MDRD 11; Glucose 242 mg/dL (83-110); Potassium 3.6 mmol/L (3.5-5.1); Sodium 141 mmol/L (136-145)
[2020-01-12] MEDS: Famotidine 20 MG TAB PER TUBE SCH (12:07)
[2020-01-12] MEDS: Metoprolol Tartrate 50 MG TAB PER TUBE SCH ×2 (12:08→22:09)
[2020-01-12] MEDS: Heparin 5,000 UNITS/ML VIAL SC SCH ×3 (12:09→22:04)
[2020-01-12] MEDS: Calcium Acetate 667 MG CAP PER TUBE SCH ×3 (12:09→17:05)
[2020-01-12] MEDS: predniSONE 5 MG TAB PER TUBE SCH (12:09)
[2020-01-12] MEDS: Aspirin 325 MG TAB PER TUBE SCH (12:09)
[2020-01-12] MEDS: Gemfibrozil 600 MG TAB PO SCH (12:34)
--- NOTE | 2020-01-12 12:54 | PDOC.HOSPP ---
- Subjective Encounter Date: 01/12/20 Encounter Time: 07:15 Subjective: Patient seen and examined. No overnight events - Objective Vital Signs & Weight: Vital Signs (12 hours) Temp Pulse Resp BP Pulse Ox 01/12/20 12:05 98.5 F 83 20 140/62 94 L 01/12/20 07:37 98.4 F 74 13 119/58 L 92 L 01/12/20 03:36 98.4 F 73 16 132/63 92 L Weight Admit Weight 165 lb 12.602 oz Weight 161 lb 4 oz Most Recent Monitor Data Heart Rate from ECG 91 NIBP 133/67 NIBP BP-Mean 89 Respiration from ECG 20 SpO2 97 I&O: 01/11/20 01/12/20 01/13/20 06:59 06:59 06:59 Intake Total 1733 Output Total 1300 Balance -1300 1733 Result Diagrams: 01/12/20 07:55 01/12/20 07:55 Additional Labs: Accuchecks 01/12/20 01/12/20 01/12/20 10:11 05:45 02:42 POC Glucose 113 H 231 H 222 H 01/11/20 01/11/20 01/11/20 22:09 19:12 16:36 POC Glucose 231 H 225 H 267 H 01/11/20 14:20 POC Glucose 247 H Hospitalist ROS - Review of Systems ROS unobtainable: due to mental status - Medication Medications: Active Medications Generic Name Dose Route Start Last Admin Trade Name Freq PRN Reason Stop Dose Admin Acetaminophen 650 mg 01/08/20 15:45 01/10/20 17:23 Tylenol Elixir PER TUBE 650 mg Q6H PRN Administration TEMP >/= 100.3 Aspirin 325 mg 01/12/20 09:00 01/12/20 12:09 Aspirin PER TUBE 325 mg DAILY LESTER Administration Calcium Acetate 667 mg 01/12/20 08:00 01/12/20 12:09 Phoslo PER TUBE 667 mg TID-WM LESTER Administration Epoetin Tab-epbx 10,000 unit 01/07/20 12:45 01/10/20 13:46 Retacrit IVP 10,000 unit TuThSa LESTER Administration Famotidine 20 mg 01/09/20 09:00 01/12/20 12:07 Pepcid PER TUBE 20 mg DAILY LESTER Administration Heparin Sodium (Porcine) 5,000 units 01/05/20 21:00 01/12/20 12:09 Heparin SC 5,000 units TID LESTER Administration Piperacillin Sod/Tazobactam 100 mls @ 200 mls/hr 01/05/20 20:00 01/12/20 03: 58 Sod 2.25 gm/ Sodium Chloride IVPB 100 mls 0400,1200,2000 LESTER Administration Insulin Human Lispro 0 units 01/05/20 15:43 01/12/20 07:27 Humalog SC 3 unit .MILD SLIDING SCALE PRN Administration Mild Correctional Scale Metoprolol Tartrate 75 mg 01/12/20 09:00 01/12/20 12:08 Lopressor PER TUBE 75 mg BID LESTER Administration Mineral Oil/White Petrolatum 0 gm 01/06/20 15:30 01/07/20 08:29 Systane Nighttime Eye Ointment EA EYE 1 each Q6H PRN Administration Dry Eyes Prednisone 10 mg 01/12/20 08:00 01/12/20 12:09 Prednisone PER TUBE 01/14/20 08:01 10 mg QAM-WM LESTER Administration Sodium Chloride 10 ml 01/05/20 17:30 01/11/20 21:42 Flush - Normal Saline IVF 10 ml PRN PRN Administration Saline Flush - Exam General Appearance: NAD, awake alert Eye: PERRL, anicteric sclera ENT: normocephalic atraumatic, no oropharyngeal lesions ENT - other findings: NG tube in place Neck: supple, symmetric, no JVD, no thyromegaly Heart: RRR, no murmur, no gallops, no rubs Respiratory: CTAB, no wheezes, no rales, no ronchi Gastrointestinal: soft, non-tender, non-distended, normal bowel sounds Extremities: no cyanosis, no clubbing Skin: normal turgor, no lesions Neurological: no focal deficits Musculoskeletal: normal tone, normal strength Psychiatric: normal affect, normal behavior Hosp A/P (1) Acute metabolic encephalopathy Code(s): G93.41 - METABOLIC ENCEPHALOPATHY Status: Acute (2) Acute respiratory failure with hypoxia Code(s): J96.01 - ACUTE RESPIRATORY FAILURE WITH HYPOXIA Status: Resolved (3) Hyperkalemia Code(s): E87.5 - HYPERKALEMIA Status: Resolved (4) Metabolic acidosis Code(s): E87.2 - ACIDOSIS Status: Resolved (5) Elevated liver function tests Code(s): R94.5 - ABNORMAL RESULTS OF LIVER FUNCTION STUDIES Status: Acute (6) Sepsis Code(s): A41.9 - SEPSIS, UNSPECIFIED ORGANISM Status: Acute Qualifiers: Sepsis type: sepsis due to unspecified organism Qualified Code(s): A41.9 - Sepsis, unspecified organism (7) Anemia Code(s): D64.9 - ANEMIA, UNSPECIFIED Status: Chronic Qualifiers: Anemia type: due to chronic kidney disease Chronic kidney disease stage: on chronic dialysis Qualified Code(s): N18.6 - End stage renal disease; D63.1 - Anemia in chronic kidney disease; D63.1 - Anemia in chronic kidney disease; Z99.2 - Dependence on renal dialysis; Z99.2 - Dependence on renal dialysis; Z99.2 - Dependence on renal dialysis; Z99.2 - Dependence on renal dialysis (8) Coronary artery disease Code(s): I25.10 - ATHSCL HEART DISEASE OF [place] CORONARY ARTERY W/O ANG PCTRS Status: Chronic (9) Diabetes mellitus type 2 in nonobese Code(s): E11.9 - TYPE 2 DIABETES MELLITUS WITHOUT COMPLICATIONS Status: Chronic (10) Dyslipidemia Code(s): E78.5 - HYPERLIPIDEMIA, UNSPECIFIED Status: Chronic (11) End stage renal disease on dialysis Code(s): N18.6 - END STAGE RENAL DISEASE; Z99.2 - DEPENDENCE ON RENAL DIALYSIS Status: Chronic (12) History of stroke Code(s): Z86.73 - PRSNL HX OF TIA (TIA), AND CEREB INFRC W/O RESID DEFICITS Status: Chronic (13) Hypertension Code(s): I10 - ESSENTIAL (PRIMARY) HYPERTENSION Status: Chronic (14) Neuropathy Code(s): G62.9 - POLYNEUROPATHY, UNSPECIFIED Status: Chronic - Plan old records reviewed/req, continue antibiotics 01/11/20 pt has NG tube, doubt he will pass swallow, he will need peg tube, I discussed with sister who is decision maker, agreed with peg will consult GI continue zosyn HD as per nephro palliative care discharge planning prognosis guarded 01/12/20 continue HD will need peg continue zosyn supportive care his alertness is fluctuating
--- NOTE | 2020-01-12 13:58 | PRG ---
DATE OF SERVICE: 01/12/2020 SUBJECTIVE: A 74-year-old gentleman being seen for end-stage renal disease. The patient denied nausea, vomiting, or chest pain. OBJECTIVE: CONSTITUTIONAL: The patent is awake and alert. VITAL SIGNS: Afebrile, pulse 75, breathing 16, and blood pressure 119/58. GENERAL APPEARANCE AND MENTAL STATUS: Fair. HEAD/NECK: Normocephalic. Atraumatic. EYES: EOMI. No deformity. EARS: Clear. No ulcers. NOSE: Intact. No lesions. MOUTH: Clear. No discharge. THROAT: Clear. No exudate. LUNGS: Clear. No crackles. CARDIAC: S1, S2. No rub. ABDOMEN: Benign. Bowel sounds positive. GENITALIA/RECTUM: Call absent. BACK/EXTREMITIES: Edema 0+. NEUROLOGICAL: Alert and motor intact. SKIN: LYMPHATICS: LABORATORY DATA: Hemoglobin is 7.5. ASSESSMENT AND PLAN: 1. Stage 6 chronic kidney disease. Plan dialysis. 2. Hypertension, stable. 3. Anemia. We would recommend transfusion with dialysis. Job ID: [id number]
[2020-01-12] MEDS: EPOETIN ALFA-EPBX (ESRD) 10,000 UNIT/ML VIAL IVP SCH (14:08)
--- NOTE | 2020-01-12 15:24 | PDOC.PALCO ---
Palliative Care Consult - Consult Details Requesting Physician: Dr Stringer Reason for Consult: goals of care, complex decision-making Family Members Present: None - Pertinent HPI 74 year old male who lives independently and did not make dialysis appointments. Dialysis notified family who in turn called police to perform a wellness check. Patient was found on the floor, unresponsive with emesis around mouth / GCS 4. Patient was intubated and synchronized cardioversion and transported to [facility] emergency room for evaluation. He was admitted for acute encephalopathy secondary to metabolic acidosis due to missed hemodialysis , respiratory acidosis, hyperkalemia, Diabetes, Troponin, anemia, leukocytosis. Patient has a sister who in the past has been his decision maker, no MPOA on file. - Pertinent PMH CAD, HTN, Renal failure requiring dialysis, CVA/TIA, Anemia, Diabetes - Social History Smoking: no tobacco exposure Alcohol Use: none Drug Use History: none Living Situation: independent - Medications MAR Reviewed: Yes - Allergies Allergies/Adverse Reactions: Allergies Allergy/AdvReac Type Severity Reaction Status Date / Time No Known Allergies Allergy Verified 06/25/18 15:47 - Subjective Lethargic, visiting with Palliative Care RN. Aware of location and year. Drifts back to sleep state and did not arouse for remainder of assessment. Pronounced weakness. Unable to perform an adequate ROS due to intermittent altered mental state and lethargy. Does not appear to be in distress or uncomfortable - ROS Non Response: due to mental status - Objective Vital Signs: Vital Signs - Most Recent Temp Pulse Resp BP Pulse Ox 98.5 F 83 20 140/66 94 L 01/12/20 12:05 01/12/20 12:05 01/12/20 12:05 01/12/20 13:21 01/12/20 12:05 Palliative Performance Scale: 30 - Physical Exam Constitutional: emaciated, encephalitic, ill appearing HEENT: moist MMs, sclera anicteric Respiratory: no wheezing, unlabored breathing Cardiovascular: RRR Gastrointestinal: soft, non-tender, positive bowel sounds Genitourinary: incontinent Musculoskeletal: pulses present, edema present Skin: cap refill <2 seconds, fragile Deviation from normal: Oreinted to self/place/year. Lethargic - Problem List (1) Palliative care encounter Code(s): Z51.5 - ENCOUNTER FOR PALLIATIVE CARE Current Visit: Yes Status: Acute (2) Acute metabolic encephalopathy Code(s): G93.41 - METABOLIC ENCEPHALOPATHY Current Visit: Yes Status: Acute (3) Acute respiratory failure with hypoxia Code(s): J96.01 - ACUTE RESPIRATORY FAILURE WITH HYPOXIA Current Visit: Yes Status: Resolved (4) Coronary artery disease Code(s): I25.10 - ATHSCL HEART DISEASE OF [place] CORONARY ARTERY W/O ANG PCTRS Current Visit: No Status: Chronic (5) Diabetes mellitus type 2 in nonobese Code(s): E11.9 - TYPE 2 DIABETES MELLITUS WITHOUT COMPLICATIONS Current Visit : No Status: Chronic (6) End stage renal disease on dialysis Code(s): N18.6 - END STAGE RENAL DISEASE; Z99.2 - DEPENDENCE ON RENAL DIALYSIS Current Visit: No Status: Chronic (7) Hypertension Code(s): I10 - ESSENTIAL (PRIMARY) HYPERTENSION Current Visit: No Status: Chronic - Plan/Recommendations Plan: Patient pending possible PEG placement secondary to dysphagia. Currently with NG to nare for nutrition. Weakness. Patient has two siblings, Ronnie and Neda who help with decisions. Neda and Brandon (patient) had no children. Patient will be unable to return to independent living situation secondary to confusion, weakness and needing higher level of care. Hilary Castro RN to reach out to patient sister Neda and attempt to establish a family meeting to discuss mcc plan and possibilities as patient is not currently able to return to independent lifestyle. Meet to discuss short and halfway "Goal of Care" and revisit resuscitation status. Please also refer to Palliative Care RN notes in note section. [40] minutes spent on this encounter with >50% of the time in counseling and coordination of care. Thank you for this very appropriate consult.
--- NOTE | 2020-01-12 19:08 | PRG ---
DATE OF SERVICE: 01/12/2020 SUBJECTIVE: Mr. Keller is much more alert this afternoon. He has become progressively more alert as the day has progressed. He is awake and responsive. He tells me his name and he knows that he is in the hospital and he got the year wrong, but this made marked progression compared to yesterday. I set him up and then gave him an ice chip, which he chewed up and swallowed without any difficulty apparent. He has no abdominal pain. He has good strength in his hands and can lift his arms. OBJECTIVE: VITAL SIGNS: Temperature is 98.8, pulse 75, and blood pressure 135/60. GENERAL: He is in no acute distress. He is awake and oriented to his name and to that he is in hospital. Not oriented to the year. He has an NG tube in place and is tolerating his feeds well. He is able to manipulate his tongue and stick it straight out into the roof of his mouth and swallow. He tolerated an ice chip without any problems. He has no coughing or gurgling. LUNGS: Clear to auscultation bilaterally. HEART: Regular rate and rhythm without murmur. ABDOMEN: Soft, nontender, and nondistended. Bowel sounds are present. EXTREMITIES: No lower extremity edema. IMPRESSION: 1. Metabolic encephalopathy. 2. Oropharyngeal dysphagia. He is tolerating NG tube feeds well. He has been too somnolent to safely swallow. For now, his dysphagia appears to be improving and we will request a speech pathology evaluation tomorrow before proceeding with PEG tube placement. In the meantime, we will continue the NG tube feeds. RECOMMENDATIONS: 1. Speech path to evaluate his swallowing status tomorrow. 2. Monitor progression of his encephalopathy as he appears to be showing rapid improvement. 3. We can proceed with PEG tube placement if the patient fails to continue to improve and safely swallow. Job ID: [id number]
[2020-01-12] MEDS: Amlodipine 10 MG TAB PER TUBE SCH (22:07)
[2020-01-12] MEDS: Doxazosin 2 MG TAB PER TUBE SCH (22:08)
[2020-01-12] MEDS: Atorvastatin Calcium 10 MG TAB PER TUBE SCH (22:08)
[2020-01-13] MEDS: Piperacillin/Tazobactam 2.25 GM in Sodium Chloride 0.9% 100 ML IVPB SCH ×3 (04:58→21:14)
[2020-01-13 05:09] LABS: #Eosinphils 0.2 thou/uL (0.0-0.7); #Lymphocytes 1.4 thou/uL (1.20-3.40); #Monocytes 1.2 thou/uL (0.11-0.59); #Neutrophils 10.8 thou/uL (1.40-6.50); %Basophils 0.1 % (0.0-1.0); %Eosinophils 1.4 % (0.0-10.0); %Lymphocytes 10.4 % (21.0-51.0); %Monocytes 8.6 % (0.0-10.0); %Neutrophils 79.4 % (42.0-75.0); Hemoglobin 8.8 g/dL (14.0-18.0); Mean Corpuscular HGB CONC 32.5 g/dL (32.0-36.0); Mean Corpuscular Hemoglobin 32.1 pg (27.0-31.0); Mean Corpuscular Volume 98.7 fL (78.0-98.0); Mean Platelet Volume 10.7 fL (7.4-10.4); Platelet Count 227 thou/uL (130-400); RBC Distribution Width 13.8 % (11.5-14.5); Red Blood Cell (RBC) Count 2.73 mill/uL (4.70-6.10); White Blood Cell (WBC) Count 13.6 thou/uL (4.8-10.8)
[2020-01-13 05:27] LABS: ALT (SGPT) 39 U/L (8-55); AST (SGOT) 18 U/L (5-34); Albumin 2.8 g/dL (3.4-4.8); Alkaline Phosphatase 105 U/L (40-110); Anion Gap 14 mmol/L (10-20); BUN (Urea Nitrogen) 42 mg/dL (8.4-25.7); Bilirubin, Total 0.5 mg/dL (0.2-1.2); Calc. Creatinine Clearance 17 mL/min (70-130); Calcium 9.2 mg/dL (7.8-10.44); Carbon Dioxide 28 mmol/L (23-31); Chloride 100 mmol/L (98-107); Estimated GFR-MDRD 16; Globulin 3.1 g/dL (2.4-3.5); Glucose 192 mg/dL (83-110); Phosphorus 2.4 mg/dL (2.3-4.7); Potassium 4.2 mmol/L (3.5-5.1); Protein, Total 5.9 g/dL (5.8-8.1); Sodium 138 mmol/L (136-145)
--- NOTE | 2020-01-13 08:15 | RAD ---
KUB: INDICATION: Abdominal tube placement. COMPARISON: Prior exam dated 01/11/2020. FINDINGS: The left internal jugular central venous catheter coiled in the superior vena cava projecting into th e right internal jugular vein is stable-appearing. Gastric catheter projects in the region of the ca rdia. Lung bases are clear. Bowel gas pattern is unobstructed. IMPRESSION: 1. Gastric catheter projecting in the region of gastric cardia. Recommend enhancement. 2. Left internal jugular central venous catheter is stable appearing. POS: BH
[2020-01-13] MEDS: Calcium Acetate 667 MG CAP PER TUBE SCH ×3 (10:06→16:33)
[2020-01-13] MEDS: Metoprolol Tartrate 50 MG TAB PER TUBE SCH ×2 (10:06→21:15)
[2020-01-13] MEDS: predniSONE 5 MG TAB PER TUBE SCH (10:06)
[2020-01-13] MEDS: Famotidine 20 MG TAB PER TUBE SCH (10:07)
[2020-01-13] MEDS: Heparin 5,000 UNITS/ML VIAL SC SCH ×3 (10:07→21:17)
[2020-01-13] MEDS: Aspirin 325 MG TAB PER TUBE SCH (10:07)
--- NOTE | 2020-01-13 10:29 | PRG ---
DATE OF SERVICE: 01/13/2020 SUBJECTIVE: A 74-year-old male is being seen for end-stage renal disease. The patient denied any nausea, vomiting, or chest pain. OBJECTIVE: GENERAL: The patient is awake and alert. VITAL SIGNS: Afebrile, pulse 81, breathing 16, blood pressure 130/70. GENERAL APPEARANCE AND MENTAL STATUS: Fair. HEAD/NECK: Normocephalic. Atraumatic. EYES: EOMI. No deformity. EARS: Clear. No ulcers. NOSE: Intact. No lesions. MOUTH: Clear. No discharge. THROAT: Clear. No exudate. LUNGS: Clear. No crackles. CARDIAC: S1, S2. No rub. ABDOMEN: Benign. Bowel sounds positive. GENITALIA/RECTUM: Call absent. BACK/EXTREMITIES: Edema 0+. NEUROLOGICAL: Alert and motor intact. LABORATORY DATA: Reviewed. ASSESSMENT: 1. Stage 6 chronic kidney disease. Plan dialysis. 2. Hypertension, stable. 3. Anemia, stable. 4. Medication based on GFR appropriate. Job ID: [id number]
--- NOTE | 2020-01-13 10:40 | PDOC.HOSPP ---
- Subjective Encounter Date: 01/13/20 Encounter Time: 07:10 Subjective: Patient seen and examined. No overnight events - Objective Vital Signs & Weight: Vital Signs (12 hours) Temp Pulse Resp Pulse Ox 01/13/20 04:00 98.4 F 81 18 90 L 01/13/20 00:00 98 F 75 18 90 L Weight Admit Weight 165 lb 12.602 oz Weight 153 lb Most Recent Monitor Data Heart Rate from ECG 91 NIBP 133/67 NIBP BP-Mean 89 Respiration from ECG 20 SpO2 97 I&O: 01/12/20 01/13/20 01/14/20 06:59 06:59 06:59 Intake Total 1733 310 Output Total 2600 Balance 1733 -2290 Result Diagrams: 01/13/20 04:47 01/13/20 04:47 Additional Labs: Accuchecks 01/13/20 01/13/20 01/13/20 10:00 06:15 02:17 POC Glucose 187 H 192 H 195 H 01/12/20 01/12/20 01/12/20 22:35 17:39 14:07 POC Glucose 217 H 259 H 160 H 01/12/20 10:11 POC Glucose 113 H Radiology Reviewed by me: Yes EKG Reviewed by me: Yes Hospitalist ROS - Review of Systems ROS unobtainable: due to mental status - Medication Medications: Active Medications Generic Name Dose Route Start Last Admin Trade Name Freq PRN Reason Stop Dose Admin Acetaminophen 650 mg 01/08/20 15:45 01/10/20 17:23 Tylenol Elixir PER TUBE 650 mg Q6H PRN Administration TEMP >/= 100.3 Amlodipine Besylate 10 mg 01/12/20 21:00 01/12/20 22:07 Norvasc PER TUBE 10 mg HS [facility] Administration Aspirin 325 mg 01/12/20 09:00 01/13/20 10:07 Aspirin PER TUBE 325 mg DAILY [facility] Administration Atorvastatin Calcium 10 mg 01/12/20 21:00 01/12/20 22:08 Lipitor PER TUBE 10 mg HS [facility] Administration Calcium Acetate 667 mg 01/12/20 08:00 01/13/20 10:06 Phoslo PER TUBE 667 mg TID-WM [facility] Administration Doxazosin Mesylate 2 mg 01/12/20 21:00 01/12/20 22:08 Cardura PER TUBE 2 mg HS [facility] Administration Epoetin Tab-epbx 10,000 unit 01/07/20 12:45 01/12/20 14:08 Retacrit IVP 10,000 unit TuThSa [facility] Administration Famotidine 20 mg 01/09/20 09:00 01/13/20 10:07 Pepcid PER TUBE 20 mg DAILY [facility] Administration Heparin Sodium (Porcine) 5,000 units 01/05/20 21:00 01/13/20 10:07 Heparin SC 5,000 units TID [facility] Administration Piperacillin Sod/Tazobactam 100 mls @ 200 mls/hr 01/05/20 20:00 01/13/20 04: 58 Sod 2.25 gm/ Sodium Chloride IVPB 100 mls 0400,1200,2000 [facility] Administration Insulin Human Lispro 0 units 01/05/20 15:43 01/12/20 18:25 Humalog SC 4 unit .MILD SLIDING SCALE PRN Administration Mild Correctional Scale Metoprolol Tartrate 75 mg 01/12/20 09:00 01/13/20 10:06 Lopressor PER TUBE 75 mg BID [facility] Administration Mineral Oil/White Petrolatum 0 gm 01/06/20 15:30 01/07/20 08:29 Systane Nighttime Eye Ointment EA EYE 1 each Q6H PRN Administration Dry Eyes Prednisone 10 mg 01/12/20 08:00 01/13/20 10:06 Prednisone PER TUBE 01/14/20 08:01 10 mg QAM-WM [facility] Administration Sodium Chloride 10 ml 01/05/20 17:30 01/11/20 21:42 Flush - Normal Saline IVF 10 ml PRN PRN Administration Saline Flush - Exam General Appearance: NAD, awake alert Eye: PERRL, anicteric sclera ENT: normocephalic atraumatic, no oropharyngeal lesions Neck: supple, symmetric, no JVD, no thyromegaly Heart: RRR, no murmur, no gallops, no rubs Respiratory: CTAB, no wheezes, no rales, no ronchi Gastrointestinal: soft, non-tender, non-distended, normal bowel sounds Extremities: no cyanosis, no clubbing Skin: normal turgor, no lesions Neurological: no focal deficits Musculoskeletal: normal tone, normal strength Psychiatric: normal affect, normal behavior Hosp A/P (1) Acute metabolic encephalopathy Code(s): G93.41 - METABOLIC ENCEPHALOPATHY Status: Acute (2) Acute respiratory failure with hypoxia Code(s): J96.01 - ACUTE RESPIRATORY FAILURE WITH HYPOXIA Status: Resolved (3) Hyperkalemia Code(s): E87.5 - HYPERKALEMIA Status: Resolved (4) Metabolic acidosis Code(s): E87.2 - ACIDOSIS Status: Resolved (5) Elevated liver function tests Code(s): R94.5 - ABNORMAL RESULTS OF LIVER FUNCTION STUDIES Status: Acute (6) Sepsis Code(s): A41.9 - SEPSIS, UNSPECIFIED ORGANISM Status: Acute Qualifiers: Sepsis type: sepsis due to unspecified organism Qualified Code(s): A41.9 - Sepsis, unspecified organism (7) Anemia Code(s): D64.9 - ANEMIA, UNSPECIFIED Status: Chronic Qualifiers: Anemia type: due to chronic kidney disease Chronic kidney disease stage: on chronic dialysis Qualified Code(s): N18.6 - End stage renal disease; D63.1 - Anemia in chronic kidney disease; D63.1 - Anemia in chronic kidney disease; Z99.2 - Dependence on renal dialysis; Z99.2 - Dependence on renal dialysis; Z99.2 - Dependence on renal dialysis; Z99.2 - Dependence on renal dialysis (8) Coronary artery disease Code(s): I25.10 - ATHSCL HEART DISEASE OF [place] CORONARY ARTERY W/O ANG PCTRS Status: Chronic (9) Diabetes mellitus type 2 in nonobese Code(s): E11.9 - TYPE 2 DIABETES MELLITUS WITHOUT COMPLICATIONS Status: Chronic (10) Dyslipidemia Code(s): E78.5 - HYPERLIPIDEMIA, UNSPECIFIED Status: Chronic (11) End stage renal disease on dialysis Code(s): N18.6 - END STAGE RENAL DISEASE; Z99.2 - DEPENDENCE ON RENAL DIALYSIS Status: Chronic (12) History of stroke Code(s): Z86.73 - PRSNL HX OF TIA (TIA), AND CEREB INFRC W/O RESID DEFICITS Status: Chronic (13) Hypertension Code(s): I10 - ESSENTIAL (PRIMARY) HYPERTENSION Status: Chronic (14) Neuropathy Code(s): G62.9 - POLYNEUROPATHY, UNSPECIFIED Status: Chronic - Plan old records reviewed/req, continue antibiotics 01/11/20 pt has NG tube, doubt he will pass swallow, he will need peg tube, I discussed with sister who is decision maker, agreed with peg will consult GI, continue zosyn, HD as per nephro, palliative care discharge planning prognosis guarded 01/12/20 continue HD will need peg continue zosyn supportive care his alertness is fluctuating 01/13/20 continue zosyn today speech therapy and based on that will decide if peg tube needed or note overall stable
--- NOTE | 2020-01-13 13:24 | CON ---
DATE OF CONSULTATION: 01/13/2020 SUBJECTIVE: Mr. Keller's status is unchanged. He continues to be confused. He is slow to converse. OBJECTIVE: VITAL SIGNS: Blood pressure 139/69, pulse 84, and temperature 97.7. LUNGS: Clear to auscultation. HEART: Regular rate and rhythm. ABDOMEN: Soft, nontender, and nondistended. EXTREMITIES: No edema. PERTINENT LABORATORY DATA: Hemoglobin 8.8. Creatinine 3.65. DIAGNOSTIC DATA: Echo Doppler dated 01/07/2020, LVEF 45% to 50% with diastolic dysfunction. IMPRESSION: 1. Mental status change. 2. Respiratory failure. 3. End-stage renal disease. 4. Mildly elevated troponin. 5. Mild cardiomyopathy. RECOMMENDATIONS: At this point, we will continue with conservative therapy. The patient's LVEF is 45% to 50%. I would like his metabolic encephalopathy to improve prior to proceeding with further studies such as a noninvasive stress study. Otherwise, from my standpoint, I have no further recommendations. We will continue amlodipine 10 mg daily in addition to aspirin, atorvastatin, and beta-venice therapy. PLAN: Plan is to follow up in the next 2 to 3 weeks. Please re-consult, if needed. Job ID: [id number]
--- NOTE | 2020-01-13 15:10 | PRG ---
DATE OF SERVICE: 01/13/2020 SUBJECTIVE: Mr. Keller is a little less interactive today, but still awake and able to state his name. He had speech path evaluation today, however, still with his depressed mental status. He is not ready for oral intake. OBJECTIVE: VITAL SIGNS: Temperature 97.7, pulse 74, blood pressure 139/69. GENERAL: He is in no acute distress. Oriented to his name and does answer some questions appropriately. LUNGS: Clear to auscultation bilaterally. HEART: Regular rate and rhythm. No murmur. ABDOMEN: Soft, nontender, nondistended. Bowel sounds are present. EXTREMITIES: No lower extremity edema. LABORATORY DATA: White blood cell count 13.6, hemoglobin 8.8, platelets 227. INR 1.1. Creatinine 3.65. IMPRESSION: 1. Metabolic encephalopathy. 2. Oropharyngeal dysphagia secondary to #1. With his improvement in his mental status, his dysphagia also seems to be improving. 3. End-stage renal disease, on hemodialysis. 4. Mild cardiomyopathy and elevated troponin earlier this hospital stay. RECOMMENDATIONS: 1. We will continue to monitor his mental status and speech path. We will continue to evaluate. 2. We will follow up on Thursday to reassess. Please call Dr. Palomnio, if needed over the weekend. 3. Recommend continuing with NG tube feeds in the meantime. Job ID: [id number]
[2020-01-13] MEDS: Doxazosin 2 MG TAB PER TUBE SCH (21:15)
[2020-01-13] MEDS: Atorvastatin Calcium 10 MG TAB PER TUBE SCH (21:16)
[2020-01-13] MEDS: Amlodipine 10 MG TAB PER TUBE SCH (21:16)
[2020-01-14] MEDS: Piperacillin/Tazobactam 2.25 GM in Sodium Chloride 0.9% 100 ML IVPB SCH ×2 (04:22→13:59)
--- NOTE | 2020-01-14 12:10 | PRG ---
DATE OF SERVICE: 01/14/2020 SUBJECTIVE: A 74-year-old gentleman being seen for end-stage renal disease. The patient is resting. OBJECTIVE: VITAL SIGNS: Afebrile, pulse 75, breathing 16, blood pressure was 149/70. CONSTITUTIONAL: Awake, alert, in no acute distress. GENERAL APPEARANCE AND MENTAL STATUS: Fair. HEAD/NECK: Normocephalic. Atraumatic. EYES: EOMI. No deformity. EARS: Clear. No ulcers. NOSE: Intact. No lesions. MOUTH: Clear. No discharge. THROAT: Clear. No exudate. LUNGS: Clear. No crackles. CARDIAC: S1, S2. No rub. ABDOMEN: Benign. Bowel sounds positive. GENITALIA/RECTUM: Call absent. BACK/EXTREMITIES: Edema 0+. NEUROLOGICAL: Alert and motor intact. SKIN: LYMPHATICS: LABORATORY DATA: Reviewed. ASSESSMENT AND PLAN: 1. Stage 6 chronic kidney disease. Plan dialysis. 2. Hypertension, stable. 3. Anemia, stable. 4. Medication based on GFR, appropriate. Job ID: [id number]
[2020-01-14] MEDS: Calcium Acetate 667 MG CAP PER TUBE SCH ×3 (13:09→17:03)
[2020-01-14] MEDS: Famotidine 20 MG TAB PER TUBE SCH (13:09)
[2020-01-14] MEDS: predniSONE 5 MG TAB PER TUBE SCH (13:09)
[2020-01-14] MEDS: Metoprolol Tartrate 50 MG TAB PER TUBE SCH ×2 (13:10→20:45)
[2020-01-14] MEDS: Aspirin 325 MG TAB PER TUBE SCH (13:10)
[2020-01-14] MEDS: EPOETIN ALFA-EPBX (ESRD) 10,000 UNIT/ML VIAL IVP SCH (13:59)
--- NOTE | 2020-01-14 16:02 | PDOC.HOSPP ---
- Subjective Encounter Date: 01/14/20 Encounter Time: 08:00 Subjective: no overnight events. This morning, Alertness mildly improved and fee - Objective Vital Signs & Weight: Vital Signs (12 hours) Temp Pulse Resp BP Pulse Ox 01/14/20 15:49 98.0 F 74 16 141/65 H 97 01/14/20 12:00 98.7 F 95 16 147/82 H 92 L 01/14/20 07:52 98.2 F 73 10 L 149/70 H 95 01/14/20 04:09 98.8 F 68 12 146/70 H 94 L Weight Admit Weight 165 lb 12.602 oz Weight 156 lb 4.8 oz Most Recent Monitor Data Heart Rate from ECG 91 NIBP 133/67 NIBP BP-Mean 89 Respiration from ECG 20 SpO2 97 I&O: 01/13/20 01/14/20 01/15/20 06:59 06:59 06:59 Intake Total 310 200 Output Total 2600 Balance -2290 200 Result Diagrams: 01/14/20 01:30 01/13/20 04:47 Additional Labs: Accuchecks 01/14/20 01/14/20 01/14/20 14:14 10:31 06:12 POC Glucose 152 H 126 H 157 H 01/14/20 01/13/20 01/13/20 02:21 21:39 19:17 POC Glucose 148 H 182 H 203 H Hospitalist ROS - Review of Systems Constitutional: denies: fever, chills, sweats, weakness, malaise, other Respiratory: denies: cough, dry, shortness of breath, hemoptysis, SOB with excertion, pleuritic pain, sputum, wheezing, other Cardiovascular: denies: chest pain, palpitations, orthopnea, paroxysmal noc. dyspnea, edema, light headedness, other Gastrointestinal: denies: nausea, vomiting, abdominal pain, diarrhea, constipation, melena, hematochezia, other Neurological: reports: weakness. denies: numbness, incoordination, change in speech - Medication Medications: Active Medications Generic Name Dose Route Start Last Admin Trade Name Freq PRN Reason Stop Dose Admin Acetaminophen 650 mg 01/08/20 15:45 01/10/20 17:23 Tylenol Elixir PER TUBE 650 mg Q6H PRN Administration TEMP >/= 100.3 Amlodipine Besylate 10 mg 01/12/20 21:00 01/13/20 21:16 Norvasc PER TUBE 10 mg HS [facility] Administration Aspirin 325 mg 01/12/20 09:00 01/14/20 13:10 Aspirin PER TUBE 325 mg DAILY [facility] Administration Atorvastatin Calcium 10 mg 01/12/20 21:00 01/13/20 21:16 Lipitor PER TUBE 10 mg HS [facility] Administration Calcium Acetate 667 mg 01/12/20 08:00 01/14/20 13:09 Phoslo PER TUBE 667 mg TID-WM [facility] Administration Doxazosin Mesylate 2 mg 01/12/20 21:00 01/13/20 21:15 Cardura PER TUBE 2 mg HS [facility] Administration Epoetin Tab-epbx 10,000 unit 01/07/20 12:45 01/14/20 13:59 Retacrit IVP 10,000 unit TuThSa [facility] Administration Famotidine 20 mg 01/09/20 09:00 01/14/20 13:09 Pepcid PER TUBE 20 mg DAILY [facility] Administration Piperacillin Sod/Tazobactam 100 mls @ 200 mls/hr 01/05/20 20:00 01/14/20 13: 59 Sod 2.25 gm/ Sodium Chloride IVPB 100 mls 0400,1200,2000 [facility] Administration Insulin Human Lispro 0 units 01/05/20 15:43 01/12/20 18:25 Humalog SC 4 unit .MILD SLIDING SCALE PRN Administration Mild Correctional Scale Metoprolol Tartrate 75 mg 01/12/20 09:00 01/14/20 13:10 Lopressor PER TUBE 75 mg BID [facility] Administration Mineral Oil/White Petrolatum 0 gm 01/06/20 15:30 01/07/20 08:29 Systane Nighttime Eye Ointment EA EYE 1 each Q6H PRN Administration Dry Eyes Sodium Chloride 10 ml 01/05/20 17:30 01/11/20 21:42 Flush - Normal Saline IVF 10 ml PRN PRN Administration Saline Flush - Exam General Appearance: NAD General - other findings: somnolent Eye: PERRL ENT: normocephalic atraumatic Neck: no JVD Heart: RRR, no murmur, no gallops Respiratory: CTAB, no wheezes, no rales, no ronchi, normal chest expansion Gastrointestinal: soft, non-tender, non-distended, normal bowel sounds Extremities: no edema Hosp A/P - Plan #metabolic encephalopathy (improving) -metabolic acidosis due to missed dialysis -clinically progressively improving, more alert -last HD 01/14 (3L removed) #dysphagia -due to metabolic encephalopathy -improving, tolerating dysphagic diet -pending barium swallow evaluation 01/16 Plan: -advanced to dysphagic diet -continue to follow -pending barium swallow eval on 01/16 Code status: full code
[2020-01-14] MEDS: HumaLOG 300 UNITS/3 ML VIAL SC PRN ×2 (18:23→22:26)
[2020-01-14] MEDS: Doxazosin 2 MG TAB PER TUBE SCH (20:43)
[2020-01-14] MEDS: Amlodipine 10 MG TAB PER TUBE SCH (20:43)
[2020-01-14] MEDS: Atorvastatin Calcium 10 MG TAB PER TUBE SCH (20:45)
[2020-01-15 04:57] LABS: Anion Gap 17 mmol/L (10-20); BUN (Urea Nitrogen) 43 mg/dL (8.4-25.7); Calc. Creatinine Clearance 17 mL/min (70-130); Calcium 8.9 mg/dL (7.8-10.44); Carbon Dioxide 26 mmol/L (23-31); Chloride 102 mmol/L (98-107); Estimated GFR-MDRD 16; Glucose 149 mg/dL (83-110); Magnesium 2.1 mg/dL (1.6-2.6); Potassium 4.1 mmol/L (3.5-5.1); Sodium 141 mmol/L (136-145)
[2020-01-15] MEDS: HumaLOG 300 UNITS/3 ML VIAL SC PRN ×4 (06:07→21:35)
[2020-01-15] MEDS: Famotidine 20 MG TAB PER TUBE SCH (08:08)
[2020-01-15] MEDS: Calcium Acetate 667 MG CAP PER TUBE SCH ×3 (08:08→17:49)
[2020-01-15] MEDS: Aspirin 325 MG TAB PER TUBE SCH (08:08)
[2020-01-15] MEDS: Metoprolol Tartrate 50 MG TAB PER TUBE SCH ×2 (08:09→21:34)
--- NOTE | 2020-01-15 15:14 | PRG ---
DATE OF SERVICE: 01/15/2020 SUBJECTIVE: A 74-year-old gentleman, being seen for end-stage renal disease. The patient denied nausea, vomiting, or chest pain. OBJECTIVE: CONSTITUTIONAL: The patient is awake and alert. VITAL SIGNS: Afebrile, pulse 72, breathing 16, and blood pressure 114/59. GENERAL APPEARANCE AND MENTAL STATUS: Fair. HEAD/NECK: Normocephalic. Atraumatic. EYES: EOMI. No deformity. EARS: Clear. No ulcers. NOSE: Intact. No lesions. MOUTH: Clear. No discharge. THROAT: Clear. No exudate. LUNGS: Clear. No crackles. CARDIAC: S1, S2. No rub. ABDOMEN: Benign. Bowel sounds positive. GENITALIA/RECTUM: Call absent. BACK/EXTREMITIES: Edema 0+. NEUROLOGICAL: Alert and motor intact. SKIN: LYMPHATICS: LABORATORY DATA: Labs show hemoglobin 9. ASSESSMENT AND PLAN: 1. Stage 6 chronic kidney disease, stable. 2. Hypertension, stable. 3. Anemia, stable. 4. Medication based on GFR appropriate. Job ID: [id number]
--- NOTE | 2020-01-15 18:34 | PDOC.HOSPP ---
- Subjective Encounter Date: 01/15/20 Encounter Time: 08:00 Subjective: no overnight events. This morning, continues to improve clinically and has no complaints. - Objective Vital Signs & Weight: Vital Signs (12 hours) Temp Pulse Resp BP Pulse Ox 01/15/20 16:01 92 L 01/15/20 15:19 97.9 F 79 14 130/60 91 L 01/15/20 11:25 98.1 F 72 12 109/49 L 93 L 01/15/20 07:49 98.4 F 75 12 114/59 L 92 L Weight Admit Weight 165 lb 12.602 oz Weight 146 lb 4.8 oz Most Recent Monitor Data Heart Rate from ECG 91 NIBP 133/67 NIBP BP-Mean 89 Respiration from ECG 20 SpO2 97 I&O: 01/14/20 01/15/20 01/16/20 06:59 06:59 06:59 Intake Total 200 120 300 Output Total 3000 Balance 200 -2880 300 Result Diagrams: 01/14/20 01:30 01/15/20 04:14 Additional Labs: Accuchecks 01/15/20 01/15/20 01/15/20 17:22 10:59 06:00 POC Glucose 218 H 203 H 169 H 01/14/20 01/14/20 22:12 18:22 POC Glucose 221 H 210 H Hospitalist ROS - Review of Systems Constitutional: denies: fever, chills, sweats, weakness, malaise, other Respiratory: denies: cough, dry, shortness of breath, hemoptysis, SOB with excertion, pleuritic pain, sputum, wheezing, other Cardiovascular: denies: chest pain, palpitations, orthopnea, paroxysmal noc. dyspnea, edema, light headedness, other Gastrointestinal: denies: nausea, vomiting, abdominal pain, diarrhea, constipation, melena, hematochezia, other Genitourinary: denies: dysuria, frequency, incontinence, hematuria, retention, other Neurological: denies: weakness, numbness, incoordination, change in speech, confusion, seizures, other - Medication Medications: Active Medications Generic Name Dose Route Start Last Admin Trade Name Freq PRN Reason Stop Dose Admin Acetaminophen 650 mg 01/08/20 15:45 01/10/20 17:23 Tylenol Elixir PER TUBE 650 mg Q6H PRN Administration TEMP >/= 100.3 Amlodipine Besylate 10 mg 01/12/20 21:00 01/14/20 20:43 Norvasc PER TUBE 10 mg HS [facility] Administration Aspirin 325 mg 01/12/20 09:00 01/15/20 08:08 Aspirin PER TUBE 325 mg DAILY [facility] Administration Atorvastatin Calcium 10 mg 01/12/20 21:00 01/14/20 20:45 Lipitor PER TUBE 10 mg HS [facility] Administration Calcium Acetate 667 mg 01/12/20 08:00 01/15/20 17:49 Phoslo PER TUBE 667 mg TID-WM [facility] Administration Doxazosin Mesylate 2 mg 01/12/20 21:00 01/14/20 20:43 Cardura PER TUBE 2 mg HS [facility] Administration Epoetin Tab-epbx 10,000 unit 01/07/20 12:45 01/14/20 13:59 Retacrit IVP 10,000 unit TuThSa [facility] Administration Famotidine 20 mg 01/09/20 09:00 01/15/20 08:08 Pepcid PER TUBE 20 mg DAILY [facility] Administration Insulin Human Lispro 0 units 01/05/20 15:43 01/15/20 17:48 Humalog SC 3 unit .MILD SLIDING SCALE PRN Administration Mild Correctional Scale Metoprolol Tartrate 75 mg 01/12/20 09:00 01/15/20 08:09 Lopressor PER TUBE 75 mg BID [facility] Administration Mineral Oil/White Petrolatum 0 gm 01/06/20 15:30 01/07/20 08:29 Systane Nighttime Eye Ointment EA EYE 1 each Q6H PRN Administration Dry Eyes Sodium Chloride 10 ml 01/05/20 17:30 01/15/20 08:10 Flush - Normal Saline IVF 10 ml PRN PRN Administration Saline Flush - Exam General Appearance: NAD, awake alert ENT: normocephalic atraumatic Neck: no JVD Heart: RRR, no murmur, no gallops, no rubs Respiratory: CTAB, no wheezes, no rales, no ronchi, normal chest expansion Gastrointestinal: soft, non-tender, non-distended, normal bowel sounds Extremities: no edema Psychiatric: normal affect, normal behavior, A&O x 3 Hosp A/P - Plan #metabolic encephalopathy (resolved) -metabolic acidosis due to missed dialysis -clinically progressively improving, alertness at baseline #dysphagia -due to metabolic encephalopathy -improving, tolerating dysphagic diet -pending barium swallow evaluation 01/16 Plan: -continue dysphagic diet as per patient and family's request despite education regarding risks -pending barium swallow eval on 01/16 and placement Code status: full code
[2020-01-15] MEDS: Amlodipine 10 MG TAB PER TUBE SCH (21:32)
[2020-01-15] MEDS: Atorvastatin Calcium 10 MG TAB PER TUBE SCH (21:32)
[2020-01-15] MEDS: Doxazosin 2 MG TAB PER TUBE SCH (21:32)
[2020-01-16 05:02] LABS: Anion Gap 17 mmol/L (10-20); BUN (Urea Nitrogen) 70 mg/dL (8.4-25.7); Calc. Creatinine Clearance 10 mL/min (70-130); Calcium 8.9 mg/dL (7.8-10.44); Carbon Dioxide 26 mmol/L (23-31); Chloride 105 mmol/L (98-107); Estimated GFR-MDRD 10; Glucose 163 mg/dL (83-110); Magnesium 2.2 mg/dL (1.6-2.6); Potassium 3.8 mmol/L (3.5-5.1); Sodium 144 mmol/L (136-145)
[2020-01-16] MEDS: Aspirin 325 MG TAB PER TUBE SCH (08:28)
[2020-01-16] MEDS: Calcium Acetate 667 MG CAP PER TUBE SCH ×3 (08:28→18:28)
[2020-01-16] MEDS: Metoprolol Tartrate 50 MG TAB PER TUBE SCH ×2 (08:29→20:47)
[2020-01-16] MEDS: Famotidine 20 MG TAB PER TUBE SCH (08:29)
[2020-01-16] MEDS: HumaLOG 300 UNITS/3 ML VIAL SC PRN ×2 (11:50→18:28)
--- NOTE | 2020-01-16 12:51 | PRG ---
DATE OF SERVICE: 01/16/2020 SUBJECTIVE: Patient was seen and examined at bedside and overnight events noted. Patient denies any shortness of breath or chest pain or palpitation. No history of nausea or vomiting or diarrhea or fever or chills or cramps. OBJECTIVE: GENERAL: This is a well-built male, in no acute distress. VITAL SIGNS: Temperature 98. Pulse 70. Respiratory rate 18. Blood pressure 111/53. HEENT: Atraumatic, normocephalic. Oral mucosa is moist NECK: Supple. CARDIOVASCULAR: S1, S2 heard. Rate and rhythm regular. RESPIRATORY: Clear to auscultation. GASTROINTESTINAL: Abdomen is soft. MUSCULOSKELETAL: No tenderness. No edema. DERMATOLOGIC: No skin rash. NEUROLOGIC: Alert and awake and oriented X3. No focal neurologic deficits. Moving all the extremities. PSYCHIATRIC: Mood and affect normal. LABORATORY DATA: Potassium 3.8, BUN is 70, and creatinine is 5.7. ASSESSMENT AND PLAN: 1. End-stage renal disease. Continue on hemodialysis, Thursday, , Thursday. 2. Hypertension. 3. Anemia. 4. Edema, we will remove fluid. 5. Altered mentation, better. Plan to continue on dialysis as tolerated, Thursday, , Thursday. Job ID: [id number]
--- NOTE | 2020-01-16 13:52 | RAD ---
Exam: Modified barium swallow, the presence speech pathologist HISTORY: Dysphagia, unspecified. Feeding difficulties Exposure: 2 minutes fluoroscopy time. 1.02 lynch per centimeter square FINDINGS: In the presence of speech pathologist, the patient was ministered thin liquid, nectar thick , pudding and solid consistencies Significant oral residue with decreased oral phase. Penetration and aspiration with the thin liquid c onsistency that does remain throughout the entire exam. IMPRESSION: Penetration and aspiration. Please refer to speech pathologist report for feeding recomme ndation
[2020-01-16] MEDS: Amlodipine 10 MG TAB PER TUBE SCH (20:47)
[2020-01-16] MEDS: Atorvastatin Calcium 10 MG TAB PER TUBE SCH (20:47)
[2020-01-16] MEDS: Doxazosin 2 MG TAB PER TUBE SCH (20:47)
--- NOTE | 2020-01-16 22:56 | PDOC.HOSPP ---
- Subjective Encounter Date: 01/16/20 Encounter Time: 10:00 Subjective: no overnight events. per son at bedside, patient is as good as he's been in the past few months, especially in terms of alertness and interaction. Patient feels well and has no complaints. - Objective Vital Signs & Weight: Vital Signs (12 hours) Temp Pulse Resp BP BP Pulse Ox 01/16/20 20:47 67 123/60 01/16/20 19:08 98.2 F 67 18 123/60 96 01/16/20 15:11 97.5 F L 70 20 130/67 93 L 01/16/20 11:14 98 F 70 16 111/53 L 96 Weight Admit Weight 165 lb 12.602 oz Weight 148 lb 11.2 oz Most Recent Monitor Data Heart Rate from ECG 91 NIBP 133/67 NIBP BP-Mean 89 Respiration from ECG 20 SpO2 97 I&O: 01/15/20 01/16/20 01/17/20 06:59 06:59 06:59 Intake Total 120 625 360 Output Total 3000 Balance -2880 625 360 Result Diagrams: 01/14/20 01:30 01/16/20 04:23 Additional Labs: Accuchecks 01/16/20 01/16/20 01/16/20 19:13 16:58 10:44 POC Glucose 198 H 223 H 279 H 01/16/20 05:52 POC Glucose 180 H Hospitalist ROS - Review of Systems Constitutional: denies: fever, chills, sweats, weakness, malaise, other Respiratory: denies: cough, dry, shortness of breath, hemoptysis, SOB with excertion, pleuritic pain, sputum, wheezing, other Cardiovascular: denies: chest pain, palpitations, orthopnea, paroxysmal noc. dyspnea, edema, light headedness, other Gastrointestinal: denies: nausea, vomiting, abdominal pain, diarrhea, constipation, melena, hematochezia, other Neurological: denies: weakness, numbness, incoordination, change in speech, confusion, seizures, other - Medication Medications: Active Medications Generic Name Dose Route Start Last Admin Trade Name Freq PRN Reason Stop Dose Admin Acetaminophen 650 mg 01/08/20 15:45 01/10/20 17:23 Tylenol Elixir PER TUBE 650 mg Q6H PRN Administration TEMP >/= 100.3 Amlodipine Besylate 10 mg 01/12/20 21:00 01/16/20 20:47 Norvasc PER TUBE 10 mg HS LESTER Administration Aspirin 325 mg 01/12/20 09:00 01/16/20 08:28 Aspirin PER TUBE 325 mg DAILY LESTER Administration Atorvastatin Calcium 10 mg 01/12/20 21:00 01/16/20 20:47 Lipitor PER TUBE 10 mg HS LESTER Administration Calcium Acetate 667 mg 01/12/20 08:00 01/16/20 18:28 Phoslo PER TUBE 667 mg TID-WM LESTER Administration Doxazosin Mesylate 2 mg 01/12/20 21:00 01/16/20 20:47 Cardura PER TUBE 2 mg HS LESTER Administration Epoetin Tab-epbx 10,000 unit 01/07/20 12:45 01/14/20 13:59 Retacrit IVP 10,000 unit TuThSa LESTER Administration Famotidine 20 mg 01/09/20 09:00 01/16/20 08:29 Pepcid PER TUBE 20 mg DAILY LESTER Administration Insulin Human Lispro 0 units 01/05/20 15:43 01/16/20 18:28 Humalog SC 3 unit .MILD SLIDING SCALE PRN Administration Mild Correctional Scale Metoprolol Tartrate 75 mg 01/12/20 09:00 01/16/20 20:47 Lopressor PER TUBE 75 mg BID LESTER Administration Mineral Oil/White Petrolatum 0 gm 01/06/20 15:30 01/07/20 08:29 Systane Nighttime Eye Ointment EA EYE 1 each Q6H PRN Administration Dry Eyes Sodium Chloride 10 ml 01/05/20 17:30 01/15/20 21:35 Flush - Normal Saline IVF 10 ml PRN PRN Administration Saline Flush - Exam General Appearance: NAD, awake alert Eye: PERRL ENT: normocephalic atraumatic Neck: supple, symmetric, no JVD Heart: RRR, no murmur, no gallops, no rubs Respiratory: CTAB, no wheezes, no rales, no ronchi Gastrointestinal: soft, non-tender, non-distended, normal bowel sounds Extremities: no edema Psychiatric: normal affect, normal behavior, A&O x 3 Hosp A/P - Plan #dysphagia -due to metabolic encephalopathy -barium swallow evaluation 01/16: penetration and aspiration; diet modified as per speech pathologist and patient's requests despite knowledge of aspiration risk. #metabolic encephalopathy (resolved) -metabolic acidosis due to missed dialysis -clinically progressively improving, alertness at baseline Plan: -continue dysphagic diet as per patient and family's request despite education regarding risks -pending placement Code status: full code
[2020-01-17 05:24] LABS: Anion Gap 20 mmol/L (10-20); BUN (Urea Nitrogen) 89 mg/dL (8.4-25.7); Calc. Creatinine Clearance 8 mL/min (70-130); Calcium 9.1 mg/dL (7.8-10.44); Carbon Dioxide 24 mmol/L (23-31); Chloride 104 mmol/L (98-107); Estimated GFR-MDRD 7; Glucose 149 mg/dL (83-110); Magnesium 2.4 mg/dL (1.6-2.6); Potassium 4.1 mmol/L (3.5-5.1); Sodium 144 mmol/L (136-145)
[2020-01-17 05:50] VITALS: BMI 21.1
[2020-01-17] MEDS: HumaLOG 300 UNITS/3 ML VIAL SC PRN (06:29)
[2020-01-17] MEDS ORDERED: glipiZIDE 5 MG TAB PO SCH (08:00)
[2020-01-17] MEDS: Famotidine 20 MG TAB PER TUBE SCH (12:10)
[2020-01-17] MEDS: Metoprolol Tartrate 50 MG TAB PER TUBE SCH (12:10)
[2020-01-17] MEDS: Calcium Acetate 667 MG CAP PER TUBE SCH ×2 (12:10)
[2020-01-17] MEDS: Aspirin 325 MG TAB PER TUBE SCH (12:10)
[2020-01-17] MEDS: EPOETIN ALFA-EPBX (ESRD) 10,000 UNIT/ML VIAL IVP SCH (12:44)
[2020-01-17 15:48] VITALS: BP 140/60; TEMP 98.3
--- NOTE | 2020-01-17 17:33 | PRG ---
DATE OF SERVICE: SUBJECTIVE: Patient was seen and examined at bedside and overnight events noted. Patient denies any shortness of breath or chest pain or palpitation. No history of nausea or vomiting or diarrhea or fever or chills or cramps. OBJECTIVE: GENERAL: This is a well-built male, in no apparent distress. VITAL SIGNS: Temperature 98.3. Heart rate . Respiratory rate 16. Blood pressure 140/60. HEENT: Atraumatic, normocephalic. Oral mucosa is moist NECK: Supple. CARDIOVASCULAR: S1, S2 heard. Rate and rhythm regular. RESPIRATORY: Clear to auscultation. GASTROINTESTINAL: Abdomen is soft. MUSCULOSKELETAL: No tenderness. No edema. DERMATOLOGIC: No skin rash. NEUROLOGIC: Alert and awake and oriented X3. No focal neurologic deficits. Moving all the extremities. PSYCHIATRIC: Mood and affect normal. LABORATORY DATA: Potassium 4.1, BUN is 89, and creatinine is 7.3. ASSESSMENT AND PLAN: 1. End-stage renal disease. Continue on hemodialysis Thursday, , Thursday. 2. Hypertension. 3. Anemia. 4. Edema. We will remove fluid. 5. Altered mentation, better. Continue dialysis as tolerated Thursday, , Thursday. Job ID: [id number]
--- NOTE | 2020-01-18 04:56 | PQF ---
JACKMIO Hilary SOMERS, PAMELA [id number] [facility] [place] 202 [id number] CLINICAL DOCUMENTATION CLARIFICATION FORM: POST DISCHARGE Addendum to original discharge summary date: ____ Late entry note date: __ DATE:01/18/2020 ATTN: Pamela Mahoney Please exercise your independent, professional judgment in responding to the clarification form. Clinical indicators are provided on the bottom of this form for your review In your clinical opinion based on clinical findings below, can you please identify the etiology of Acute respiratory failure if due to: Please check appropriate box(s): [ ] Sepsis [ x ] Missed Dialysis [ ] ESRD [ ] Other diagnosis [ ] Unable to determine In addition, please specify: Present on Admission (POA): [x ] Yes [ ] No [ ] Unable to determine For continuity of documentation, please document condition throughout progress notes and discharge summary. Thank You. CLINICAL INDICATORS - SIGNS / SYMPTOMS / LABS Laboratory 01/05 WBC 11.4, Band Neutrophils 31,Lactic Acid 7.6, BUN 123, Creatinine 10.58 ABG 01/05 pH7.20, pCO2 33.5, pO2 137.1, O2 sat 96.5, O2 content 12.8, Base Excess -14.3, Hct 27.0, Hgb 9.3 ED note p16 2 I suspect metabolic acidosis from laying on the floor for possibly 1 or 2 days and dehydration. I doubt infection etiology such as sepsis H&P p1 2 Dr Stringer GCS was 4 (open eyes), BP was 85/60, HR was 150, Glucose was 40 and temp was 95F H&P p1 2 Dr Stringer brought to ED by EMS with altered mental status H&P p1 2 Dr Stringer EMS reports that the pt had been missing for several days before his family called the police to do wellness check in the pt's home because his dialysis clinic reported that he had missed two days of dialysis [employer] ED notes p17 Respiratory failure H&P p1 01/05 74 year old man H&P p1 2 ESRD on HD H&P p1 01/05 - T2DM H&P p1 01/05 CAD H&P p1 01/05 HTN H&P p1 01/05 - Former Smoker H&P p4 01/05 Hyperkalemia H&P p4 01/05 Hypernatremia H&P p4 01/05 Acute Metabolic Encephalopathy PN p1 01/08 Aspiration Pneumonia Hospitalist PN p6 01/11 Sepsis TREATMENTS: Respiratory panel 01/05 On Mechanical Ventilator IV Zosyn 2.25gm IVF 1L Prednisone 10mg po ABG ordered 01/05 Chest Xray ordered 01/05 Blood Culture order 01/05 Renal Panel 01/11 Hemodialysis Nephrology consult 01/05 Andrey Rojas Cardiology Consult 01/06 Wood Dumont (This form is maintained as a part of the permanent medical record) 2014 [employer]. All Rights Reserved [email or web address]
--- NOTE | 2020-01-18 12:59 | DIS ---
DATE OF ADMISSION: 01/05/2020 DATE OF DISCHARGE: 01/17/2020 HOSPITAL COURSE: Mr. Keller is a 74-year-old male with a medical history of end-stage renal disease on hemodialysis, type 2 diabetes, coronary artery disease, CVA, and hypertension, was brought to the ED by EMS after he was found unresponsive in his apartment after missing dialysis. The patient was diagnosed with acute encephalopathy secondary to severe metabolic acidosis from missed dialysis resulting in respiratory failure. He required intubation and was initially started on antibiotics for suspected aspiration pneumonia. After being extubated, the patient continued to be dysphagic, likely due to metabolic encephalopathy with possible contribution of intubation, that was changed based on speech pathology and the patient's request despite warnings to a dysphagia diet. The patient continued to exhibit aspiration prior to discharge based on the barium study; however, requested to remain on a dysphagic diet. He was discharged to a residential facility with explicit instructions on how to reduce the risk of aspiration as well as the specific diet the patient requires. On the day of discharge, family at bedside claimed that the patient has not been as responsive and interactive as he was on the day of discharge. During the past month, he was hemodynamically stable. PHYSICAL EXAMINATION: GENERAL: He was in no apparent distress. Awake and alert. HEENT: Eye exam, PERRL. ENT, normocephalic and atraumatic. NECK: Supple. Symmetric. No JVD. HEART: Regular rate and rhythm. No murmur. No gallops. No rubs. RESPIRATORY: Clear to auscultation bilaterally. No wheezes, no rales, no rhonchi. GASTROINTESTINAL: Soft, nontender, nondistended. Normal bowel sounds. EXTREMITIES: No edema. PSYCHIATRIC: Normal affect. Normal behavior. Alert and oriented x2 to x3. ASSESSMENT AND PLAN: Mr. Keller is a 74-year-old male, who presented with metabolic encephalopathy due to missed dialysis. He required intubation. Status post extubation, the patient remained dysphagic and a barium study showed that even the day prior to discharge, the patient was at high risk for aspiration. However, the patient chose to continue oral feeding despite education by Speech Therapy. He was discharged to a residential facility with extensive instructions regarding his diet as well as means of avoidance of aspiration. Job ID: [id number]
== END 2020-01-17 16:20 | DRG 208 ==
LOC: ERS 12:47 → CCU 14:25 → IMCU/EMU 01-09 17:20 → 2SE 01-10 16:47
PROVIDERS: ADMIT Internal Medicine; ATTEND Internal Medicine
PROC: 5A1945Z Respiratory Ventilation, 24-96 Consecutive Hours (ICD-10-PCS; principal; 2020-01-05)
PROC: 0BH17EZ Insertion of Endotracheal Airway into Trachea, Via Natural or Artificial Opening (ICD-10-PCS; 2020-01-05)
PROC: 02HV33Z Insertion of Infusion Device into Superior Vena Cava, Percutaneous Approach (ICD-10-PCS; 2020-01-05)
PROC: 5A1D70Z Performance of Urinary Filtration, Intermittent, Less than 6 Hours Per Day (ICD-10-PCS; 2020-01-11)
DX: J96.01 Acute respiratory failure with hypoxia (principal); N18.6 End stage renal disease; G93.41 Metabolic encephalopathy; A41.9 Sepsis, unspecified organism; J69.0 Pneumonitis due to inhalation of food and vomit; E87.0 Hyperosmolality and hypernatremia; I12.0 Hypertensive chronic kidney disease with stage 5 chronic kidney disease or end stage renal disease; I42.9 Cardiomyopathy, unspecified; I24.8 Other forms of acute ischemic heart disease; E87.2 Acidosis; E87.5 Hyperkalemia; I25.10 Atherosclerotic heart disease of native coronary artery without angina pectoris; E78.5 Hyperlipidemia, unspecified; D63.1 Anemia in chronic kidney disease; E11.22 Type 2 diabetes mellitus with diabetic chronic kidney disease; E87.70 Fluid overload, unspecified; R13.12 Dysphagia, oropharyngeal phase; E11.40 Type 2 diabetes mellitus with diabetic neuropathy, unspecified; Z95.1 Presence of aortocoronary bypass graft; Z86.73 Personal history of transient ischemic attack (TIA), and cerebral infarction without residual deficits; Z99.2 Dependence on renal dialysis; Z87.891 Personal history of nicotine dependence; Z79.899 Other long term (current) drug therapy; Z79.82 Long term (current) use of aspirin; Z79.84 Long term (current) use of oral hypoglycemic drugs
CPT/HCPCS: 31500; 36415; 36416; 36556; 51702; 70450; 70551; 71045; 74018; 74230; 80048; 80053; 82140; 82533; 82553; 82607; 82747; 82805; 83605; 83735; 83880; 84100; 84425; 84439; 84484; 85014; 85018; 85025; 85027; 85610; 85730; 87040; 87340; 90935; 93005; 93010; 93306; 94002; 94003; 96374; G0257; J0171; J1644; J2543; J3010; J3490; J7512; P9045; Q5105; S0028

== ENCOUNTER 2020-05-01 00:41 | Observation (INO) | payer BC, MEDICARE ==
[2020-05-01 02:35] LABS: #Monocytes 1.1 thou/uL (0.11-0.59); #Neutrophils 16.4 thou/uL (1.40-6.50); %Basophils 0.1 % (0.0-1.0); %Eosinophils 0.3 % (0.0-10.0); %Lymphocytes 5.2 % (21.0-51.0); %Monocytes 5.9 % (0.0-10.0); %Neutrophils 88.6 % (42.0-75.0); Hemoglobin 12.7 g/dL (14.0-18.0); Mean Corpuscular HGB CONC 32.2 g/dL (32.0-36.0); Mean Corpuscular Hemoglobin 29.5 pg (27.0-31.0); Mean Corpuscular Volume 91.6 fL (78.0-98.0); Mean Platelet Volume 9.3 fL (7.4-10.4); Platelet Count 313 thou/uL (130-400); Red Blood Cell (RBC) Count 4.32 mill/uL (4.70-6.10); White Blood Cell (WBC) Count 18.6 thou/uL (4.8-10.8)
[2020-05-01 02:57] LABS: ALT (SGPT) 7 U/L (8-55); AST (SGOT) 14 U/L (5-34); Albumin 3.8 g/dL (3.4-4.8); Alkaline Phosphatase 112 U/L (40-110); Anion Gap 21 mmol/L (10-20); BUN (Urea Nitrogen) 53 mg/dL (8.4-25.7); Bilirubin, Total 0.4 mg/dL (0.2-1.2); Calc. Creatinine Clearance 0 mL/min (70-130); Calcium 8.2 mg/dL (7.8-10.44); Carbon Dioxide 26 mmol/L (23-31); Chloride 97 mmol/L (98-107); Estimated GFR-MDRD 8; Potassium 3.7 mmol/L (3.5-5.1); Protein, Total 7.8 g/dL (5.8-8.1); Sodium 140 mmol/L (136-145)
[2020-05-01 03:03] LABS: Glucose 45 mg/dL (83-110)
[2020-05-01] MEDS ORDERED: Dextrose 50% Abboject 50 ML SYRINGE ONE (03:12)
[2020-05-01] MEDS ORDERED: cefTRIAXone\\ROCEPHIN 2 GM VIAL ONE (03:12)
[2020-05-01] MEDS ORDERED: Vancomycin 1 GM/200 ML BAG ONE (03:12)
[2020-05-01] MEDS ORDERED: Dextrose 10% in Water 1,000 ML IV SCH (03:15)
[2020-05-01] MEDS ORDERED: Cefepime 2 GM VIAL ONE (03:22)
[2020-05-01] MEDS ORDERED: Ondansetron PF 4 MG/2 ML Vial IVP PRN (04:30)
[2020-05-01] MEDS ORDERED: Labetalol HCl 100 MG/20 ML VIAL SLOW IVP PRN (04:30)
[2020-05-01] MEDS ORDERED: Promethazine HCl 12.5 MG in Sodium Chloride 0.9% 50 ML IVPB PRN (04:30)
[2020-05-01] MEDS ORDERED: HYDROcodone/Acetaminophen 5/325 mg Tablet PO PRN (04:30)
[2020-05-01] MEDS ORDERED: Morphine 2 MG/ML SYRINGE SLOW IVP PRN (04:30)
[2020-05-01] MEDS ORDERED: hydrALAZINE 20 MG/ML VIAL SLOW IVP PRN (04:30)
[2020-05-01] MEDS ORDERED: cloNIDine 0.1 MG TAB PO PRN (04:30)
--- NOTE | 2020-05-01 04:32 | PDOC.HHP ---
Hospitalist HPI - History of Present Illness Altered mental status History of Present Illness: Patient is a 74 year old male with PMH ESRD on HD, HTN, chronic sacral wound, DM , CABG/stents/CAD who presents to ED for syncopal episode. Patient found on floor and incoherent per brother. Patient blood sugar checked by EMS and was 38. Patient brother not present and patient does not remember what meds he takes , but he is not on insulin only pills for DM. Patient was given D10 and sugary foods and monitored in ED for several hours and blood sugar persistently low, patient to be admitted for workup of this. He had ESRD and sees Dr Carlson I believe but patient not quite sure. Before brother left, he noted mental status was back to baseline. Patient has pressure ulcer. Hospitalist ROS - Review of Systems Constitutional: reports: weakness, malaise, other (syncope). denies: fever, chills, sweats Eyes: denies: pain, vision change, conjunctivae inflammation, eyelid inflammation, redness, other ENT: denies: ear pain, ear discharge, nose pain, nose discharge, nose congestion , mouth pain, mouth swelling, throat pain, throat swelling, other Respiratory: denies: cough, dry, shortness of breath, hemoptysis, SOB with excertion, pleuritic pain, sputum, wheezing, other Cardiovascular: denies: chest pain, palpitations, orthopnea, paroxysmal noc. dyspnea, edema, light headedness, other Gastrointestinal: denies: nausea, vomiting, abdominal pain, diarrhea, constipation, melena, hematochezia, other Genitourinary: denies: dysuria, frequency, incontinence, hematuria, retention, other Musculoskeletal: denies: neck pain, shoulder pain, arm pain, back pain, hand pain, leg pain, foot pain, other Skin: denies: rash, lesions, isa, bruising, other Neurological: denies: weakness, numbness, incoordination, change in speech, confusion, seizures, other All other systems reviewed; all pertinent +/- noted in HPI/Subj Hospitalist History - Past Medical History Heme/Onc: reports: Anemia NOS Renal/: reports: Other (ESRD) Endocrine: reports: Diabetes (T2) Other Medical History: Past medical history includes renal disease end stage renal disease dialysis Notes: Not on blood thinners. History of heart problems. Hypertension. Has a chronic wound on his backside., Past medical history includes history of diabetes. - Past Surgical History Other Surgical History: Left shoulder surgery. CABG. Cardiac stents - Family History Family History: reports: no pertinent history - Social History Smoking Status: Former smoker Alcohol: reports: None Drugs: reports: none - Exam General Appearance: NAD, awake alert General - other findings: confused but awake and alert Eye: PERRL, anicteric sclera ENT: normocephalic atraumatic, no oropharyngeal lesions, moist mucosa Neck: supple, symmetric, no JVD, no thyromegaly, no lymphadenopathy, no carotid bruit Heart: RRR, no murmur, no gallops, no rubs, normal peripheral pulses Respiratory: CTAB, no wheezes, no rales, no ronchi, normal chest expansion, no tachypnea, normal percussion Gastrointestinal: soft, non-tender, non-distended, normal bowel sounds, no palpable masses, no hepatomegaly, no splenomegaly, no bruit Extremities: no cyanosis, no clubbing, no edema Skin: normal turgor, no lesions, no rashes Neurological: cranial nerve grossly intact, normal sensation to touch, no weakness, no focal deficits, no new deficit Musculoskeletal: normal tone, normal strength, no muscle wasting Psychiatric: normal affect, normal behavior, A&O x 3 Hospitalist Results - Labs Result Diagrams: 05/01/20 02:13 05/01/20 02:13 Lab results: WBC 18.6 thou/uL (4.8-10.8) H 05/01/20 02:13 Hgb 12.7 g/dL (14.0-18.0) L 05/01/20 02:13 Hct 39.5 % (42.0-52.0) L 05/01/20 02:13 MCV 91.6 fL (78.0-98.0) 05/01/20 02:13 Plt Count 313 thou/uL (130-400) 05/01/20 02:13 Neutrophils % 88.6 % (42.0-75.0) H 05/01/20 02:13 Sodium 140 mmol/L (136-145) 05/01/20 02:13 Potassium 3.7 mmol/L (3.5-5.1) 05/01/20 02:13 Chloride 97 mmol/L (98-107) L 05/01/20 02:13 Carbon Dioxide 26 mmol/L (23-31) 05/01/20 02:13 BUN 53 mg/dL (8.4-25.7) H 05/01/20 02:13 Creatinine 6.56 mg/dL (0.7-1.3) H 05/01/20 02:13 Glucose 45 mg/dL (83-110) L* 05/01/20 02:13 Lactic Acid 0.9 mmol/L (0.5-2.2) 05/01/20 02:13 Calcium 8.2 mg/dL (7.8-10.44) 05/01/20 02:13 Total Bilirubin 0.4 mg/dL (0.2-1.2) 05/01/20 02:13 AST 14 U/L (5-34) 05/01/20 02:13 ALT 7 U/L (8-55) L 05/01/20 02:13 Alkaline Phosphatase 112 U/L (40-110) H 05/01/20 02:13 Serum Total Protein 7.8 g/dL (5.8-8.1) 05/01/20 02:13 Albumin 3.8 g/dL (3.4-4.8) 05/01/20 02:13 Hospitalist H&P A/P - Plan Plan: Patient is a 74 year old male with PMH ESRD on HD, HTN, chronic sacral wound, DM , CABG/stents/CAD who presents to ED for syncopal episode. # syncope - suspect due to low blood sugar, treat as below, check q4h until improved or if symptoms - follow up UA and CXR report to rule out sepsis - will need to do med rec in AM, requested nursing call to patients brother in AM - recieved empiric cefepime and vanc in ED, hold further abx for now - cortisol and thyroid hormones ordered, follow results # leukocytosis - as above, need to rule out sepsis # ESRD - consult nephrology Dr Carlson # sacral ulcer - wound care nursing consult # DM - SSI, hold oral meds
[2020-05-01 05:47] VITALS: BMI 22.1
[2020-05-01] MEDS: Dextrose 5 %-0.45 % NaCl 1,000 ML IV SCH ×2 (05:47→14:51)
[2020-05-01] MEDS: Acetaminophen 325 MG TAB PO PRN ×2 (05:48→17:49)
[2020-05-01] MEDS ORDERED: Dextrose 5% in Water 1,000 ML IV PRN (05:49)
[2020-05-01] MEDS ORDERED: HumaLOG 300 UNITS/3 ML VIAL SC PRN (05:49)
[2020-05-01] MEDS: Enoxaparin Sodium 30 MG/0.3 ML SYRINGE SC SCH (07:39)
[2020-05-01] MEDS: Polyethylene Glycol 3350 17 GM Packet PO SCH (07:40)
--- NOTE | 2020-05-01 08:45 | RAD ---
PORTABLE CHEST: Date: 05/01/2020 HISTORY: Syncope. Altered mental status. COMPARISON: 01/10/2020 exam. FINDINGS: Heart size is within normal limits. There are postop sternotomy changes. Atherosclerotic changes are seen in the aorta. The lungs are clear of infiltrates. IMPRESSION: No active intrathoracic disease. POS: ALEN
[2020-05-01 09:34] LABS: Free T4 (Free Thyroxine) 0.79 ng/dL (0.70-1.48); Thyroid Stimulating Hormone 0.577 uIU/mL (0.35-4.94)
[2020-05-01 09:46] LABS: Bacteria/HPF None Seen HPF (None Seen); Bilirubin Negative (Negative); Blood, Urine Negative (Negative); Clarity Clear (Clear); Glucose, Urine (Dipstick) Normal (Negative); Leukocyte Negative Leu/uL (Negative); Nitrite Negative (Negative); Protein, Urine (Dipstick) 200 mg/dL (Neg-Trace); RBC/HPF 0-3 HPF (0-3); Squamous Epithelial 0-3 HPF (0-3); Urobilinogen Normal mg/dL (Less than 2); WBC/HPF 0-3 HPF (0-3)
[2020-05-01 09:55] LABS: Urine Culture Reflex No No
[2020-05-01] MEDS: Dextrose 50% Abboject 50 ML SYRINGE SLOW IVP PRN ×2 (11:23→18:16)
--- NOTE | 2020-05-01 11:24 | CON ---
DATE OF CONSULTATION: REASON FOR CONSULTATION: End-stage renal disease for maintenance hemodialysis. HISTORY OF PRESENTING ILLNESS: This is a very pleasant 74-year-old gentleman, who presented to the hospital earlier today for altered mental status. The patient does dialysis on his regular schedule. The patient can give no further history. PAST MEDICAL HISTORY: Significant for anemia, hypertension, diabetes mellitus, CABG, and coronary artery disease. FAMILY HISTORY: Negative for ESRD. ALLERGIES: REVIEWED. HOME MEDICATIONS: List reviewed. HOSPITAL MEDICATIONS: List reviewed. REVIEW OF SYSTEMS: Unobtainable. PHYSICAL EXAMINATION: General: The patient is awake and alert. Vital Signs: Afebrile, pulse 75, breathing at 16, blood pressure was 147/70. HEENT: Head normocephalic and atraumatic. Eyes intact, no ulcers. Nose intact, no ulcers. Ears intact, no ulcers. Neck: Supple. No JVD. Chest: Symmetrical and clear. Cardiovascular: Shows S1 and S2, no rub, no murmur. Gastrointestinal: Abdomen is soft, bowel sounds positive. Extremities: Show no edema or ulcers. Skin: Shows no rash or petechiae. Musculoskeletal: Shows no joint swelling or stiffness. Genitourinary: Shows no Call or CVA tenderness. Neurologic: Motor intact. Cranial nerves intact. LABORATORY DATA: Reviewed. ASSESSMENT AND PLAN: 1. Stage 6 chronic kidney disease. Plan dialysis per schedule. 2. Hypertension, stable. 3. Anemia, stable. Medication based on GFR appropriate. Job ID: [id number]
[2020-05-01] MEDS: Sevelamer Carbonate 800 MG TAB PO SCH ×2 (11:27→17:45)
[2020-05-01] MEDS: Calcium Acetate 667 MG CAP PO SCH ×2 (11:27→17:45)
[2020-05-01] MEDS: Atorvastatin Calcium 10 MG TAB PO SCH (20:41)
[2020-05-01] MEDS: Metoprolol Tartrate 50 MG TAB PO SCH (20:41)
[2020-05-01] MEDS ORDERED: Prevnar 13-Val Conj/PF 0.5 ML SYRINGE IM ONE (21:00)
[2020-05-02] MEDS: Dextrose 5 %-0.45 % NaCl 1,000 ML IV SCH
[2020-05-02 05:29] LABS: #Basophils 0.1 thou/uL (0.0-0.2); #Eosinphils 0.4 thou/uL (0.0-0.7); #Lymphocytes 2.1 thou/uL (1.20-3.40); #Monocytes 1.3 thou/uL (0.11-0.59); #Neutrophils 8.5 thou/uL (1.40-6.50); %Basophils 0.7 % (0.0-1.0); %Lymphocytes 16.6 % (21.0-51.0); %Monocytes 10.8 % (0.0-10.0); %Neutrophils 68.9 % (42.0-75.0); Hemoglobin 11.9 g/dL (14.0-18.0); Mean Corpuscular HGB CONC 30.7 g/dL (32.0-36.0); Mean Corpuscular Hemoglobin 28.5 pg (27.0-31.0); Mean Corpuscular Volume 92.9 fL (78.0-98.0); Mean Platelet Volume 9.2 fL (7.4-10.4); Platelet Count 293 thou/uL (130-400); RBC Distribution Width 16.1 % (11.5-14.5); Red Blood Cell (RBC) Count 4.19 mill/uL (4.70-6.10); White Blood Cell (WBC) Count 12.4 thou/uL (4.8-10.8)
[2020-05-02 05:49] LABS: Anion Gap 15 mmol/L (10-20); BUN (Urea Nitrogen) 27 mg/dL (8.4-25.7); Calc. Creatinine Clearance 14 mL/min (70-130); Calcium 7.8 mg/dL (7.8-10.44); Carbon Dioxide 24 mmol/L (23-31); Chloride 102 mmol/L (98-107); Estimated GFR-MDRD 13; Glucose 110 mg/dL (83-110); Magnesium 1.8 mg/dL (1.6-2.6); Potassium 4.5 mmol/L (3.5-5.1); Sodium 136 mmol/L (136-145)
[2020-05-02] MEDS: Metoprolol Tartrate 50 MG TAB PO SCH ×2 (08:17→21:03)
[2020-05-02] MEDS: Enoxaparin Sodium 30 MG/0.3 ML SYRINGE SC SCH (08:17)
[2020-05-02] MEDS: Calcium Acetate 667 MG CAP PO SCH ×3 (08:17→17:12)
[2020-05-02] MEDS: Aspirin 81 mg Enteric Coated Tablet PO SCH (08:17)
[2020-05-02] MEDS: Sevelamer Carbonate 800 MG TAB PO SCH ×3 (08:17→17:12)
[2020-05-02] MEDS: hydrALAZINE 25 MG TAB PO SCH ×3 (08:17→21:02)
[2020-05-02] MEDS: Losartan 25 MG TAB PO SCH (08:18)
[2020-05-02] MEDS: Polyethylene Glycol 3350 17 GM Packet PO SCH (08:18)
--- NOTE | 2020-05-02 11:10 | PRG ---
DATE OF SERVICE: 05/02/2020 SUBJECTIVE: A 74-year-old male, being seen for end-stage renal disease. The patient denied any nausea, vomiting, or chest pain. PHYSICAL EXAMINATION: General: The patient is awake and alert. Vital Signs: Afebrile, pulse 75, breathing at 16, blood pressure . HEENT: Head normocephalic and atraumatic. Eyes intact, no ulcers. Nose intact, no ulcers. Ears intact, no ulcers. Neck: Supple. No JVD. Chest: Symmetrical and clear. Cardiovascular: Shows S1 and S2, no rub, no murmur. Gastrointestinal: Abdomen is soft, bowel sounds positive. Extremities: Show no edema or ulcers. Skin: Shows no rash or petechiae. Musculoskeletal: Shows no joint swelling or stiffness. Genitourinary: Shows no Call or CVA tenderness. Neurologic: Motor intact. Cranial nerves intact. LABORATORY DATA: Reviewed. ASSESSMENT AND PLAN: 1. Stage 6 chronic kidney disease, stable. 2. Hypertension, stable. 3. Anemia, stable. 4. Medication based on GFR, appropriate. Job ID: [id number]
[2020-05-02] MEDS ORDERED: Doxazosin 2 MG TAB PO SCH (21:00)
[2020-05-02] MEDS ORDERED: Amlodipine 10 MG TAB PO SCH (21:00)
[2020-05-02] MEDS: Atorvastatin Calcium 10 MG TAB PO SCH (21:04)
[2020-05-03] MEDS: Vancomycin HCl 25 MG/ML Oral PO SCH ×2 (06:13→14:43)
[2020-05-03 06:25] LABS: #Basophils 0.1 thou/uL (0.0-0.2); #Eosinphils 0.5 thou/uL (0.0-0.7); #Lymphocytes 2.2 thou/uL (1.20-3.40); #Neutrophils 6.2 thou/uL (1.40-6.50); %Basophils 0.7 % (0.0-1.0); %Eosinophils 4.6 % (0.0-10.0); %Lymphocytes 22.2 % (21.0-51.0); %Neutrophils 62.5 % (42.0-75.0); Hemoglobin 11.2 g/dL (14.0-18.0); Mean Corpuscular HGB CONC 32.4 g/dL (32.0-36.0); Mean Corpuscular Hemoglobin 29.7 pg (27.0-31.0); Mean Corpuscular Volume 91.7 fL (78.0-98.0); Mean Platelet Volume 9.7 fL (7.4-10.4); Platelet Count 282 thou/uL (130-400); RBC Distribution Width 15.9 % (11.5-14.5); Red Blood Cell (RBC) Count 3.76 mill/uL (4.70-6.10); White Blood Cell (WBC) Count 9.9 thou/uL (4.8-10.8)
[2020-05-03 06:43] LABS: Anion Gap 17 mmol/L (10-20); BUN (Urea Nitrogen) 41 mg/dL (8.4-25.7); Calc. Creatinine Clearance 10 mL/min (70-130); Calcium 7.7 mg/dL (7.8-10.44); Carbon Dioxide 22 mmol/L (23-31); Chloride 102 mmol/L (98-107); Estimated GFR-MDRD 9; Glucose 80 mg/dL (83-110); Magnesium 1.9 mg/dL (1.6-2.6); Potassium 4.9 mmol/L (3.5-5.1); Sodium 136 mmol/L (136-145)
[2020-05-03] MEDS: Enoxaparin Sodium 30 MG/0.3 ML SYRINGE SC SCH (08:40)
--- NOTE | 2020-05-03 09:49 | PDOC.HOSPP ---
- Subjective Encounter Date: 05/02/20 Encounter Time: 12:30 Subjective: pt up in bed no complains - Objective Vital Signs & Weight: Vital Signs (12 hours) Temp Pulse Resp BP BP Pulse Ox 05/03/20 07:50 98.3 F 63 17 106/40 L 97 05/03/20 04:00 98.0 F 65 18 124/74 100 05/03/20 00:19 98.5 F 66 17 107/64 98 Weight Admit Weight 150 lb Weight 150 lb I&O: 05/02/20 05/03/20 05/04/20 06:59 06:59 06:59 Intake Total 1070 2230 Balance 1070 2230 Result Diagrams: 05/03/20 06:11 05/03/20 06:11 Additional Labs: Accuchecks 05/03/20 05/03/20 05/02/20 03:50 00:21 20:48 POC Glucose 106 195 H 161 H 05/02/20 05/02/20 05/02/20 15:19 11:45 10:25 POC Glucose 208 H 195 H 193 H Hospitalist ROS - Review of Systems Cardiovascular: denies: chest pain, palpitations, orthopnea, paroxysmal noc. dyspnea, edema, light headedness, other Gastrointestinal: denies: nausea, vomiting, abdominal pain, diarrhea, constipation, melena, hematochezia, other Genitourinary: denies: dysuria, frequency, incontinence, hematuria, retention, other - Medication Medications: Active Medications Generic Name Dose Route Start Last Admin Trade Name Freq PRN Reason Stop Dose Admin Acetaminophen 650 mg 05/01/20 04:31 05/01/20 17:49 Tylenol PO 650 mg Q4H PRN Administration Headache/Fever/Mild Pain (1-3) Amlodipine Besylate 10 mg 05/02/20 21:00 05/02/20 21:03 Norvasc PO 10 mg HS LESTER Administration Aspirin 81 mg 05/02/20 09:00 05/02/20 08:17 Ecotrin PO 81 mg DAILY LESTER Administration Atorvastatin Calcium 10 mg 05/01/20 21:00 05/02/20 21:04 Lipitor PO 10 mg HS LESTER Administration Calcium Acetate 667 mg 05/01/20 12:00 05/02/20 17:12 Phoslo PO 667 mg TID-WM LESTER Administration Dextrose/Water 25 gm 05/01/20 05:49 05/01/20 18:16 Dextrose 50% SLOW IVP 25 gm PRN PRN Administration Hypoglycemia Doxazosin Mesylate 2 mg 05/02/20 21:00 05/02/20 21:02 Cardura PO 2 mg HS LESTER Administration Enoxaparin Sodium 30 mg 05/01/20 09:00 05/03/20 08:40 Lovenox SC 30 mg 0900 LESTER Administration Hydralazine HCl 25 mg 05/02/20 09:00 05/02/20 21:02 Apresoline PO 25 mg TID LESTER Administration Dextrose/Sodium Chloride 1,000 mls @ 100 mls/hr 05/01/20 04:30 05/02/20 00:00 D5 1/2 Ns IV 1,000 mls .Q10H LESTER Administration Insulin Human Lispro 0 units 05/01/20 05:49 05/02/20 17:12 Humalog SC 3 unit .MILD SLIDING SCALE PRN Administration Mild Correctional Scale Isosorbide Mononitrate 60 mg 05/01/20 21:00 05/02/20 21:03 Imdur PO 60 mg BID LESTER Administration Losartan Potassium 100 mg 05/02/20 09:00 05/02/20 08:18 Cozaar PO 100 mg DAILY LESTER Administration Metoprolol Tartrate 50 mg 05/01/20 21:00 05/02/20 21:03 Lopressor PO 50 mg BID LESTER Administration Sevelamer Carbonate 800 mg 05/01/20 12:00 05/02/20 17:12 Renvela PO 800 mg TID-WM LESTER Administration Vancomycin HCl 125 mg 05/03/20 06:00 05/03/20 06:13 First Vancomycin PO 125 mg Q6HR LESTER Administration - Exam Heart: negative: RRR, no murmur, no gallops, no rubs, normal peripheral pulses, irregular, diminshed peripheral pulses, murmur present, II/IV, III/IV Respiratory: negative: CTAB, no wheezes, no rales, no ronchi, normal chest expansion, no tachypnea, normal percussion, rales, rhonchi, tachypneic, wheezes Gastrointestinal: negative: soft, non-tender, non-distended, normal bowel sounds , no palpable masses, no hepatomegaly, no splenomegaly, no bruit, no guarding, no rigidity, tender to palpation, distended, diminished bowl sounds, voluntary guarding Hosp A/P (1) Hypoglycemia Code(s): E16.2 - HYPOGLYCEMIA, UNSPECIFIED Status: Acute (2) Acute metabolic encephalopathy Code(s): G93.41 - METABOLIC ENCEPHALOPATHY Status: Acute (3) Anemia Code(s): D64.9 - ANEMIA, UNSPECIFIED Status: Chronic Qualifiers: Anemia type: due to chronic kidney disease Chronic kidney disease stage: on chronic dialysis Qualified Code(s): N18.6 - End stage renal disease; D63.1 - Anemia in chronic kidney disease; D63.1 - Anemia in chronic kidney disease; Z99.2 - Dependence on renal dialysis; Z99.2 - Dependence on renal dialysis; Z99.2 - Dependence on renal dialysis; Z99.2 - Dependence on renal dialysis (4) Coronary artery disease Code(s): I25.10 - ATHSCL HEART DISEASE OF [place] CORONARY ARTERY W/O ANG PCTRS Status: Chronic (5) Diabetes mellitus type 2 in nonobese Code(s): E11.9 - TYPE 2 DIABETES MELLITUS WITHOUT COMPLICATIONS Status: Chronic - Plan pt doing well. His antidiabetic med stopped. will stop iv d5 and if he does well will discharge home. However nurse reported pt is now having multiple episodes of diarrhea. will check cdiff. spoke with brother and updated him.
--- NOTE | 2020-05-03 12:16 | PRG ---
DATE OF SERVICE: 05/03/2020 SUBJECTIVE: This is a 74-year-old gentleman being seen for end-stage renal disease. The patient denied nausea, vomiting, or chest pain. OBJECTIVE: GENERAL: The patient is awake and alert. VITAL SIGNS: Afebrile, pulse 60, breathing at 16, blood pressure . GENERAL APPEARANCE AND MENTAL STATUS: Fair. HEAD/NECK: Normocephalic. Atraumatic. EYES: EOMI. No deformity. EARS: Clear. No ulcers. NOSE: Intact. No lesions. MOUTH: Clear. No discharge. THROAT: Clear. No exudate. LUNGS: Clear. No crackles. CARDIAC: S1, S2. No rub. ABDOMEN: Benign. Bowel sounds positive. GENITALIA/RECTUM: Call absent. BACK/EXTREMITIES: Edema 0+. NEUROLOGICAL: Alert and motor intact. SKIN: LYMPHATICS: ASSESSMENT AND PLAN: 1. Stage 6 chronic kidney disease. Plan dialysis per schedule. 2. Hypertension, stable. 3. Anemia, stable. Medication based on GFR appropriate. Job ID: [id number]
[2020-05-03] MEDS: hydrALAZINE 25 MG TAB PO SCH ×2 (13:39→14:43)
[2020-05-03] MEDS: Sevelamer Carbonate 800 MG TAB PO SCH ×2 (13:39→14:42)
[2020-05-03] MEDS: Calcium Acetate 667 MG CAP PO SCH ×2 (13:39→14:42)
[2020-05-03 14:19] VITALS: BP 150/65; TEMP 97.9
[2020-05-03] MEDS: Losartan 25 MG TAB PO SCH (14:42)
[2020-05-03] MEDS: Metoprolol Tartrate 50 MG TAB PO SCH (14:43)
[2020-05-03] MEDS: Aspirin 81 mg Enteric Coated Tablet PO SCH (14:43)
--- NOTE | 2020-05-04 02:20 | DIS ---
DATE OF ADMISSION: 05/01/2020 DATE OF DISCHARGE: 05/03/2020 DISCHARGE DIAGNOSES: 1. Hypoglycemia. 2. Acute metabolic encephalopathy most likely secondary to hypoglycemia. 3. Diabetes. 4. C. difficile toxin and toxin positive, new diagnosis. HOSPITAL COURSE: The patient is a 74-year-old male who initially presented to the hospital with a change in mental status. He was found down by the patient's brother. At this time, his sugars were very low in the 30s and also he was hypotensive. The patient was seen in the hospital. He was admitted and was started on a dextrose drip. He improved. His medication was discontinued. The patient was on glipizide. I did speak with the patient's brother and told him and updated him. The patient's brother also mentioned something in regard to taking multiple blood pressure medications. I did tell him that his blood pressure ranged from 170 to a low of 110. I recommended stopping the Norvasc for now and also to continue to monitor his blood pressure 3 or 4 times a day which the family has been doing. While he was in the hospital, he started having significant amount of diarrhea, his stool was tested, which was positive for C. difficile. He was put on oral vancomycin. His diarrhea has improved. He is able to eat without any problems. DISCHARGE MEDICATIONS: He will be discharged home with oral vanco 125 q.6 hours for 14 days, simvastatin 20 mg at bedtime, Renvela 800 mg t.i.d., aspirin 81 mg daily, PhosLo 667 t.i.d. with meals, isosorbide 60 mg twice a day, metoprolol 50 mg twice a day, Cardura 2 mg p.o. at bedtime, hydralazine 25 mg t.i.d., Norvasc 10 mg has been discontinued. PHYSICAL EXAMINATION: VITAL SIGNS: Temperature of 97.9, heart rate 73, respiratory rate 16, sats 100% on room air, blood pressure 150/65. GENERAL: He is awake, alert, and oriented x3, does not appear in distress. CV: S1, S2 present. No murmurs, rubs, or gallops. The patient has been advised to wash his hands carefully, especially when he goes to the bathroom. TIME SPENT: Greater than 30 minutes were used to discharge the patient. Job ID: [id number]
== END 2020-05-03 15:49 | disposition home or self-care (01) ==
LOC: ERS 00:41 → T4-B 03:50
PROVIDERS: ADMIT Internal Medicine; ATTEND Internal Medicine
DX: E11.649 Type 2 diabetes mellitus with hypoglycemia without coma (principal); G93.41 Metabolic encephalopathy; I12.0 Hypertensive chronic kidney disease with stage 5 chronic kidney disease or end stage renal disease; E11.22 Type 2 diabetes mellitus with diabetic chronic kidney disease; N18.6 End stage renal disease; D63.1 Anemia in chronic kidney disease; A04.72 Enterocolitis due to Clostridium difficile, not specified as recurrent; E11.622 Type 2 diabetes mellitus with other skin ulcer; L98.499 Non-pressure chronic ulcer of skin of other sites with unspecified severity; D72.829 Elevated white blood cell count, unspecified; I25.10 Atherosclerotic heart disease of native coronary artery without angina pectoris; Z87.891 Personal history of nicotine dependence; Z79.2 Long term (current) use of antibiotics; Z79.82 Long term (current) use of aspirin; Z79.84 Long term (current) use of oral hypoglycemic drugs; Z79.899 Other long term (current) drug therapy; Z95.1 Presence of aortocoronary bypass graft; Z95.5 Presence of coronary angioplasty implant and graft; Z99.2 Dependence on renal dialysis
CPT/HCPCS: 36415; 36416; 71045; 80048; 80053; 81001; 82533; 83605; 83630; 83735; 84439; 84443; 85025; 87040; 87324; 87449; 87493; 90935; 96365; 96367; 96372; 96375; 96376; G0257; G0378; J0692; J0696; J1650; J3370

== ENCOUNTER 2020-05-04 14:43 | Outpatient (CLI) | payer BC ==
--- NOTE | 2020-05-04 15:24 | RAD ---
EXAM: XR Pelvis Minimum 3 Views PROVIDED CLINICAL HISTORY: Sacral pressure ulcer. COMPARISON: None FINDINGS: No fracture or dislocation is seen. No osseous destruction is seen involving the sacrum on the latera l view. The sacrum is not well seen on frontal projection due to overlying bowel gas. Vascular calcifications are seen in the abdominal aorta, iliac arteries as well as involving the visualized fe moral arteries. IMPRESSION: No acute osseous abnormality is seen on this examination. If there is concern for osteomyelitis, MRI with and without IV contrast would be better study of choice for further evaluation.
== END 2020-05-04 14:44 | disposition home or self-care (01) ==
LOC: RAD 14:43
PROVIDERS: ATTEND Nurse Practitioner Family
DX: E11.622 Type 2 diabetes mellitus with other skin ulcer (principal); L89.154 Pressure ulcer of sacral region, stage 4; E11.22 Type 2 diabetes mellitus with diabetic chronic kidney disease; N18.9 Chronic kidney disease, unspecified
CPT/HCPCS: 72190

== ENCOUNTER 2020-06-18 10:18 | Outpatient (CLI) | payer BC ==
--- NOTE | 2020-06-18 12:37 | MRI ---
Exam: Pelvis MRI without IV contrast: HISTORY: Pressure ulcer of sacral region, stage IV FINDINGS: There is an open wound noted overlying the lower sacrum to the right of midline with subcutaneous javy ma and fat stranding extending cranially and caudally from this region over the course of a total of 16 cm. This wound extends down to and abuts the underlying dorsal sacrum. There is a small focus o f some T2 hyperintensity with indistinct T1 signal concerning for least nonspecific osteitis but could well represent early minimal osteomyelitis. No discrete drainable abscess although the lack of IV contrast lowers the sensitivity in regards. Additionally, there is some motion artifact on multiple sequences in this region which also lowers the sensitivity of this study. IMPRESSION: Open wound with abnormal edema and/or cellulitis within the subcutaneous tissue extending cranially a nd caudally as well as medial and lateral to the open wound. In the midline of the sacrum just to the left of the open wound there is a small focus of abnormal signal involving the dorsal aspect of t he sacrum concerning for nonspecific osteitis and probable minimal focal osteomyelitis. No identifiable drainable abscess.
== END 2020-06-18 10:19 | disposition home or self-care (01) ==
LOC: BICMRI 10:18
PROVIDERS: ATTEND Nurse Practitioner Family
DX: L89.154 Pressure ulcer of sacral region, stage 4 (principal); R60.0 Localized edema; S31.000A Unspecified open wound of lower back and pelvis without penetration into retroperitoneum, initial encounter
CPT/HCPCS: 72195

== ENCOUNTER 2021-02-05 16:11 | Emergency (ER) | payer BC ==
[2021-02-05] MEDS ORDERED: Boostrix 0.5 ML (Tdap) VIAL ONE (16:31)
== END 2021-02-05 18:10 | disposition home or self-care (01) ==
LOC: ERS 16:11
DX: S22.32XA Fracture of one rib, left side, initial encounter for closed fracture (principal); S00.03XA Contusion of scalp, initial encounter; S50.312A Abrasion of left elbow, initial encounter; W01.198A Fall on same level from slipping, tripping and stumbling with subsequent striking against other object, initial encounter; Z79.899 Other long term (current) drug therapy; N18.6 End stage renal disease; E11.22 Type 2 diabetes mellitus with diabetic chronic kidney disease; I12.0 Hypertensive chronic kidney disease with stage 5 chronic kidney disease or end stage renal disease; Z87.891 Personal history of nicotine dependence
CPT/HCPCS: 70450; 90471; 90715

== ENCOUNTER 2021-03-15 04:49 | Inpatient (IN) | payer MEDICARE ==
[2021-03-15] MEDS ORDERED: Dextrose 50% Abboject 50 ML SYRINGE ONE (04:56)
[2021-03-15 05:27] LABS: #Basophils 0.1 thou/uL (0.0-0.2); #Monocytes 0.9 thou/uL (0.11-0.59); #Neutrophils 12.3 thou/uL (1.40-6.50); %Basophils 0.5 % (0.0-1.0); %Eosinophils 0.3 % (0.0-10.0); %Lymphocytes 12.9 % (21.0-51.0); %Monocytes 5.7 % (0.0-10.0); %Neutrophils 80.6 % (42.0-75.0); Hemoglobin 10.4 g/dL (14.0-18.0); Mean Corpuscular Hemoglobin 31.9 pg (27.0-31.0); Mean Platelet Volume 11.1 fL (7.4-10.4); Platelet Count 256 thou/uL (130-400); RBC Distribution Width 17.2 % (11.5-14.5); Red Blood Cell (RBC) Count 3.26 mill/uL (4.70-6.10); White Blood Cell (WBC) Count 15.3 thou/uL (4.8-10.8)
[2021-03-15 05:53] LABS: ALT (SGPT) Less than 7 U/L (8-55); AST (SGOT) 23 U/L (5-34); Albumin 3.2 g/dL (3.4-4.8); Alkaline Phosphatase 96 U/L (40-110); Anion Gap 16 mmol/L (10-20); BUN (Urea Nitrogen) 30 mg/dL (8.4-25.7); Bilirubin, Total 0.3 mg/dL (0.2-1.2); Calc. Creatinine Clearance 0 mL/min (70-130); Calcium 8.7 mg/dL (7.8-10.44); Carbon Dioxide 27 mmol/L (23-31); Chloride 99 mmol/L (98-107); Potassium 4.4 mmol/L (3.5-5.1); Protein, Total 6.2 g/dL (5.8-8.1); Sodium 138 mmol/L (136-145)
[2021-03-15 06:00] LABS: Glucose 16 mg/dL (83-110)
[2021-03-15 06:19] LABS: CKMB 2.2 ng/mL (0-6.6)
[2021-03-15] MEDS ORDERED: Aspirin 325 MG TAB ONE (06:30)
[2021-03-15 08:37] LABS: Critical Call Chem Troponin I RESULT DECREASING; Troponin I 0.631 ng/mL (< 0.028)
[2021-03-15] MEDS ORDERED: Ondansetron PF 4 MG/2 ML Vial IVP PRN (08:52)
[2021-03-15] MEDS ORDERED: Acetaminophen 325 MG TAB PO PRN (08:52)
[2021-03-15] MEDS ORDERED: Dextrose 5% in Water 1,000 ML IV PRN (08:56)
[2021-03-15] MEDS ORDERED: Enoxaparin Sodium 40 MG/0.4 ML SYRINGE SC SCH (09:00)
[2021-03-15] MEDS: Dextrose 50% Abboject 50 ML SYRINGE SLOW IVP PRN ×2 (11:44→12:18)
[2021-03-15] MEDS ORDERED: Enoxaparin Sodium 30 MG/0.3 ML SYRINGE SC SCH (11:45)
[2021-03-15] MEDS: cefTRIAXone\\ROCEPHIN 1 GM in Sodium Chloride 0.9% 100 ML IVPB SCH (11:59)
[2021-03-15] MEDS: Aspirin 81 mg Enteric Coated Tablet PO SCH (11:59)
[2021-03-15 12:13] VITALS: BMI 23.8
[2021-03-15] MEDS: Calcium Acetate 667 MG CAP PO SCH ×2 (12:32→16:32)
[2021-03-15] MEDS: Sevelamer Carbonate 800 MG TAB PO SCH ×2 (12:32→16:32)
[2021-03-15 13:34] LABS: SARS-CoV-2 PCR by NAA Not Detected (NotDetected)
[2021-03-15] MEDS: Dextrose 10% in Water 1,000 ML IV SCH (14:18)
[2021-03-15 14:23] LABS: Lactic Acid 2.6 mmol/L (0.5-2.2)
[2021-03-15 14:41] LABS: Bacteria/HPF None Seen HPF (None Seen); Bilirubin Negative (Negative); Blood, Urine Negative (Negative); Clarity Clear (Clear); Glucose, Urine (Dipstick) 70 mg/dL (Negative); Ketone, Urine Negative (Negative); Leukocyte Negative Leu/uL (Negative); Nitrite Negative (Negative); Protein, Urine (Dipstick) 300 mg/dL (Neg-Trace); RBC/HPF 0-3 HPF (0-3); Specific Gravity, Urine 1.015 (1.002-1.036); Squamous Epithelial None Seen HPF (0-3); Urobilinogen Normal mg/dL (Less than 2); WBC/HPF 0-3 HPF (0-3)
[2021-03-15] MEDS: Atorvastatin Calcium 10 MG TAB PO SCH (20:22)
[2021-03-15] MEDS ORDERED: Simvastatin 20 MG TAB PO SCH (21:00)
[2021-03-16] MEDS: Dextrose 50% Abboject 50 ML SYRINGE SLOW IVP PRN ×2 (02:11→05:27)
[2021-03-16 03:44] LABS: #Basophils 0.1 thou/uL (0.0-0.2); #Eosinphils 0.1 thou/uL (0.0-0.7); #Lymphocytes 1.7 thou/uL (1.20-3.40); #Monocytes 0.7 thou/uL (0.11-0.59); %Basophils 1.1 % (0.0-1.0); %Eosinophils 1.5 % (0.0-10.0); %Lymphocytes 26.1 % (21.0-51.0); %Monocytes 10.7 % (0.0-10.0); %Neutrophils 60.6 % (42.0-75.0); Hemoglobin 8.9 g/dL (14.0-18.0); Mean Platelet Volume 10.5 fL (7.4-10.4); Platelet Count 199 thou/uL (130-400); RBC Distribution Width 16.6 % (11.5-14.5); Red Blood Cell (RBC) Count 2.78 mill/uL (4.70-6.10); White Blood Cell (WBC) Count 6.6 thou/uL (4.8-10.8)
[2021-03-16 03:45] LABS: Hemoglobin A1c 4.7 % (4.0-6.0)
[2021-03-16 03:57] LABS: ALT (SGPT) Less than 7 U/L (8-55); AST (SGOT) 8 U/L (5-34); Albumin 2.6 g/dL (3.4-4.8); Alkaline Phosphatase 83 U/L (40-110); Anion Gap 14 mmol/L (10-20); BUN (Urea Nitrogen) 37 mg/dL (8.4-25.7); Bilirubin, Total 0.4 mg/dL (0.2-1.2); Calc. Creatinine Clearance 14 mL/min (70-130); Calcium 8.2 mg/dL (7.8-10.44); Carbon Dioxide 26 mmol/L (23-31); Chloride 98 mmol/L (98-107); Globulin 2.4 g/dL (2.4-3.5); Glucose 94 mg/dL (83-110); Potassium 3.9 mmol/L (3.5-5.1); Sodium 134 mmol/L (136-145)
[2021-03-16] MEDS: Aspirin 81 mg Enteric Coated Tablet PO SCH (07:51)
[2021-03-16] MEDS: Calcium Acetate 667 MG CAP PO SCH ×3 (07:51→17:46)
[2021-03-16] MEDS: Enoxaparin Sodium 30 MG/0.3 ML SYRINGE SC SCH (07:52)
[2021-03-16] MEDS: Sevelamer Carbonate 800 MG TAB PO SCH ×3 (07:52→17:46)
[2021-03-16] MEDS: Dextrose 10% in Water 1,000 ML IV SCH ×2 (07:52→19:42)
[2021-03-16] MEDS: cefTRIAXone\\ROCEPHIN 1 GM in Sodium Chloride 0.9% 100 ML IVPB SCH (12:53)
[2021-03-16] MEDS: Atorvastatin Calcium 10 MG TAB PO SCH (19:42)
[2021-03-17 02:56] LABS: #Basophils 0.1 thou/uL (0.0-0.2); #Eosinphils 0.2 thou/uL (0.0-0.7); #Lymphocytes 2.1 thou/uL (1.20-3.40); #Monocytes 0.7 thou/uL (0.11-0.59); #Neutrophils 4.5 thou/uL (1.40-6.50); %Basophils 1.7 % (0.0-1.0); %Eosinophils 3.2 % (0.0-10.0); %Lymphocytes 27.4 % (21.0-51.0); %Monocytes 9.6 % (0.0-10.0); Hemoglobin 10.1 g/dL (14.0-18.0); Mean Corpuscular HGB CONC 31.5 g/dL (32.0-36.0); Mean Corpuscular Hemoglobin 32.6 pg (27.0-31.0); Mean Platelet Volume 10.6 fL (7.4-10.4); Platelet Count 201 thou/uL (130-400); RBC Distribution Width 16.5 % (11.5-14.5); Red Blood Cell (RBC) Count 3.09 mill/uL (4.70-6.10); White Blood Cell (WBC) Count 7.7 thou/uL (4.8-10.8)
[2021-03-17 03:30] LABS: Anion Gap 13 mmol/L (10-20); BUN (Urea Nitrogen) 25 mg/dL (8.4-25.7); Calc. Creatinine Clearance 18 mL/min (70-130); Calcium 8.3 mg/dL (7.8-10.44); Carbon Dioxide 29 mmol/L (23-31); Chloride 100 mmol/L (98-107); Glucose 126 mg/dL (83-110); Magnesium 1.8 mg/dL (1.6-2.6); Phosphorus 2.6 mg/dL (2.3-4.7); Potassium 4.1 mmol/L (3.5-5.1); Sodium 138 mmol/L (136-145)
[2021-03-17] MEDS: Sevelamer Carbonate 800 MG TAB PO SCH ×3 (09:31→17:13)
[2021-03-17] MEDS: cefTRIAXone\\ROCEPHIN 1 GM in Sodium Chloride 0.9% 100 ML IVPB SCH (09:31)
[2021-03-17] MEDS: Calcium Acetate 667 MG CAP PO SCH ×3 (09:31→17:13)
[2021-03-17] MEDS: Enoxaparin Sodium 30 MG/0.3 ML SYRINGE SC SCH (09:31)
[2021-03-17] MEDS: Aspirin 81 mg Enteric Coated Tablet PO SCH (09:31)
[2021-03-17] MEDS: Atorvastatin Calcium 10 MG TAB PO SCH (20:23)
[2021-03-18 04:49] LABS: #Basophils 0.1 thou/uL (0.0-0.2); #Eosinphils 0.3 thou/uL (0.0-0.7); #Lymphocytes 2.5 thou/uL (1.20-3.40); #Monocytes 0.9 thou/uL (0.11-0.59); #Neutrophils 4.4 thou/uL (1.40-6.50); %Eosinophils 3.6 % (0.0-10.0); %Lymphocytes 30.9 % (21.0-51.0); %Monocytes 10.6 % (0.0-10.0); Hemoglobin 10.1 g/dL (14.0-18.0); Mean Corpuscular Hemoglobin 32.1 pg (27.0-31.0); Mean Platelet Volume 10.9 fL (7.4-10.4); Platelet Count 194 thou/uL (130-400); RBC Distribution Width 16.5 % (11.5-14.5); Red Blood Cell (RBC) Count 3.15 mill/uL (4.70-6.10); White Blood Cell (WBC) Count 8.2 thou/uL (4.8-10.8)
[2021-03-18 05:05] LABS: ALT (SGPT) Less than 7 U/L (8-55); AST (SGOT) 12 U/L (5-34); Albumin 2.8 g/dL (3.4-4.8); Alkaline Phosphatase 111 U/L (40-110); Anion Gap 14 mmol/L (10-20); BUN (Urea Nitrogen) 33 mg/dL (8.4-25.7); Bilirubin, Total 0.3 mg/dL (0.2-1.2); Calc. Creatinine Clearance 14 mL/min (70-130); Calcium 8.3 mg/dL (7.8-10.44); Carbon Dioxide 27 mmol/L (23-31); Chloride 99 mmol/L (98-107); Globulin 2.6 g/dL (2.4-3.5); Glucose 74 mg/dL (83-110); Potassium 4.3 mmol/L (3.5-5.1); Protein, Total 5.4 g/dL (5.8-8.1); Sodium 136 mmol/L (136-145)
[2021-03-18] MEDS: Enoxaparin Sodium 30 MG/0.3 ML SYRINGE SC SCH (07:51)
[2021-03-18] MEDS: Aspirin 81 mg Enteric Coated Tablet PO SCH (07:51)
[2021-03-18] MEDS: Calcium Acetate 667 MG CAP PO SCH ×3 (07:51→17:14)
[2021-03-18] MEDS: Sevelamer Carbonate 800 MG TAB PO SCH ×3 (07:51→17:14)
[2021-03-18] MEDS: Atorvastatin Calcium 10 MG TAB PO SCH (21:05)
[2021-03-19 03:48] LABS: #Basophils 0.1 thou/uL (0.0-0.2); #Eosinphils 0.3 thou/uL (0.0-0.7); #Lymphocytes 2.4 thou/uL (1.20-3.40); #Monocytes 0.8 thou/uL (0.11-0.59); #Neutrophils 4.9 thou/uL (1.40-6.50); %Basophils 1.5 % (0.0-1.0); %Eosinophils 3.8 % (0.0-10.0); %Lymphocytes 28.1 % (21.0-51.0); %Monocytes 9.4 % (0.0-10.0); %Neutrophils 57.2 % (42.0-75.0); Hemoglobin 10.6 g/dL (14.0-18.0); Mean Corpuscular HGB CONC 31.2 g/dL (32.0-36.0); Mean Corpuscular Hemoglobin 32.1 pg (27.0-31.0); Mean Platelet Volume 10.8 fL (7.4-10.4); Platelet Count 213 thou/uL (130-400); RBC Distribution Width 16.1 % (11.5-14.5); Red Blood Cell (RBC) Count 3.29 mill/uL (4.70-6.10); White Blood Cell (WBC) Count 8.6 thou/uL (4.8-10.8)
[2021-03-19 04:07] LABS: Anion Gap 14 mmol/L (10-20); BUN (Urea Nitrogen) 40 mg/dL (8.4-25.7); Calc. Creatinine Clearance 12 mL/min (70-130); Calcium 8.8 mg/dL (7.8-10.44); Carbon Dioxide 26 mmol/L (23-31); Chloride 100 mmol/L (98-107); Glucose 77 mg/dL (83-110); Potassium 4.6 mmol/L (3.5-5.1); Sodium 135 mmol/L (136-145)
[2021-03-19] MEDS: Enoxaparin Sodium 30 MG/0.3 ML SYRINGE SC SCH (09:11)
[2021-03-19] MEDS: Calcium Acetate 667 MG CAP PO SCH ×3 (09:11→17:00)
[2021-03-19] MEDS: Aspirin 81 mg Enteric Coated Tablet PO SCH (09:11)
[2021-03-19] MEDS: Sevelamer Carbonate 800 MG TAB PO SCH ×3 (09:11→17:00)
[2021-03-19] MEDS: Atorvastatin Calcium 10 MG TAB PO SCH (20:34)
[2021-03-20 05:56] LABS: #Basophils 0.1 thou/uL (0.0-0.2); #Eosinphils 0.3 thou/uL (0.0-0.7); #Lymphocytes 1.7 thou/uL (1.20-3.40); #Monocytes 0.6 thou/uL (0.11-0.59); #Neutrophils 4.1 thou/uL (1.40-6.50); %Basophils 1.3 % (0.0-1.0); %Eosinophils 4.1 % (0.0-10.0); %Lymphocytes 25.3 % (21.0-51.0); %Monocytes 8.7 % (0.0-10.0); %Neutrophils 60.7 % (42.0-75.0); Hemoglobin 10.7 g/dL (14.0-18.0); Mean Corpuscular HGB CONC 31.9 g/dL (32.0-36.0); Mean Corpuscular Hemoglobin 32.7 pg (27.0-31.0); Mean Platelet Volume 10.6 fL (7.4-10.4); Platelet Count 212 thou/uL (130-400); RBC Distribution Width 15.8 % (11.5-14.5); Red Blood Cell (RBC) Count 3.28 mill/uL (4.70-6.10); White Blood Cell (WBC) Count 6.8 thou/uL (4.8-10.8)
[2021-03-20 06:10] LABS: Anion Gap 14 mmol/L (10-20); BUN (Urea Nitrogen) 24 mg/dL (8.4-25.7); Calc. Creatinine Clearance 16 mL/min (70-130); Calcium 8.5 mg/dL (7.8-10.44); Carbon Dioxide 29 mmol/L (23-31); Chloride 101 mmol/L (98-107); Glucose 89 mg/dL (83-110); Potassium 4.5 mmol/L (3.5-5.1); Sodium 139 mmol/L (136-145)
[2021-03-20] MEDS: Enoxaparin Sodium 30 MG/0.3 ML SYRINGE SC SCH (08:16)
[2021-03-20] MEDS: Calcium Acetate 667 MG CAP PO SCH ×3 (08:16→17:37)
[2021-03-20] MEDS: Aspirin 81 mg Enteric Coated Tablet PO SCH (08:16)
[2021-03-20] MEDS: Sevelamer Carbonate 800 MG TAB PO SCH ×3 (08:16→17:37)
[2021-03-20] MEDS: Atorvastatin Calcium 10 MG TAB PO SCH (20:18)
[2021-03-20] MEDS: Gemfibrozil 600 MG TAB PO SCH (20:18)
[2021-03-21] MEDS ORDERED: Multivitamin W/ Minerals 1 TAB PO SCH (09:00)
[2021-03-21] MEDS ORDERED: Metoprolol Tartrate 50 MG TAB PO SCH (09:00)
[2021-03-21] MEDS ORDERED: Folic Acid 1 MG TAB PO SCH (09:00)
[2021-03-21] MEDS ORDERED: Zinc Sulfate 220 MG CAP PO SCH (09:00)
[2021-03-21] MEDS: Calcium Acetate 667 MG CAP PO SCH ×2 (10:00→12:37)
[2021-03-21] MEDS: Sevelamer Carbonate 800 MG TAB PO SCH ×2 (10:00→12:37)
[2021-03-21] MEDS: Aspirin 81 mg Enteric Coated Tablet PO SCH (12:34)
[2021-03-21] MEDS: Gemfibrozil 600 MG TAB PO SCH (12:35)
[2021-03-21] MEDS: Enoxaparin Sodium 30 MG/0.3 ML SYRINGE SC SCH (12:49)
[2021-03-21 15:42] VITALS: BP 128/73; TEMP 98
== END 2021-03-21 16:10 | disposition home or self-care (01) | DRG 637 ==
LOC: ERS 04:49 → ERHOLD 06:45 → 2NO 11:28 → IMCU/EMU 18:45 → OBSVTOIN 03-16 16:38 → SURG A 03-19 08:12
PROVIDERS: ADMIT Internal Medicine; ATTEND Internal Medicine
PROC: 5A1D70Z Performance of Urinary Filtration, Intermittent, Less than 6 Hours Per Day (ICD-10-PCS; principal; 2021-03-16)
PROC: 8E0ZXY6 Isolation (ICD-10-PCS; 2021-03-16)
DX: E11.649 Type 2 diabetes mellitus with hypoglycemia without coma (principal); G93.41 Metabolic encephalopathy; I12.0 Hypertensive chronic kidney disease with stage 5 chronic kidney disease or end stage renal disease; Z20.822 Contact with and (suspected) exposure to COVID-19; E78.5 Hyperlipidemia, unspecified; N18.6 End stage renal disease; E11.22 Type 2 diabetes mellitus with diabetic chronic kidney disease; D63.1 Anemia in chronic kidney disease; E88.09 Other disorders of plasma-protein metabolism, not elsewhere classified; I95.9 Hypotension, unspecified; I25.10 Atherosclerotic heart disease of native coronary artery without angina pectoris; E11.40 Type 2 diabetes mellitus with diabetic neuropathy, unspecified; I08.3 Combined rheumatic disorders of mitral, aortic and tricuspid valves; E11.65 Type 2 diabetes mellitus with hyperglycemia; Z99.2 Dependence on renal dialysis; Z79.899 Other long term (current) drug therapy; Z79.82 Long term (current) use of aspirin; Z95.1 Presence of aortocoronary bypass graft; Z95.5 Presence of coronary angioplasty implant and graft; Z87.11 Personal history of peptic ulcer disease; Z86.73 Personal history of transient ischemic attack (TIA), and cerebral infarction without residual deficits; Z79.84 Long term (current) use of oral hypoglycemic drugs
CPT/HCPCS: 36415; 36416; 80048; 80053; 81003; 81015; 82533; 82553; 82607; 82746; 83036; 83605; 83735; 84100; 84443; 84484; 85025; 87040; 87635; 90935; 93005; 93306; 96372; 96374; 96375; 96376; G0257; G0378; J0696; J1610; J1650; J3490; U0003; U0005